=== PATIENT | female | born 1940 | race African-American/Black ===

== ENCOUNTER 2018-03-17 16:24 | Inpatient (IN) | payer MEDICARE, OTHER ==
[~2018-03-17 16:24] MED LIST: ISOVUE-370 76%-LOCM 1 ML ONE
[2018-03-17] MEDS ORDERED: fentaNYL Citrate/PF 2,000 MCG in Sodium Chloride 0.9% 60 ML IV SCH ×2 (16:47→19:33)
[2018-03-17] MEDS ORDERED: Piperacillin/Tazobactam 3.375 GM VIAL ONE (16:50)
--- NOTE | 2018-03-17 16:55 | CT ---
CT BRAIN NONCONTRAST: 03/17/18 at 4:44 p.m. HISTORY: 77-year-old female with acute onset of right facial droop, altered mental status, and seizure. Dr. Dodge gave this stroke alert protocol report by telephone to Dr. Pelletier of the Emergency Departmen t of 4:51 p.m. on 03/17/18. FINDINGS: There is no midline shift or any other mass effect. There is no evidence of acute intracranial hemor rhage, large cortical infarct, obstructive hydrocephalus, or extraaxial fluid collection. The calvar ium is intact. There is diffuse parenchymal volume loss. There are low attenuation areas in the whi te matter. These are nonspecific, but in a patient of this age, they are probably chronic ischemic w mariana matter changes due to microvascular atherosclerosis. IMPRESSION: 1) No acute intracranial findings. 2) Involutional changes and chronic ischemic white matter changes. Code CR jn [] POS: [facility]
[2018-03-17 16:56] LABS: #Eosinphils 0.1 thou/uL (0.0-0.7); #Lymphocytes 0.8 thou/uL (1.20-3.40); #Monocytes 0.4 thou/uL (0.11-0.59); #Neutrophils 12.9 thou/uL (1.40-6.50); %Basophils 0.2 % (0.0-1.0); %Eosinophils 0.6 % (0.0-10.0); %Lymphocytes 5.4 % (21.0-51.0); %Monocytes 2.5 % (0.0-10.0); %Neutrophils 91.4 % (42.0-75.0); Hemoglobin 11.9 g/dL (12.0-16.0); Mean Corpuscular Hemoglobin 25.9 pg (27.0-31.0); Mean Corpuscular Volume 86.3 fL (78.0-98.0); Mean Platelet Volume 6.9 fL (7.4-10.4); Platelet Count 193 thou/uL (130-400); Red Blood Cell (RBC) Count 4.57 mill/uL (4.20-5.40); White Blood Cell (WBC) Count 14.1 thou/uL (4.8-10.8)
[2018-03-17] MEDS ORDERED: levETIRAcetam In NaCl (Iso-Os) 1,500 MG in Premix Bag 1 BAG IVPB ONE (17:00)
[2018-03-17 17:21] LABS: Analyzer IN Cardio ER; Base Excess (BEa) 0.8 mEq/L (-2.0 to +3.0); CO2 Tension 49.9 mmHg (35.0-45.0); Calcium, Ionized 1.14 mmol/L (1.12-1.30); Carboxyhemoglobin (COHb) 0.4 gm% (0.0-3.0); Hemoglobin (Hb) 12.3 g/dL (12.0-16.0); O2 Tension (PaO2) 107.7 mmHg (> 70.0); Potassium - ABG Lab 3.22 mmol/L (3.70-5.30); pH, Arterial 7.35 (7.35-7.45)
[2018-03-17 17:22] LABS: ALV-art Gradient 257.725 (0-20); Puncture Site LRA
[2018-03-17 17:24] LABS: Bilirubin Negative (Negative); Blood, Urine Negative (Negative); Clarity CLOUDY (Clear); Glucose, Urine (Dipstick) Negative (Negative); Leukocyte Negative (Negative); Nitrite Negative (Negative); Protein, Urine (Dipstick) Negative (Neg-Trace); pH, Urine 6.5 (5.0-9.0)
[2018-03-17 17:32] LABS: Medtox Reader # READER 4
[2018-03-17 17:33] LABS: Amphetamine Not Detected (NotDetected); Barbiturates Screen Not Detected (NotDetected); Benzodiazepine Screen Not Detected (NotDetected); Cocaine Metabolite Screen Not Detected (NotDetected); Medtox Control Line Valid? VALID (VALID); Methadone Not Detected (NotDetected); Methamphetamine Not Detected (NotDetected); Opiate Screen Detected (NotDetected); Oxycodone Screen Not Detected (NotDetected); Phencyclidine (PCP) Not Detected (NotDetected); THC/Cannabinoid Screen Not Detected (NotDetected); Tricyclic Screen Not Detected (NotDetected)
[2018-03-17 17:38] LABS: INR-International Normal Ratio 1.1; Prothrombin Time 14.4 SEC (12.0-14.7)
[2018-03-17 17:40] LABS: PTT 19.3 SEC (22.9-36.1)
[2018-03-17 17:47] LABS: Acetaminophen Less than 6.0 mcg/mL (10.0-30.0); Alcohol Less than 10 mg/dL (Less than 10); CK (CPK) 75 U/L (29-168); Lipase 14 U/L (8-78); Magnesium 1.8 mg/dL (1.6-2.6); Salicylate Less than 8.0 mg/dL (15.0-30.0)
[2018-03-17 17:48] LABS: ALT (SGPT) 8 U/L (8-55); AST (SGOT) 15 U/L (5-34); Albumin 3.8 g/dL (3.4-4.8); Alkaline Phosphatase 105 U/L (40-150); Anion Gap 16 mmol/L (10-20); BUN (Urea Nitrogen) 13 mg/dL (9.8-20.1); Bilirubin, Total 0.5 mg/dL (0.2-1.2); Calc. Creatinine Clearance 0 mL/min (70-130); Calcium 8.7 mg/dL (7.8-10.44); Carbon Dioxide 21 mmol/L (23-31); Chloride 102 mmol/L (98-107); Estimated GFR-MDRD 63; Globulin 3.4 g/dL (2.4-3.5); Glucose 120 mg/dL (83-110); Potassium 3.3 mmol/L (3.5-5.1); Protein, Total 7.2 g/dL (6.0-8.3); Sodium 136 mmol/L (136-145)
[2018-03-17 17:52] LABS: CKMB 0.9 ng/mL (0-6.6); Troponin I Less than 0.010 ng/mL (< 0.028)
--- NOTE | 2018-03-17 17:58 | RAD ---
RADIOGRAPH CHEST 1 VIEW: Date: 03/17/18 Time: 5:21 p.m. HISTORY: 77-year-old female with altered mental status, status post seizure. Status post intubation. COMPARISON: 10/30/16. FINDINGS: There is a new endotracheal tube deep in the right main stem bronchus, at origin of right lower lobe bronchus. This is a supine image, which would be insensitive for pneumothorax detection. No cardiomeg sallie. Ectasia and tortuosity of the thoracic aorta. No consolidation or pulmonary edema. Lateral costo phrenic angles are sharp. IMPRESSION: 1. Endotracheal tube deep in the right main stem bronchus. 2. Ectasia and tortuosity of thoracic aorta. 3. No acute pulmonary findings. MERLE [] POS: [facility]
--- NOTE | 2018-03-17 18:06 | CT ---
CT ANGIOGRAM HEAD WITH CONTRAST CT ANGIOGRAM NECK WITH CONTRAST: 03/17/18 HISTORY: 77-year-old female with acute altered mental status and right sided facial droop. TECHNIQUE: IV contrast: 100 mL Isovue 370. Arterial bolus chasing technique scan from aortopulmonic window to vertex of head. Coronal and sagitt al 3D MIP reconstructions. FINDINGS: Endotracheal traverses the right main stem bronchus, with distal tip at origin of right lower lobe br onchus. Visualized upper lobes are grossly clear of consolidation. A second tube enters the left nasa l cavity with distal tip within the oropharyngeal airway. The oropharyngeal and nasopharyngeal airway is almost completely effaced by fluid and the presence of two tubes. The great vessels are ectatic and tortuous. IV contrast bolus opacification of these vessels is somew hat suboptimal. The brachiocephalic, left subclavian, left common carotid, distal portion of right co mmon carotid and the bilateral internal carotid arteries of neck demonstrate no high grade stenosis. All of these arteries are tortuous. Suboptimal visualization of the vertebral arteries in the mid and lower neck due to body habitus and streak artifact. Proximal portion of the right common carotid art magno is obscured by beam hardening artifact from dense contrast bolus in the right subclavian vein. No high grade stenosis or occlusion identified involving anterior and posterior circulation major art eries of [place], including bilateral M1 segments. Dr. Dodge gave this acute stroke alert protocol report by telephone to Dr. Rogers at 5:27 p.m. on beha lf of Dr. Pelletier who is currently attending to another patient. Specifically, the position of the en dotracheal tube was reported. IMPRESSION: 1. Endotracheal tube deep in the right main stem bronchus, at origin of right lower lobe bronchu s. 2. Second left nasopharyngeal tube. 3. No acute thrombosis, occlusion or high grade stenosis of major arteries of neck or [place] identified. 4. Some of the vessels are poorly visualized because of body habitus and IV contrast bolus atiya Ybarra CR POS: [facility]
--- NOTE | 2018-03-17 18:37 | RAD ---
RADIOGRAPH CHEST 1 VIEW: Date: 03/17/18 Time: 6:01 p.m. HISTORY: 77-year-old female status post adjustment of endotracheal tube and central line placement. COMPARISON: 03/17/18, 5:21 p.m. FINDINGS: The endotracheal tube has been retracted slightly, and is now at the soledad, with distal tip directed at the right main stem bronchus. An NG tube has been placed with distal tip in the left upper quadra nt, probably in the proximal body of the stomach. A right subclavian central line has been placed wit h distal tip overlying the upper portion of the right atrium. This is a supine image, which would be insensitive for pneumothorax detection. No pulmonary edema or consolidation. IMPRESSION: 1. Slight retraction of the endotracheal tube to the level of the soledad, now directed at the ri ght main stem bronchus. 2. Interval placement of right subclavian central vascular catheter. 3. Interval placement of nasogastric tube. MERLE [] POS: [facility]
[2018-03-17] MEDS ORDERED: Midazolam HCl 5 mg/ml Vial ONE (18:57)
[2018-03-17] MEDS ORDERED: Ondansetron HCl/PF 4 MG/2 ML Vial IVP PRN (19:28)
[2018-03-17] MEDS ORDERED: Acetaminophen 650 MG Suppository PR PRN (19:28)
[2018-03-17] MEDS ORDERED: Ventilator Sedation Protocol 1 EACH FS ONE (19:32)
[2018-03-17] MEDS ORDERED: Propofol BOLUS 1,000 MG/100 ML VIAL IV PRN (19:33)
[2018-03-17] MEDS ORDERED: Fentanyl BOLUS 250 ML IVPB PRN (19:33)
[2018-03-17] MEDS ORDERED: DISCONTINUE PREVIOUS NARCOTIC PAIN MEDICATIONS AND BENZODIAZEPINES FS SCH (19:33)
[2018-03-17] MEDS ORDERED: Propofol 1,000 MG/100 ML VIAL IV ONE (19:44)
[2018-03-17] MEDS: Sodium Chloride 0.9% 1,000 ML IV SCH (21:00)
--- NOTE | 2018-03-17 21:09 | CT ---
CTA THORAX WITH CONTRAST: 03/17/18 at 8:24 p.m. (Computed Tomographic Angiography, chest(noncoronary) with contrast material, and image postprocessin g) (PE protocol) HISTORY: 77-year-old female in respiratory failure. Dr. Dodge reported the position of the endotracheal tube by telephone to Dr. Pelletier at 8:59 p.m. on ; then to charge nurse, Shayne Barrett at 9:02 p.m. on 03/17/19. TECHNIQUE: IV injection of iodinated contrast: Additional 100 mL of Isovue 370 was given, in addition to the IV contrast bolus given for the CT angiogram of the head and neck. Scan acquisition timing attempted to coincide with iodinated contrast bolus reaching maximal density in pulmonary arteries. 3D MIP reconstructions. FINDINGS: There is excellent opacification of the pulmonary arteries. There is no pulmonary thromboembolism. Th ere is dilute contrast in the thoracic aorta. The endotracheal tube still traverses the right main st em bronchus, and is still within the right lower lobe bronchus. There is streaky air space density at the medial aspect of the left lower lobe, around the descending thoracic aorta and around left lower lobe pulmonary artery branches and bronchial branches. The configuration is suggestive of atelectasi s more likely than pneumonia. No moderate or large pleural effusion. Thin rind of subsegmental atelec tasis broadly abut the bilateral posterior pleural surfaces. No mediastinal lymphadenopathy. No pulmo nary edema. No pneumothorax. IMPRESSION: 1. No pulmonary thromboembolism. 2. Endotracheal tube still deep in the right main stem bronchus and right lower lobe bronchus. 3. Left lower lobe air space density, favored to represent atelectasis rather than pneumonia. jn[] POS: [facility]
[2018-03-17 21:22] LABS: Lactic Acid 1.4 mmol/L (0.5-2.2)
--- NOTE | 2018-03-17 21:24 | CT ---
CT ABDOMEN WITH CONTRAST CT PELVIS WITH CONTRAST: DATE: 03/17/18 at 8:24 p.m. HISTORY: 77-year-old female with sepsis. COMPARISON: 12/26/15 TECHNIQUE: IV injection of iodinated contrast media: 100 mL Isovue 370 Oral contrast media: Not administered. FINDINGS: Again noted is the lap band. The access port remains embedded in the subcutaneous fat to the left of midline, ventral to the abdominal wall musculature. The previously demonstrated extensive fat strandi ng in the subcutaneous fat on the right side, anterior to the anterior abdominal wall has significant ly improved. There is a new well circumscribed 6.5 x 3 x 4.5 cm fluid collection with mostly thin wal ls, but thick at some portions, in the subcutaneous fat anterior to the right anterior abdominal wall . It has density of 18 HU. Previously region of fat stranding and edema within the right anterior int raperitoneal cavity was surrounded by thin rim of soft tissue density, plus some fluid collection and air on the previous CT. Those have resolved, but there continues to be a circumferential thin rim (t hinner than before) of soft tissue density surrounding central clean fat density. This probably repre sents sequelae of previous postsurgical changes. There is no abscess within the abdominal cavity or p elvic cavity. There is descending and sigmoid colonic diverticulosis without acute diverticulitis. Fo ashley catheter within partially decompressed urinary bladder. No abdominal aortic aneurysm. No hydronep hrosis. Multiple hepatic cysts are again demonstrated. No liver abscess. No gross evidence of patholo gy of pancreas, adrenals, or spleen. No small bowel dilatation. No pneumoperitoneum or ascites. Dista l tip of NG tube is in the distal esophagus. IMPRESSION: 1. Laparoscopic gastric band. 2. Distal tip of nasogastric tube is in the distal esophagus. 3. Focal fluid collection in the superficial adipose tissues slightly ventral to the right lower quadrant abdominal wall, new since the previous CT. Etiology is uncertain. This could be a hematoma. Abscess is a possibility, somewhat less likely. 4. No evidence of abscess within the abdominal cavity or pelvic cavity. 5. Multiple hepatic cysts. MERLE Andre POS: [facility]
--- NOTE | 2018-03-17 21:37 | RAD ---
RADIOGRAPH CHEST 1 VIEW: Date: 03/17/18 Time: 8:59 p.m. HISTORY: Malpositioned endotracheal tube. COMPARISON: 03/17/18, 6:01 p.m. FINDINGS: The endotracheal tube has been retracted such that it is now in the mid/lower thoracic trachea, appro ximately 2 to 2.5 cm superior to the soledad. There has been interval development of small air space d ensity at the left base. Right subclavian central line and NG tube remain. The NG tube was noted to b e in the distal esophagus on the recent CT. There is a lap band. IMPRESSION: 1. Endotracheal tube has been repositioned to appropriate location. 2. Interval development of left lower lobe air space density, probably atelectasis, less likely pneumonia, although that is not excluded. 3. Nasogastric tube in distal esophagus. 4. Laparoscopic gastric band. MERLE [] POS: [facility]
[2018-03-17] MEDS: Famotidine/PF 20 mg/2ml Vial SLOW IVP SCH (22:18)
[2018-03-17] MEDS ORDERED: Magnesium Oxide 400 MG TAB PO PRN ×2 (23:01)
[2018-03-17] MEDS ORDERED: Potassium Phosphate 15 MMOL in Sodium Chloride 0.9% 250 ML 250 ML IV PRN (23:01)
[2018-03-17] MEDS ORDERED: Potassium Chloride 40 MEQ in Sodium Chloride 0.9% 250 ML 250 ML IVPB PRN (23:01)
[2018-03-17] MEDS ORDERED: CCU ELECTROLYTE REPLACEMENT PROTOCOL FS PRN (23:01)
[2018-03-17] MEDS ORDERED: Potassium Phosphate 12 MMOL in Sodium Chloride 0.9% 250 ML 250 ML IV PRN (23:01)
[2018-03-17] MEDS ORDERED: Magnesium 2 GM/NS 0.9% 100 ML 2 GM in Premix Bag 1 BAG IVPB PRN (23:01)
[2018-03-17] MEDS ORDERED: Potassium Phosphate 9 MMOL in Sodium Chloride 0.9% 100 ML IVPB PRN (23:01)
[2018-03-17] MEDS: Potassium Chloride 40 MEQ in Premix Bag 1 BAG IVPB PRN (23:28)
[2018-03-17] MEDS: Piperacillin/Tazobactam 4.5 GM in Sodium Chloride 0.9% 100 ML IVPB SCH (23:29)
[2018-03-18] MEDS: Propofol 1,000 MG/100 ML VIAL IV PRN ×3 (02:39→21:39)
[2018-03-18] MEDS: Sodium Chloride 0.9% 1,000 ML IV SCH ×2 (04:42→21:32)
[2018-03-18 05:04] LABS: Anion Gap 11 mmol/L (10-20); BUN (Urea Nitrogen) 11 mg/dL (9.8-20.1); Calc. Creatinine Clearance 146 mL/min (70-130); Calcium 8.3 mg/dL (7.8-10.44); Carbon Dioxide 25 mmol/L (23-31); Chloride 104 mmol/L (98-107); Estimated GFR-MDRD 81; Glucose 175 mg/dL (83-110); Potassium 3.5 mmol/L (3.5-5.1); Sodium 136 mmol/L (136-145)
[2018-03-18] MEDS: Piperacillin/Tazobactam 4.5 GM in Sodium Chloride 0.9% 100 ML IVPB SCH ×2 (05:26→12:30)
[2018-03-18] MEDS: Potassium Chloride 40 MEQ in Premix Bag 1 BAG IVPB PRN (05:42)
[2018-03-18 06:13] LABS: Band 23 % (5-11); Hemoglobin 10.8 g/dL (12.0-16.0); Hypochromia SLIGHT = 6-15 cells (100X) (0-5/hpf); Lymphocytes 5 % (21-51); MDiff Complete? YES; Mean Corpuscular HGB CONC 30.2 g/dL (32.0-36.0); Mean Corpuscular Volume 86.1 fL (78.0-98.0); Mean Platelet Volume 6.8 fL (7.4-10.4); Metamyelocyte 3 % (0-0); Monocytes 4 % (0-10); Neutrophil 65 % (42-75); PLT Morphology Comment Appears Adequate; Platelet Count 197 thou/uL (130-400); RBC Distribution Width 13.8 % (11.5-14.5); Red Blood Cell (RBC) Count 4.14 mill/uL (4.20-5.40); White Blood Cell (WBC) Count 19.9 thou/uL (4.8-10.8)
[2018-03-18 08:24] LABS: Actual Bicarbonate (HCO3a) 24.3 mEq/L (22-28); Base Excess (BEa) 0.4 mEq/L (-2.0 to +3.0); CO2 Tension 36.9 mmHg (35.0-45.0); Calcium, Ionized 1.08 mmol/L (1.12-1.30); Carboxyhemoglobin (COHb) 1.1 gm% (0.0-3.0); Hemoglobin (Hb) 11.7 g/dL (12.0-16.0); O2 Tension (PaO2) 117.4 mmHg (> 70.0); Potassium - ABG Lab 3.86 mmol/L (3.70-5.30); pH, Arterial 7.44 (7.35-7.45)
[2018-03-18 08:26] LABS: ALV-art Gradient 264.275 (0-20); Puncture Site LBA
[2018-03-18] MEDS ORDERED: Prevnar 13-Val Conj/PF 0.5 ML SYRINGE IM ONE (09:00)
--- NOTE | 2018-03-18 09:00 | RAD ---
PORTABLE CHEST 1 VIEW: Date: 03/18/18 Time: 0500 hours HISTORY: Respiratory failure. FINDINGS/IMPRESSION: No significant interval change is seen since the previous exam of 03/17/18. POS: [facility]
[2018-03-18] MEDS: Famotidine/PF 20 mg/2ml Vial SLOW IVP SCH ×2 (09:10→21:00)
[2018-03-18 12:24] LABS: CSF, Glucose 30 mg/dl (40-70)
--- NOTE | 2018-03-18 12:31 | RAD ---
FLUOROSCOPICALLY GUIDED LUMBAR PUNCTURE: Date: 03/18/18 HISTORY: Evaluate for meningitis. TECHNIQUE/FINDINGS: Informed consent was obtained from the patient's family. Radiation Dosimetry: 0.7 minutes of fluoroscopy and DAP of 405 mGy*cm^2. The L3-4 intervertebral space was localized using fluoroscopy. The overlying skin was prepped and daphnie ped in the usual sterile manner. A 22 gauge spinal needle was introduced into the subarachnoid space. Initial tap suggested CSF to be bloody. Purulent and bloody fluid was removed. A total of approximat noel 15 mL of CSF fluid was removed without difficulty. Specimen sent to pathology. IMPRESSION: Successful fluoroscopically guided L3-4 lumbar puncture. POS: [facility]
[2018-03-18 13:03] LABS: CSF, Protein 580 mg/dL (15-40)
[2018-03-18 13:16] LABS: Color Of CSF Supernatant STRAW (Colorless); Tube # 2; Unspun CSF Color RED (Colorless)
[2018-03-18 13:38] LABS: Clarity Cloudy/Turbid (Clear); Tube # 1
[2018-03-18 13:40] LABS: CSF Source CSF; RBC Count - Manual 56500 /cumm (None Seen); WBC/NonHematics Count - Manual 26100 /cumm (0-5)
--- NOTE | 2018-03-18 13:42 | PDOC.EVN ---
Event Note - Event Note Event Note: Pt seen and examined. No H&P available yet.care discussed w Grand daughter at bedside and daughter on phone. Pt has h/o seizures and is on meds. Chart reviewed/ ? Seizures Vs Sepsis including meningitis/encephalitis LP to be done today.Add West Nile Viral IgM as cases reported in community will consult Neurology cont empiric ABx. IV keppra reconcile home meds will follow vent management per PCCM.Appreciate input
[2018-03-18 13:45] LABS: Cell Count Non Hematic 8 %; Lymphocytes 13 %; Segmented Neutrophils 79 %
[2018-03-18 14:00] LABS: CSF Source CSF; RBC Count - Manual 34500 /cumm (None Seen); WBC/NonHematics Count - Manual 15000 /cumm (0-5)
[2018-03-18] MEDS ORDERED: cefTRIAXone\\ROCEPHIN 2 GM in Sodium Chloride 0.9% 100 ML IVPB SCH ×2 (14:00→21:00)
[2018-03-18 14:04] LABS: Cell Count Non Hematic 10 %; Lymphocytes 5 %; Segmented Neutrophils 85 %
--- NOTE | 2018-03-18 14:11 | PDOC.PN ---
- Subjective Encounter Start Date: 03/18/18 Encounter Start Time: 14:09 Subjective: care discussed w Grand daughter at bedside -: pt has H/O Seizures and takes meds at home - Objective Resuscitation Status: Resuscitation Status FULL:Full Resuscitation MAR Reviewed: Yes Vital Signs & Weight: Vital Signs (12 hours) Temp Pulse Resp BP Pulse Ox 03/18/18 12:09 70 03/18/18 12:01 70 12 98 03/18/18 12:00 16 03/18/18 07:49 80 164/97 H 03/18/18 07:47 77 15 100 03/18/18 07:00 99.3 F 03/18/18 06:00 12 03/18/18 04:00 100.2 F H 12 03/18/18 02:53 73 100 Weight Weight 304 lb 3.806 oz Most Recent Monitor Data Heart Rate from ECG 70 NIBP 147/90 NIBP BP-Mean 129 Respiration from ECG 13 SpO2 98 I&O: 03/17/18 03/18/18 03/19/18 06:59 06:59 06:59 Intake Total 1487 Output Total 651 320 Balance 836 -320 Result Diagrams: 03/18/18 04:25 03/18/18 04:25 Additional Labs: Accuchecks 03/17/18 16:36 POC Glucose 171 H Microbiology 03/17/18 18:21 Nasal swab Influenza Types A,B Direct EIA - Final 03/18/18 10:56 Spinal Fluid - Aspirate Body Fluid Culture - Preliminary 03/17/18 17:30 Venous blood - Left Hand Blood Culture - Preliminary Specimen has been received and culture in progress. No Growth to date. 03/17/18 17:21 Venous blood - Right Arm Blood Culture - Preliminary Specimen has been received and culture in progress. No Growth to date. 03/17/18 17:16 Urine jefferson catheter Urine Culture - Preliminary Laboratory Tests 03/17/18 03/17/18 03/17/18 16:44 16:44 17:21 Lactic Acid 3.5 H Troponin I Less than 0.010 B-Natriuretic Peptide 151.9 H TSH 3rd Generation Fluid Clarity CSF Glucose CSF Total Protein 03/17/18 03/17/18 03/18/18 17:21 20:48 10:56 Lactic Acid 1.4 Troponin I B-Natriuretic Peptide TSH 3rd Generation 1.6378 Fluid Clarity Cloudy/Turbid H CSF Glucose CSF Total Protein 03/18/18 10:56 Lactic Acid Troponin I B-Natriuretic Peptide TSH 3rd Generation Fluid Clarity CSF Glucose 30 L CSF Total Protein 580 H Phys Exam - Physical Examination Constitutional: NAD Intubated HEENT: PERRLA, moist MMs, sclera anicteric, oral pharynx no lesions ETT Neck: no nodes, no JVD, supple, full ROM Respiratory: no wheezing, no rales, no rhonchi, clear to auscultation bilateral Cardiovascular: RRR, no significant murmur, no rub Gastrointestinal: soft, non-tender, no distention Musculoskeletal: no edema, pulses present Neurological: non-focal, normal sensation, moves all 4 limbs Psychiatric: normal affect, A&O x 3 Skin: no rash Dx/Plan (1) Acute respiratory failure with hypoxia Code(s): J96.01 - ACUTE RESPIRATORY FAILURE WITH HYPOXIA Status: Acute (2) Seizures Code(s): R56.9 - UNSPECIFIED CONVULSIONS Status: Acute (3) Sepsis Code(s): A41.9 - SEPSIS, UNSPECIFIED ORGANISM Status: Acute Comment: ? meningitis/encephalitis (4) Altered mental status Code(s): R41.82 - ALTERED MENTAL STATUS, UNSPECIFIED Status: Acute (5) Dyslipidemia Code(s): E78.5 - HYPERLIPIDEMIA, UNSPECIFIED Status: Chronic (6) HTN (hypertension) Code(s): I10 - ESSENTIAL (PRIMARY) HYPERTENSION Status: Chronic (7) Morbid obesity with BMI of 40.0-44.9, adult Code(s): E66.01 - MORBID (SEVERE) OBESITY DUE TO EXCESS CALORIES; Z68.41 - BODY MASS INDEX (BMI) 40.0-44.9, ADULT Status: Chronic - Plan plan discussed w/ family, continue antibiotics, DVT proph w/SCDs Vent support.supportive care.weaning per protocol -: add Rocephin for empiricially covering meningitis.on Vanco+Zosyn -: LP today.Follow results.add West Nile IgM. -: consult neurology. -: am labs.reconcile home meds * . Review of Systems - Review of Systems Other: can not be obtained due to intubated and sedated status - Medications/Allergies Allergies/Adverse Reactions: Allergies Allergy/AdvReac Type Severity Reaction Status Date / Time NSAIDS (Non-Steroidal Allergy Verified 10/30/16 15:52 Anti-Inflamma aspirin AdvReac Verified 10/30/16 15:52 Medications: Current Medications Albuterol/Ipratropium (Duoneb) 3 ml NEB P3MS-IE [facility] Last Admin: 03/18/18 12:01 Dose: 3 ml Famotidine (Pepcid) 20 mg SLOW IVP BID [facility] Last Admin: 03/18/18 09:10 Dose: 20 mg Sodium Chloride (Normal Saline 0.9%) 1,000 mls @ 75 mls/hr IV .[id number] [facility] Last Admin: 03/18/18 04:42 Dose: 1,000 mls Levetiracetam 500 mg/ Device 100 mls @ 200 mls/hr IVPB BID [facility] Last Admin: 03/18/18 09:10 Dose: 100 mls Fentanyl Citrate 2,000 mcg/ (Sodium Chloride) 100 mls @ 0 mls/hr IV INF [facility]; Protocol Stop: 04/16/18 19:33 Fentanyl Citrate (Fentanyl Bolus) 250 mls @ 0 mls/hr IVPB PRN PRN PRN Reason: Breakthrough pain/agitation Stop: 04/16/18 19:33 Potassium Chloride 40 meq/ (Sodium Chloride) 270 mls @ 135 mls/hr IVPB ASDIR PRN PRN Reason: FOR SERUM K+ 2.5 - 3.5 Potassium Chloride 40 meq/ (Device) 100 mls @ 50 mls/hr IVPB ASDIR PRN PRN Reason: FOR SERUM K+ 2.5 - 3.5 Last Admin: 03/18/18 05:42 Dose: 100 mls Magnesium Sulfate 1 gm/ Sodium (Chloride) 102 mls @ 102 mls/hr IV PRN PRN PRN Reason: MAG LEVEL 1.4 - 2.0 Last Admin: 03/18/18 13:00 Dose: 102 mls Magnesium Sulfate 2 gm/ Device 100 mls @ 100 mls/hr IVPB ASDIR PRN PRN Reason: MAGNESIUM < 1.4 Potassium Phosphate 9 mmol/ (Sodium Chloride) 103 mls @ 25.75 mls/hr IVPB ASDIR PRN PRN Reason: Phosphate 1.0-1.8 Potassium Phosphate 12 mmol/ (Sodium Chloride) 254 mls @ 63.5 mls/hr IV ASDIR PRN PRN Reason: Serum phosphate 0.5-0.9 Potassium Phosphate 15 mmol/ (Sodium Chloride) 255 mls @ 63.75 mls/hr IV ASDIR PRN PRN Reason: Serum Phos < 0.5 Vancomycin HCl 2 gm/ Sodium (Chloride) 500 mls @ 250 mls/hr IVPB 0100 [facility] Last Admin: 03/18/18 01:59 Dose: 500 mls Ceftriaxone Sodium 2 gm/ (Sodium Chloride) 100 mls @ 14 mls/hr IVPB NOW [facility] Stop: 03/18/18 16:00 Ampicillin Sodium 2 gm/ Sodium (Chloride) 100 mls @ 200 mls/hr IVPB Q4HR CHUCKY Ceftriaxone Sodium 2 gm/ (Sodium Chloride) 100 mls @ 200 mls/hr IVPB Q12HR CHUCKY Lorazepam (Ativan) 2 mg SLOW IVP Q1H PRN PRN Reason: Breakthrough agitation Stop: 04/16/18 19:33 Magnesium Oxide (Magnesium Oxide) 400 mg PO BIDPRN PRN PRN Reason: FOR SERUM MAG 1.4 - 2.0 Magnesium Oxide (Magnesium Oxide) 800 mg PO PRN PRN PRN Reason: FOR SERUM MAG < 1.4 Miscellaneous Medication (Pharmacy To Dose) 1 each IVPB PRN PRN PRN Reason: . Miscellaneous Medication (Phos-Nak) 1 pkt PO TIDPRN PRN PRN Reason: FOR PHOS LEVEL 1.0 - 1.8 Miscellaneous Medication (Phos-Nak) 2 pkt PO TIDPRN PRN PRN Reason: FOR PHOS LEVEL 0.5 - 1.0 Morphine Sulfate (Morphine Sulfate) 2 mg SLOW IVP Q1H PRN PRN Reason: BREAKTHROUGH PAIN/AGITATION Stop: 04/16/18 19:33 Discontinue Previous Narcotic Pain Medications And Benzodiazepines 1 each FS .ONE CHUCKY Stop: 04/16/18 19:33 Ccu Electrolyte (Replacement Protocol) 0 each FS PRN PRN PRN Reason: FOR ELECTROLYTE REPLACEMENT Ondansetron HCl (Zofran) 4 mg IVP Q6H PRN PRN Reason: Nausea/Vomiting Potassium Chloride (K-Dur) 40 meq PO ASDIR PRN PRN Reason: FOR SERUM K+ 2.5 - 3.5 Potassium Chloride (Klor-Con) 40 meq PER TUBE ASDIR PRN PRN Reason: FOR SERUM K+ 2.5-3.5 Propofol (Diprivan) 1,000 mg IV INF PRN; Protocol PRN Reason: TO ACHIEVE GOAL RASS Stop: 04/16/18 19:33 Last Admin: 03/18/18 10:10 Dose: 1,000 mg Propofol (Diprivan Bolus) 20 mg IV Q5MIN PRN PRN Reason: BREAKTHROUGH AGITATION Stop: 04/16/18 19:33 Sodium Chloride (Flush - Normal Saline) 10 ml IVF Q12HR CHUCKY Sodium Chloride (Flush - Normal Saline) 10 ml IVF PRN PRN PRN Reason: Saline Flush
[2018-03-18] MEDS: cefTRIAXone\\ROCEPHIN 2 GM in Sodium Chloride 0.9% 100 ML IVPB SCH ×3 (15:07→20:59)
[2018-03-18] MEDS: Ampicillin 2 GM in Sodium Chloride 0.9% 100 ML IVPB SCH ×2 (17:30→21:00)
[2018-03-18] MEDS: Dexamethasone 4 mg/ml Vial SLOW IVP SCH (17:46)
[2018-03-18] MEDS: hydrALAZINE 20 MG/ML VIAL SLOW IVP PRN (17:54)
--- NOTE | 2018-03-18 20:29 | CON ---
DATE OF CONSULTATION: 03/18/2018 HISTORY OF PRESENT ILLNESS: Ms. Black is a 77-year-old female who presented with altered mental stat us. She had an extensive prolonged workup in the Emergency Department. She subsequently was admitte d, mechanically ventilated. I saw her in consultation this morning. Dr. Shah is gracious enough to do a lumbar puncture under fl uoroscopy at the bedside this morning. This has shown a neutrophilia in her spinal fluid with a low glucose and a high protein. Blood cultu res showing gram-positive cocci. I was consulted to assist in her management. PAST MEDICAL HISTORY: 1. Remarkable for an admission in October 2016 with impaired speech and facial droop. She was discharge d with a diagnosis of new-onset seizures. 2. She has history of hypertension. 3. History of lipid disorder. 4. History of ulcer disease in the past. 5. History of anxiety and pain. 6. History of DJD. 7. History of trigeminal neuralgia. 8. History of cholecystectomy, herniorrhaphy, bilateral knee replacement, bilateral tubal ligation, exploratory laparotomy for ulcer disease, cataract surgery, appendectomy, bladder suspension, and a l ap band. SOCIAL HISTORY: She is a nonsmoker, nondrinker, nondrug user. She apparently lives with her family. There is no history of vascular disease or lung disease in early age. ALLERGIES: To ASPIRIN, NONSTEROIDALS, and TYLENOL reported. REVIEW OF SYSTEMS: Not obtainable. PHYSICAL EXAMINATION: VITAL SIGNS: She is afebrile, heart rate is 87, blood pressure 180/105. HEENT: Pupils are equal. Sclerae are anicteric. NECK: Without lymphadenopathy. LUNGS: Clear. HEART: Regular rhythm. S1 and S2 are normal. ABDOMEN: Soft and nontender. EXTREMITIES: Without clubbing, cyanosis, or edema. LABORATORY DATA: White count 19.9, hemoglobin 10.8, platelets 297,000. His electrolytes are normal. PH 7.4, CO2 of 36, pO2 of 117. IMPRESSION: Meningitis, likely Streptococcal given the positive blood culture showing gram-positive cocci. PLAN: Mechanical ventilation, steroids, antibiotics, Infectious Disease input. She needs an EEG in the morning just to rule out subclinical seizures. Critical care time, 40 minutes.
[2018-03-18] MEDS: Carvedilol 25 MG TAB PO SCH (21:00)
[2018-03-19] MEDS: Ampicillin 2 GM in Sodium Chloride 0.9% 100 ML IVPB SCH ×6 (00:01→20:38)
[2018-03-19] MEDS: Dexamethasone 4 mg/ml Vial SLOW IVP SCH ×4 (05:14→17:13)
[2018-03-19 05:35] LABS: #Lymphocytes 0.8 thou/uL (1.20-3.40); #Monocytes 0.7 thou/uL (0.11-0.59); #Neutrophils 17.8 thou/uL (1.40-6.50); %Eosinophils 0.1 % (0.0-10.0); %Lymphocytes 4.1 % (21.0-51.0); %Monocytes 3.8 % (0.0-10.0); Hemoglobin 10.3 g/dL (12.0-16.0); Mean Corpuscular HGB CONC 30.2 g/dL (32.0-36.0); Mean Platelet Volume 7.4 fL (7.4-10.4); Platelet Count 189 thou/uL (130-400); RBC Distribution Width 13.9 % (11.5-14.5); Red Blood Cell (RBC) Count 3.96 mill/uL (4.20-5.40); White Blood Cell (WBC) Count 19.4 thou/uL (4.8-10.8)
[2018-03-19 05:41] LABS: Anion Gap 11 mmol/L (10-20); BUN (Urea Nitrogen) 12 mg/dL (9.8-20.1); Calc. Creatinine Clearance 124 mL/min (70-130); Calcium 8.3 mg/dL (7.8-10.44); Carbon Dioxide 24 mmol/L (23-31); Chloride 108 mmol/L (98-107); Estimated GFR-MDRD 84; Glucose 152 mg/dL (83-110); Magnesium 2.4 mg/dL (1.6-2.6); Potassium 3.6 mmol/L (3.5-5.1); Sodium 139 mmol/L (136-145)
[2018-03-19 07:26] LABS: Base Excess (BEa) -3.5 mEq/L (-2.0 to +3.0); Calcium, Ionized 1.12 mmol/L (1.12-1.30); Carboxyhemoglobin (COHb) 0.8 gm% (0.0-3.0); Hemoglobin (Hb) 12.1 g/dL (12.0-16.0); O2 Tension (PaO2) 135.4 mmHg (> 70.0); Potassium - ABG Lab 3.49 mmol/L (3.70-5.30); pH, Arterial 7.38 (7.35-7.45)
[2018-03-19 07:27] LABS: Puncture Site LRA
--- NOTE | 2018-03-19 07:42 | HP ---
DATE OF ADMISSION: 03/17/2018 PRIMARY CARE PHYSICIAN: None reported. CODE STATUS: FULL CODE. TIME OF EVALUATION 7:10 p.m. CHIEF COMPLAINT: Unresponsive. HISTORY OF PRESENT ILLNESS: This is a 77-year-old female patient with past medical history of seizur es, history of hypertension, gastric ulcer, hyperlipidemia, who came to the hospital, brought in by Chelsie DAMON after the patient was found unresponsive by family member, last time seen normal was in the [facility], with no clear triggers, no aggravating factors. As per ER report, the patient had some episode of seizure activity during the time she was being brought in. The patient also has a temperature of 10 1.7. Not much history is available at this point. Symptoms are severe. The patient is intubated, L P was attempted, but unsuccessful. Blood pressure has been in the high side. REVIEW OF SYSTEMS: Unable to obtain, the patient is intubated. PAST MEDICAL HISTORY: As mentioned in the HPI. PAST SURGICAL HISTORY: Appendectomy, cholecystectomy, bilateral knee replacement. PSYCHIATRIC HISTORY: No previous psychiatric history. SOCIAL HISTORY: No alcohol, no drugs. No smoking history. FAMILY HISTORY: Father with cardiac disease, maternal history of cardiac disease. ALLERGIES: ASPIRIN, NSAIDS, TYLENOL. MEDICATIONS: Unable to obtain. Family did not bring the medication list. PHYSICAL EXAMINATION: VITAL SIGNS: Blood pressure 155/105 with a heart rate 89, respiratory rate was 26, temperature 100.5 , saturation 100 on a vent. GENERAL APPEARANCE: Patient is sedated and intubated. HEENT: Eyes: Normal conjunctivae. Moist oral mucosa. Anicteric. NECK: No JVD. RESPIRATORY: Bilateral air entry. No rales, no wheezing. Symmetric expansion. CARDIOVASCULAR: Normal rate, regular rhythm. No murmurs, no gallop. No edema. ABDOMEN: Soft, normal bowel sounds. MUSCULOSKELETAL: Baseline range of motion and strength. No tenderness. SKIN: Warm and intact. No pallor. No rash. No redness. EXTREMITIES: Peripheral pulses are present. Capillary refill seems to be intact. NEUROLOGIC: The patient has some seizure activity, not present right now. No evidence of any new fo kenroy weakness. PSYCHIATRIC: Unable to explore. LABORATORY AND DIAGNOSTIC DATA: EKG was discussed with endorsing physician show possible junctional rhythm at the rate of 101, prolonged QTC. Radiology head CT with negative chest x-ray, ET tube place d deep in the right bronchus. ET tube and central line placed in place, bilateral infiltrates presen t. Labs are reviewed. White count 14.1, RBC 457, hemoglobin 11.9, MCV 86.3, platelet count 193. Co agulation: PT 14.4, INR 1.1, PTT 19.3. A blood gas was reviewed. The patient has pH 7.35 with a pC O2 of 49 and oxygen 107. That was done on SIMV, mechanical rate 14, respiratory 16, tidal volume 500 , pressure support of 10 and PEEP 5. The sodium 136, potassium 3.3, chloride 102, carbon dioxide 21, anion gap 16, BUN 13, creatinine 1.0, GFR 63, glucose 120, lactic acid 3.5, calcium 8.7, magnesium 1 .8, total bilirubin 0.5, AST 15, ALT 8, alkaline phosphatase 105, ammonia 73. Beta natriuretic pepti de 151. Toxicology was negative. ASSESSMENT AND PLAN: The patient will be placed in the hospital for a medical problem. 1. Sepsis. The patient has fever. The patient has a leukocytosis, possible source is pneumonia. T here was also concern for PRODUCT SUPPORT MANAGER infection given presentation with seizure. Patient has been started on broad spectrum antibiotics, continue hydration, continue symptomatic treatment, followup culture, __ ___. 2. Possible status epilepticus. The patient had multiple episodes of seizures while in the hospital , although they were not so severe, patient was intubated, Keppra loading dose was also given sedatio n with propofol. Patient's seizure activity has stopped. 3. Acute encephalopathy. Patient was found unresponsive, probably due to previous seizures and post ictal state when the patient was not in presence of any family member, other etiologies to be ruled o ut including PRODUCT SUPPORT MANAGER infection. Treatment report will be focused on the etiology. Management as above. 4. Morbidly obese. Patient should be consult to lose weight after the patient recovers. 5. Acute hypercapnic respiratory failure with CO2 retention of 49, hypoxia. Patient receiving inspi red oxygen of 60 and only able to sustain pO2 and ABG of 107, the patient was continued to be intubat ed, we will provide nebulizers, we will monitor and treat accordingly. 6. Hypokalemia. The patient has potassium 3.22, the patient will need potassium replacement as need ed. 7. Lactic acidosis. Initial lactate of 3.5, underlying condition. 8. Hyperglycemia. No history of diabetes reported. We will monitor, no need for any acute interven tion at this point. We will treat accordingly. 9. Possible multifocal pneumonia seen on the x-ray, patient with broad spectrum antibiotics, continu e symptomatic treatment with nebulizers. Continue ventilatory support for acute hypoxic and hypercap hakeem respiratory failure. 10. Hypertensive urgency. The patient presented with systolic blood pressure in the 190s, reconcile home medications, adjust treatment as needed, likely to improve after sedation started. 12. Hyperlipidemia. Low cholesterol is advised, reconcile home medications once updated. 13. Deep venous thrombosis prophylaxis. We will place the patient on sequential compression devices for now. No Lovenox or heparin for now given attempt for the can be restarted tomorrow.
--- NOTE | 2018-03-19 07:42 | CON ---
DATE OF CONSULTATION: 03/19/2018 REASON FOR CONSULTATION: Change in mental status and fever. HISTORY OF PRESENT ILLNESS: A 77-year-old patient who has had a few admissions over the past few years at [facility]. She has a history of hypertension and obesity with a body mass index of 40, osteoarthritis and in 2016 had been admitted with new onset seizure activity and hypertensive emergency. MRI of the brain at that time did not show any acute intracranial abnormality. An echocardiogram demonstrated an ejection fraction of 50-55% with diastolic dysfunction. This time she was admitted on 03/18/2018 with mental status changes with facial droop and some seizure activity with a temperature of 101.7. The initial findings included a pulse 94, respirations 14 , BP 150/100, temperature 100.5. Initially she appeared pain free with a normal head exam. ENT exam was normal and the lungs without any crackles or wheezing. The patient was intubated and being ventilated mechanically. The patient had evaluation for CVA, which was negative with angiograms. The initial concern was possible pneumonia and respiratory failure. Findings at the beginning included a white cell count 14,000, hemoglobin 11, platelets 193. Chemistry with a sodium 136, creatinine 1.03, glucose 128, normal liver profile, albumin 3.8, globulin 3.4 and TSH 1.6. Urinalysis was normal. She eventually had a fluoroscopy guided CSF evaluation that showed 26,000 WBCs, 56, 000 RBCs with 79% neutrophils and 13% lymphocytes. The glucose was 30 and the total protein was 580. Microbiology thus far; we have one set of blood cultures with gram positive cocci identified which appeared to be Streptococci, the DNA testing and did not find a match for Strep pneumoniae or Streptococcus pyogenes or group B Streptococcus. The CSF gram stain did not show any organisms. Currently the patient is intubated. She is sedated, moving her body from time to time, does not follow commands. We do not have any further information regarding her review of systems from admission. 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 PAST SURGICAL HISTORY: Includes appendectomy, cholecystectomy, hernia repair, and knee replacements bilaterally. Lap band. SOCIAL HISTORY: Never a smoker, never used alcoholic beverages. No drug use. FAMILY HISTORY: Coronary artery disease. ALLERGIES: ASPIRIN, NSAIDS, TYLENOL. MEDICATIONS: DuoNeb, ampicillin, ceftriaxone, Fentanyl, Keppra, magnesium, vancomycin, electrolytes. PHYSICAL EXAMINATION: VITAL SIGNS: T-max 100.5, currently 98.2, BP 150/90, pulse 85, respirations 17 , O2 sat 97%. SKIN: The patient has a right subclavian central line, NG tube, ET tube. No skin ulcers, no petechiae or purpura. No lymphadenopathy. HEENT: Ocular movements are conjugate. Pupils are miotic. NECK: Supple. LUNGS: Symmetric coarse breath sounds. HEART: S1, S2, regular rate without murmurs. ABDOMEN: Soft, not distended or tender. No ascites. No distension. EXTREMITIES: She seems to be able to move extremities. Plantar responses are flexure. No evidence of clonus. Pulses 1+ in dorsalis pedis. Extremities are warm to touch. NEUROLOGIC: We cannot do a neurological testing at this time beyond the simple measures described. LABORATORY: The latest white cell count 19.4, hemoglobin 10, platelets of 189, 92% neutrophils. Chemistry reveals sodium 139, creatinine 0.8, CO2 24. Microbiology described above. Chest x-ray without infiltrates. Chest CT angiogram with no pulmonary embolism and left lower lobe airspace density. ASSESSMENT: 1. Obesity with hypertension. 2. History of seizures. 3. Change in mental status with fever and abnormal CSF with Streptococcus species bacteremia. 4. Hypoglycorrhachia with elevated protein in CSF. DISCUSSION: Differential diagnosis includes Streptococcus species meningitis, other than the species ruled out by the Verigene test. The possibilities include group C or G Streptococcus, Streptococcus anginosus or other oral Streptococci, Streptococcus suis if the patient has exposure to pigs or other type of hog. Contamination of the sample of blood which thus far has resulted + is another possibility, in that case the potential microbiology of this inflammatory process would have to be expanded. A focal inflammatory process in the parameningeal structures of the brain and spine is also considered possible. Imaging of those areas whenever possible including MRI of the brain, particularly would be recommended. Add ampicillin, increase Rocephin to twice daily. Continue vancomycin until final identification of the organisms and final results of CSF cultures. MTDD
[2018-03-19] MEDS: Carvedilol 25 MG TAB PO SCH ×2 (08:22→20:38)
[2018-03-19] MEDS: Famotidine/PF 20 mg/2ml Vial SLOW IVP SCH (08:23)
[2018-03-19] MEDS: cefTRIAXone\\ROCEPHIN 2 GM in Sodium Chloride 0.9% 100 ML IVPB SCH ×2 (08:23→20:39)
[2018-03-19] MEDS: Propofol 1,000 MG/100 ML VIAL IV PRN ×2 (08:29→16:10)
[2018-03-19 09:10] LABS: Clarity Clear (Clear); Tube # 4
[2018-03-19] MEDS: Pantoprazole 40 MG VIAL IVP SCH (09:46)
[2018-03-19] MEDS: Losartan 25 MG TAB PO SCH (09:47)
[2018-03-19] MEDS: Sodium Chloride 0.9% 1,000 ML IV SCH (13:08)
--- NOTE | 2018-03-19 13:38 | PDOC.PN ---
- Subjective Encounter Start Date: 03/19/18 Encounter Start Time: 13:37 Subjective: remains intubated.no overnight events -: no family at bedside - Objective Resuscitation Status: Resuscitation Status FULL:Full Resuscitation MAR Reviewed: Yes Vital Signs & Weight: Vital Signs (12 hours) Temp Pulse Resp BP Pulse Ox 03/19/18 12:00 98.1 F 17 03/19/18 10:08 77 136/84 03/19/18 10:07 79 12 97 03/19/18 10:00 12 03/19/18 08:00 99.3 F 12 97 03/19/18 06:52 85 157/90 H 03/19/18 06:37 91 17 97 03/19/18 04:00 98.2 F 03/19/18 02:17 83 153/94 H 99 Weight Admit Weight 300 lb Weight 300 lb 11.368 oz Most Recent Monitor Data Heart Rate from ECG 74 NIBP 134/80 NIBP BP-Mean 98 Respiration from ECG 12 SpO2 96 I&O: 03/18/18 03/19/18 03/20/18 06:59 06:59 06:59 Intake Total 1487 2933 200 Output Total 651 1326 430 Balance 836 1607 -230 Result Diagrams: 03/19/18 05:02 03/19/18 05:02 Additional Labs: Microbiology 03/17/18 18:21 Nasal swab Influenza Types A,B Direct EIA - Final 03/18/18 10:56 Spinal Fluid - Aspirate Body Fluid Culture - Preliminary 03/17/18 17:30 Venous blood - Left Hand Blood Culture - Preliminary Specimen has been received and culture in progress. No Growth to date. 03/17/18 17:21 Venous blood - Right Arm Blood Culture - Preliminary Alpha-Hemolytic Streptococcus 03/17/18 17:16 Urine jefferson catheter Urine Culture - Preliminary Laboratory Tests 03/17/18 03/18/18 03/18/18 16:44 04:25 10:56 WBC 14.1 H 19.9 H Fluid WBC (Manual) Fluid RBC (Manual) Fluid Seg Neutrophil % CSF Glucose 30 L CSF Total Protein 580 H 03/18/18 03/19/18 10:56 05:02 WBC 19.4 H Fluid WBC (Manual) 57004 H Fluid RBC (Manual) 20668 H Fluid Seg Neutrophil % 85 H* CSF Glucose CSF Total Protein Phys Exam - Physical Examination Constitutional: NAD HEENT: PERRLA, moist MMs, sclera anicteric, oral pharynx no lesions Respiratory: no wheezing, no rales, no rhonchi, clear to auscultation bilateral Cardiovascular: RRR, no significant murmur Gastrointestinal: soft, no distention, positive bowel sounds Musculoskeletal: no edema, pulses present Dx/Plan (1) Morbid obesity with BMI of 40.0-44.9, adult Code(s): E66.01 - MORBID (SEVERE) OBESITY DUE TO EXCESS CALORIES; Z68.41 - BODY MASS INDEX (BMI) 40.0-44.9, ADULT Status: Chronic Comment: Suspected Grp A Strept as positive in blood (2) Acute respiratory failure with hypoxia Code(s): J96.01 - ACUTE RESPIRATORY FAILURE WITH HYPOXIA Status: Acute (3) Seizures Code(s): R56.9 - UNSPECIFIED CONVULSIONS Status: Acute (4) Sepsis Code(s): A41.9 - SEPSIS, UNSPECIFIED ORGANISM Status: Acute Comment: ? meningitis/encephalitis (5) Altered mental status Code(s): R41.82 - ALTERED MENTAL STATUS, UNSPECIFIED Status: Acute (6) Dyslipidemia Code(s): E78.5 - HYPERLIPIDEMIA, UNSPECIFIED Status: Chronic (7) HTN (hypertension) Code(s): I10 - ESSENTIAL (PRIMARY) HYPERTENSION Status: Chronic (8) Acute bacterial meningitis Code(s): G00.9 - BACTERIAL MENINGITIS, UNSPECIFIED Status: Acute - Plan respiratory therapy, DVT proph w/SCDs Cont Empiric ABx. On Ampicillin,high dose Rocephin & Vancomycin.follow Cx -: cont vent support.PCCM following -: Cont IV keppra. EEG done today.takes PO keppra at home -: hemodynamically stable -: add PPI as started on high dose steroids for possb meneingitis * .AM labs Review of Systems - Review of Systems Other: can not be obtained due to intubated/sedated state - Medications/Allergies Allergies/Adverse Reactions: Allergies Allergy/AdvReac Type Severity Reaction Status Date / Time NSAIDS (Non-Steroidal Allergy Verified 10/30/16 15:52 Anti-Inflamma aspirin AdvReac Verified 10/30/16 15:52 Medications: Current Medications Albuterol/Ipratropium (Duoneb) 3 ml NEB [id number] CHUCKY Last Admin: 03/19/18 10:07 Dose: 3 ml Carvedilol (Coreg) 25 mg PO BID [facility] Last Admin: 03/19/18 08:22 Dose: 25 mg Dexamethasone (Decadron) 4 mg SLOW IVP Q6HR [facility] Last Admin: 03/19/18 13:07 Dose: 4 mg Famotidine (Pepcid) 20 mg SLOW IVP BID [facility] Last Admin: 03/19/18 08:23 Dose: 20 mg Hydralazine HCl (Apresoline) 10 mg SLOW IVP Q4H PRN PRN Reason: SBP Greater Than 170 Last Admin: 03/18/18 17:54 Dose: 10 mg Sodium Chloride (Normal Saline 0.9%) 1,000 mls @ 75 mls/hr IV .[id number] [facility] Last Admin: 03/19/18 13:08 Dose: 1,000 mls Levetiracetam 500 mg/ Device 100 mls @ 200 mls/hr IVPB BID [facility] Last Admin: 03/19/18 08:24 Dose: 100 mls Fentanyl Citrate 2,000 mcg/ (Sodium Chloride) 100 mls @ 0 mls/hr IV INF [facility]; Protocol Stop: 04/16/18 19:33 Fentanyl Citrate (Fentanyl Bolus) 250 mls @ 0 mls/hr IVPB PRN PRN PRN Reason: Breakthrough pain/agitation Stop: 04/16/18 19:33 Potassium Chloride 40 meq/ (Sodium Chloride) 270 mls @ 135 mls/hr IVPB ASDIR PRN PRN Reason: FOR SERUM K+ 2.5 - 3.5 Potassium Chloride 40 meq/ (Device) 100 mls @ 50 mls/hr IVPB ASDIR PRN PRN Reason: FOR SERUM K+ 2.5 - 3.5 Last Admin: 03/18/18 05:42 Dose: 100 mls Magnesium Sulfate 1 gm/ Sodium (Chloride) 102 mls @ 102 mls/hr IV PRN PRN PRN Reason: MAG LEVEL 1.4 - 2.0 Last Admin: 03/18/18 13:00 Dose: 102 mls Magnesium Sulfate 2 gm/ Device 100 mls @ 100 mls/hr IVPB ASDIR PRN PRN Reason: MAGNESIUM < 1.4 Potassium Phosphate 9 mmol/ (Sodium Chloride) 103 mls @ 25.75 mls/hr IVPB ASDIR PRN PRN Reason: Phosphate 1.0-1.8 Potassium Phosphate 12 mmol/ (Sodium Chloride) 254 mls @ 63.5 mls/hr IV ASDIR PRN PRN Reason: Serum phosphate 0.5-0.9 Potassium Phosphate 15 mmol/ (Sodium Chloride) 255 mls @ 63.75 mls/hr IV ASDIR PRN PRN Reason: Serum Phos < 0.5 Vancomycin HCl 2 gm/ Sodium (Chloride) 500 mls @ 250 mls/hr IVPB 0100 [facility] Last Admin: 03/19/18 01:58 Dose: 500 mls Ampicillin Sodium 2 gm/ Sodium (Chloride) 100 mls @ 200 mls/hr IVPB Q4HR [facility] Last Admin: 03/19/18 13:07 Dose: 100 mls Ceftriaxone Sodium 2 gm/ (Sodium Chloride) 100 mls @ 200 mls/hr IVPB Q12HR [facility] Last Admin: 03/19/18 08:23 Dose: 100 mls Lorazepam (Ativan) 2 mg SLOW IVP Q1H PRN PRN Reason: Breakthrough agitation Stop: 04/16/18 19:33 Losartan Potassium (Cozaar) 100 mg PO DAILY [facility] Last Admin: 03/19/18 09:47 Dose: 100 mg Magnesium Oxide (Magnesium Oxide) 400 mg PO BIDPRN PRN PRN Reason: FOR SERUM MAG 1.4 - 2.0 Magnesium Oxide (Magnesium Oxide) 800 mg PO PRN PRN PRN Reason: FOR SERUM MAG < 1.4 Miscellaneous Medication (Pharmacy To Dose) 1 each IVPB PRN PRN PRN Reason: . Miscellaneous Medication (Phos-Nak) 1 pkt PO TIDPRN PRN PRN Reason: FOR PHOS LEVEL 1.0 - 1.8 Miscellaneous Medication (Phos-Nak) 2 pkt PO TIDPRN PRN PRN Reason: FOR PHOS LEVEL 0.5 - 1.0 Morphine Sulfate (Morphine Sulfate) 2 mg SLOW IVP Q1H PRN PRN Reason: BREAKTHROUGH PAIN/AGITATION Stop: 04/16/18 19:33 Discontinue Previous Narcotic Pain Medications And Benzodiazepines 1 each FS .ONE [facility] Stop: 04/16/18 19:33 Ccu Electrolyte (Replacement Protocol) 0 each FS PRN PRN PRN Reason: FOR ELECTROLYTE REPLACEMENT Ondansetron HCl (Zofran) 4 mg IVP Q6H PRN PRN Reason: Nausea/Vomiting Pantoprazole Sodium (Protonix) 40 mg IVP DAILY [facility] Last Admin: 03/19/18 09:46 Dose: Not Given Potassium Chloride (K-Dur) 40 meq PO ASDIR PRN PRN Reason: FOR SERUM K+ 2.5 - 3.5 Potassium Chloride (Klor-Con) 40 meq PER TUBE ASDIR PRN PRN Reason: FOR SERUM K+ 2.5-3.5 Propofol (Diprivan) 1,000 mg IV INF PRN; Protocol PRN Reason: TO ACHIEVE GOAL RASS Stop: 04/16/18 19:33 Last Admin: 03/19/18 08:29 Dose: 1,000 mg Propofol (Diprivan Bolus) 20 mg IV Q5MIN PRN PRN Reason: BREAKTHROUGH AGITATION Stop: 04/16/18 19:33 Sodium Chloride (Flush - Normal Saline) 10 ml IVF Q12HR [facility] Last Admin: 03/19/18 08:24 Dose: 10 ml Sodium Chloride (Flush - Normal Saline) 10 ml IVF PRN PRN PRN Reason: Saline Flush
--- NOTE | 2018-03-19 21:26 | PRG ---
DATE OF SERVICE: 03/19/2018 SUBJECTIVE: Ms. Black remains intubated. She is sedated at this time. PHYSICAL EXAMINATION: VITAL SIGNS: T-max 98-99.3, BP 140/80, pulse 105, respirations 16, O2 sat 100%. HEENT: Pupils are. Oral tracheal intubation. Symmetric air entry. HEART: S1, S2, regular rate. ABDOMEN: Soft, not distended. LABORATORY DATA: White cell count 19.4, hemoglobin 10.3, platelets 189 with 92 % neutrophils. Sodium 139, creatinine 0.8. Microbiology with alpha hemolytic strep from one set of blood cultures, urine culture with gram negative rods. The other set of blood cultures no growth at 48 hours and spinal fluid aspirate culture no organisms seen, no growth at 24 hours. ASSESSMENT AND DISCUSSION: Obesity with hypertension, seizure activity, change in mental status with fever and abnormal CSF. The patient has Streptococcus species and in the blood cultures. The organism was identified as an alpha hemolytic strep. Although alpha hemolytic Streptococci can be associated with meningitis, certainly or not the most common organisms in this presentation. The possibility of contamination of the sample needs to be considered. As soon as she is stable, I would advise an MRI of the brain with contrast to see if she has a parameningeal focus of infection that has not yet been disclosed. TREVOR
[2018-03-20 00:11] LABS: Vancomycin, Trough 9.2 ug/mL
[2018-03-20] MEDS: Dexamethasone 4 mg/ml Vial SLOW IVP SCH ×4 (00:49→18:00)
[2018-03-20] MEDS: Ampicillin 2 GM in Sodium Chloride 0.9% 100 ML IVPB SCH ×6 (00:49→20:29)
[2018-03-20] MEDS: Propofol 1,000 MG/100 ML VIAL IV PRN ×7 (00:49→20:30)
[2018-03-20] MEDS: Sodium Chloride 0.9% 1,000 ML IV SCH ×2 (01:02→16:59)
[2018-03-20 04:27] LABS: #Lymphocytes 0.8 thou/uL (1.20-3.40); #Monocytes 0.5 thou/uL (0.11-0.59); #Neutrophils 12.5 thou/uL (1.40-6.50); %Basophils 0.1 % (0.0-1.0); %Eosinophils 0.1 % (0.0-10.0); %Lymphocytes 5.9 % (21.0-51.0); %Monocytes 3.6 % (0.0-10.0); %Neutrophils 90.3 % (42.0-75.0); Hemoglobin 9.9 g/dL (12.0-16.0); Mean Corpuscular HGB CONC 30.6 g/dL (32.0-36.0); Mean Corpuscular Hemoglobin 26.5 pg (27.0-31.0); Mean Corpuscular Volume 86.6 fL (78.0-98.0); Mean Platelet Volume 7.6 fL (7.4-10.4); Platelet Count 215 thou/uL (130-400); RBC Distribution Width 13.8 % (11.5-14.5); Red Blood Cell (RBC) Count 3.75 mill/uL (4.20-5.40); White Blood Cell (WBC) Count 13.8 thou/uL (4.8-10.8)
[2018-03-20 04:52] LABS: Anion Gap 12 mmol/L (10-20); BUN (Urea Nitrogen) 14 mg/dL (9.8-20.1); Calc. Creatinine Clearance 129 mL/min (70-130); Calcium 8.5 mg/dL (7.8-10.44); Carbon Dioxide 22 mmol/L (23-31); Chloride 110 mmol/L (98-107); Estimated GFR-MDRD 89; Glucose 141 mg/dL (83-110); Potassium 3.4 mmol/L (3.5-5.1); Sodium 141 mmol/L (136-145)
[2018-03-20 07:08] LABS: Actual Bicarbonate (HCO3a) 19.7 mEq/L (22-28); CO2 Tension 31.5 mmHg (35.0-45.0); Calcium, Ionized 1.14 mmol/L (1.12-1.30); Carboxyhemoglobin (COHb) 0.6 gm% (0.0-3.0); Hemoglobin (Hb) 10.9 g/dL (12.0-16.0); O2 Tension (PaO2) 91.8 mmHg (> 70.0); Potassium - ABG Lab 3.39 mmol/L (3.70-5.30); pH, Arterial 7.42 (7.35-7.45)
[2018-03-20 07:35] LABS: ALV-art Gradient 154.025 (0-20); Puncture Site L.R.
[2018-03-20] MEDS: cefTRIAXone\\ROCEPHIN 2 GM in Sodium Chloride 0.9% 100 ML IVPB SCH ×2 (08:55→20:30)
[2018-03-20] MEDS: Pantoprazole 40 MG VIAL IVP SCH (08:55)
[2018-03-20] MEDS: Carvedilol 25 MG TAB PO SCH ×2 (08:56→20:29)
--- NOTE | 2018-03-20 09:05 | RAD ---
CHEST ONE VIEW: Indication: History of intubation. Comparison: 03-18-18 FINDINGS: Left basilar opacity persists. There is worsening right midlung and right lower lobe opacity. There i s worsening pulmonary vascular congestion. There are small bilateral pleural effusions which are also worse. Patient remains intubated with a gastric catheter and right subclavian central venous cathete r in place. No pneumothorax is evident. IMPRESSION: Cardiomegaly persists. There is worsening pulmonary vascular congestion and worsening basilar opacit ies, particularly on the right, may reflect airspace edema and CHF. Aspiration or pneumonia cannot be entirely excluded. Recommend continued radiographic follow up. POS: TPC
[2018-03-20] MEDS: Losartan 25 MG TAB PO SCH (09:21)
[2018-03-20] MEDS: Vancomycin HCl 1.5 GM in Sodium Chloride 0.9% 250 ML 300 ML IVPB SCH ×2 (09:21→21:28)
[2018-03-20] MEDS ORDERED: Furosemide 40 MG/4 ML VIAL SLOW IVP SCH (09:30)
--- NOTE | 2018-03-20 10:16 | PRG ---
DATE OF SERVICE: 03/19/2018 Yamile Black is more alert. She is looking around the room. She did weakly follow commands with both upper extremities. PHYSICAL EXAMINATION: VITAL SIGNS: Heart rate 70, blood pressure 159/95, respiratory rates 11, oximetry is 99. HEENT: Pupils react. Sclerae is anicteric. NECK: Supple, surprisingly. LUNGS: Clear. HEART: Regular rhythm. ABDOMEN: Soft and nontender. EXTREMITIES: Without asymmetry or edema. LABORATORY DATA: White count 19.4, hemoglobin 10.3, platelets 189. She had 23 % bands yesterday. No manual differential was done today. Sodium 139, potassium 3.6, chloride 108, bicarbonate 24, BUN 4, creatinine 0.8, pH 7.38, CO2 36, pO2 135. Streptococcus is growing out of the blood culture. No organisms were seen on spinal fluid Gram stain. IMPRESSION: Bacterial meningitis, likely Streptococcus. PLAN: Plan to keep her in the intubated until her neurological status stabilizes. An EEG needs to be done at some point. Critical care time is 35 minutes. [facility]
[2018-03-20] MEDS: Potassium Chloride 20 MEQ TAB PO PRN (11:18)
--- NOTE | 2018-03-20 11:51 | PQF ---
CJ COTO RICHA MD [id number] CLINICAL DOCUMENTATION IMPROVEMENT CLARIFICATION FORM: ICD-10 Updated PLEASE DO AN ADDENDUM TO THE PROGRESS NOTE WITH ANY DOCUMENTATION UPDATES OR ADDITIONS AND CARRY THROUGH TO DC SUMMARY. THANK YOU. DATE: 03-20-18 ATTN: DR. MILLER Please exercise your independent, professional judgment in responding to the clarification form. Clinical indicators are provided on the bottom of this form for your review Please check appropriate box(s): [ ] Encephalopathy: Type: [ X ] Acute [ ] Subacute [ ] Chronic Etiology: [ ] Hypertensive [ ] Metabolic [ ] Septic [ X] Unspecified [ ] Other (please specify) [ ] Status Epilepticus w/ postictal state [ ] Other diagnosis [ X] Unable to determine For continuity of documentation, please document condition throughout progress notes and discharge summary. Thank You. CLINICAL INDICATORS - SIGNS / SYMPTOMS / LABS WBC LACTIC ACID LABS: 03-17 14.9 3.5 03-18 19.9 03-17 BLD CULTURES 1:2 - STREPTOCOCCUS ED: DX: HYPOXIC RESP FAILURE; PNA; SEIZURE; AMS TEMP 100.5 CRITICORE PULSE 76-94 BP 155/105; 163/128; 178/130; 192/133; 203/116; 159/114; 194/139 UNCONSCIOUS; UNRESPONSIVE; DIAPHORETIC 03-17 H&P: SEPSIS ACUTE ENCEPHALOPATHY - FOUND UNRESPONSIVE - PROBABLY D/T PREVIOUS SEIZURES AND POSTICTAL STATE R/O NETWORKING SPECIALIST INFECTION HYPERGLYCEMIA - NO HX OF DM HYPERTENSIVE URGENCY 03-19 (ANGELA): SEIZURES; AMS; ACUTE BACTERIAL MENINGITIS RISK FACTORS 03-17 H&P: SEIZURES 03-19 (ANGELA): SEIZURES; AMS; ACUTE BACTERIAL MENINGITIS TREATMENTS: 03-[address] 03-18 LUMBAR PUNCTURE MAR: AMPICILLIN 03-20 ROCEPHIN 03-19 KEPPRA 03-20 VANCOMYCIN 03-20 THANK YOU, LUCI (This form is maintained as a part of the permanent medical record) 2014 [email or web address]. All Rights Reserved Luci Lozano RN, BS [email or web address]
[2018-03-20 13:17] LABS: West Nile Virus IgG Ab Negative (Negative); West Nile Virus IgM Ab Negative (Negative)
[2018-03-20 13:17] LABS: West Nile Virus IgG Ab - CSF Equivocal (Negative); West Nile Virus IgM Ab - CSF Negative (Negative)
--- NOTE | 2018-03-20 14:44 | EEG ---
Referring Physician: Marietta BERGERON EEG # [id number] TEST TYPE: ROUTINE PORTABLE INPATIENT REPORT: AN EEG USING THE INTERNATIONAL TEN-TWENTY SYSTEM OF ELECTRODE PLACEMENT WAS PERFORMED. The background activity is predominately a 5-6 hertz Theta frequency. There is some intermixed Alpha activity present. No sleep activity was noted. No epileptiform features were present. Photic stimulation did not alter the background. There are some EMG artifact intermittently. IMPRESSION: THIS IS AN ABNORMAL STUDY FOR THE FINDINGS OF SOME DIFFUSE SLOWING CONSISTENT WITH A DIFFUSE ENCEPHALOPATHIC PROCESS. NO EPILEPTIFORM FEATURES ARE PRESENT. Track Inspector: [employer] Health Information Technician: EEG.MSST. LOUIS CHILDREN'S HOSPITALAkilah
--- NOTE | 2018-03-20 14:49 | PDOC.PN ---
- Subjective Encounter Start Date: 03/20/18 Encounter Start Time: 14:47 Subjective: remains intubated and sedated.no overnight events - Objective Resuscitation Status: Resuscitation Status FULL:Full Resuscitation MAR Reviewed: Yes Vital Signs & Weight: Vital Signs (12 hours) Temp Pulse Resp BP Pulse Ox 03/20/18 14:29 71 143/101 H 03/20/18 14:28 71 12 98 03/20/18 12:00 12 03/20/18 10:28 69 145/82 H 03/20/18 10:27 70 12 98 03/20/18 10:00 14 03/20/18 09:00 99.2 F 03/20/18 08:00 21 H 98 03/20/18 06:26 75 150/85 H 03/20/18 06:24 76 22 H 98 03/20/18 06:00 16 03/20/18 04:00 17 03/20/18 03:00 98.1 F Weight Admit Weight 300 lb Weight 300 lb 11.368 oz Most Recent Monitor Data Heart Rate from ECG 70 NIBP 154/91 NIBP BP-Mean 112 Respiration from ECG 20 SpO2 97 I&O: 03/19/18 03/20/18 03/21/18 06:59 06:59 06:59 Intake Total 2933 3497 Output Total 1326 1325 1025 Balance 1607 2172 -1025 Result Diagrams: 03/20/18 03:50 03/20/18 03:50 Additional Labs: Microbiology 03/17/18 18:21 Nasal swab Influenza Types A,B Direct EIA - Final 03/18/18 10:56 Spinal Fluid - Aspirate Body Fluid Culture - Preliminary 03/17/18 17:30 Venous blood - Left Hand Blood Culture - Preliminary NO GROWTH AT 48 HOURS 03/17/18 17:21 Venous blood - Right Arm Blood Culture - Preliminary Alpha-Hemolytic Streptococcus 03/17/18 17:16 Urine jefferson catheter Urine Culture - Preliminary Klebsiella pneumoniae ssp pneu Laboratory Tests 03/17/18 03/17/18 03/17/18 16:44 16:44 17:21 Troponin I Less than 0.010 B-Natriuretic Peptide 151.9 H TSH 3rd Generation 1.6378 West Nile Virus IgG Ab West Nile Virus IgM Ab 03/18/18 09:42 Troponin I B-Natriuretic Peptide TSH 3rd Generation West Nile Virus IgG Ab Negative West Nile Virus IgM Ab Negative Radiology Reviewed by me: Yes (CXR-pulm vascular congestion) Phys Exam - Physical Examination Constitutional: NAD HEENT: PERRLA, moist MMs, sclera anicteric, oral pharynx no lesions ETT Neck: no nodes, no JVD, supple, full ROM Respiratory: no wheezing, no rales, no rhonchi, clear to auscultation bilateral Cardiovascular: RRR, no significant murmur, no rub Gastrointestinal: soft, non-tender, no distention, positive bowel sounds Musculoskeletal: no edema, pulses present Deviation from normal: sedated Dx/Plan (1) Acute bacterial meningitis Code(s): G00.9 - BACTERIAL MENINGITIS, UNSPECIFIED Status: Acute (2) Acute respiratory failure with hypoxia Code(s): J96.01 - ACUTE RESPIRATORY FAILURE WITH HYPOXIA Status: Acute (3) Seizures Code(s): R56.9 - UNSPECIFIED CONVULSIONS Status: Acute Comment: EEG without epileptiform activity (4) UTI (urinary tract infection) Status: Acute Comment: Klebsiella (5) Sepsis Code(s): A41.9 - SEPSIS, UNSPECIFIED ORGANISM Status: Acute Comment: ? meningitis/encephalitis (6) Altered mental status Code(s): R41.82 - ALTERED MENTAL STATUS, UNSPECIFIED Status: Acute (7) Dyslipidemia Code(s): E78.5 - HYPERLIPIDEMIA, UNSPECIFIED Status: Chronic (8) HTN (hypertension) Code(s): I10 - ESSENTIAL (PRIMARY) HYPERTENSION Status: Chronic (9) Morbid obesity with BMI of 40.0-44.9, adult Code(s): E66.01 - MORBID (SEVERE) OBESITY DUE TO EXCESS CALORIES; Z68.41 - BODY MASS INDEX (BMI) 40.0-44.9, ADULT Status: Chronic Comment: Suspected Grp A Strept as positive in blood - Plan jefferson catheter, continue antibiotics, DVT proph w/SCDs cont empiric ABx. follow final Cx. CSF Cx negative so far. -: West Nile serology negative. HSV pending but bacterial picture -: IV keppra BID. neuro recs pending -: Vent management per PCCM -: give 1 dose lasix for Pulmonary vascular congestion * .am labs Review of Systems - Review of Systems Other: can not be obtained due to intubated and sedated state - Medications/Allergies Allergies/Adverse Reactions: Allergies Allergy/AdvReac Type Severity Reaction Status Date / Time NSAIDS (Non-Steroidal Allergy Verified 10/30/16 15:52 Anti-Inflamma aspirin AdvReac Verified 10/30/16 15:52 Medications: Current Medications Albuterol/Ipratropium (Duoneb) 3 ml NEB [id number] [facility] Last Admin: 03/20/18 14:28 Dose: 3 ml Carvedilol (Coreg) 25 mg PO BID [facility] Last Admin: 03/20/18 08:56 Dose: 25 mg Dexamethasone (Decadron) 4 mg SLOW IVP Q6HR [facility] Last Admin: 03/20/18 12:59 Dose: 4 mg Hydralazine HCl (Apresoline) 10 mg SLOW IVP Q4H PRN PRN Reason: SBP Greater Than 170 Last Admin: 03/18/18 17:54 Dose: 10 mg Sodium Chloride (Normal Saline 0.9%) 1,000 mls @ 75 mls/hr IV .[id number] [facility] Last Admin: 03/20/18 01:02 Dose: 1,000 mls Levetiracetam 500 mg/ Device 100 mls @ 200 mls/hr IVPB BID [facility] Last Admin: 03/20/18 08:55 Dose: 100 mls Fentanyl Citrate 2,000 mcg/ (Sodium Chloride) 100 mls @ 0 mls/hr IV INF [facility]; Protocol Stop: 04/16/18 19:33 Fentanyl Citrate (Fentanyl Bolus) 250 mls @ 0 mls/hr IVPB PRN PRN PRN Reason: Breakthrough pain/agitation Stop: 04/16/18 19:33 Potassium Chloride 40 meq/ (Sodium Chloride) 270 mls @ 135 mls/hr IVPB ASDIR PRN PRN Reason: FOR SERUM K+ 2.5 - 3.5 Potassium Chloride 40 meq/ (Device) 100 mls @ 50 mls/hr IVPB ASDIR PRN PRN Reason: FOR SERUM K+ 2.5 - 3.5 Last Admin: 03/18/18 05:42 Dose: 100 mls Magnesium Sulfate 1 gm/ Sodium (Chloride) 102 mls @ 102 mls/hr IV PRN PRN PRN Reason: MAG LEVEL 1.4 - 2.0 Last Admin: 03/18/18 13:00 Dose: 102 mls Magnesium Sulfate 2 gm/ Device 100 mls @ 100 mls/hr IVPB ASDIR PRN PRN Reason: MAGNESIUM < 1.4 Potassium Phosphate 9 mmol/ (Sodium Chloride) 103 mls @ 25.75 mls/hr IVPB ASDIR PRN PRN Reason: Phosphate 1.0-1.8 Potassium Phosphate 12 mmol/ (Sodium Chloride) 254 mls @ 63.5 mls/hr IV ASDIR PRN PRN Reason: Serum phosphate 0.5-0.9 Potassium Phosphate 15 mmol/ (Sodium Chloride) 255 mls @ 63.75 mls/hr IV ASDIR PRN PRN Reason: Serum Phos < 0.5 Ampicillin Sodium 2 gm/ Sodium (Chloride) 100 mls @ 200 mls/hr IVPB Q4HR [facility] Last Admin: 03/20/18 12:59 Dose: 100 mls Ceftriaxone Sodium 2 gm/ (Sodium Chloride) 100 mls @ 200 mls/hr IVPB Q12HR [facility] Last Admin: 03/20/18 08:55 Dose: 100 mls Vancomycin HCl 1.5 gm/ Sodium (Chloride) 300 mls @ 200 mls/hr IVPB 1000,2200 [facility] Last Admin: 03/20/18 09:21 Dose: 300 mls Lorazepam (Ativan) 2 mg SLOW IVP Q1H PRN PRN Reason: Breakthrough agitation Stop: 04/16/18 19:33 Losartan Potassium (Cozaar) 100 mg PO DAILY [facility] Last Admin: 03/20/18 09:21 Dose: 100 mg Magnesium Oxide (Magnesium Oxide) 400 mg PO BIDPRN PRN PRN Reason: FOR SERUM MAG 1.4 - 2.0 Magnesium Oxide (Magnesium Oxide) 800 mg PO PRN PRN PRN Reason: FOR SERUM MAG < 1.4 Miscellaneous Medication (Pharmacy To Dose) 1 each IVPB PRN PRN PRN Reason: . Miscellaneous Medication (Phos-Nak) 1 pkt PO TIDPRN PRN PRN Reason: FOR PHOS LEVEL 1.0 - 1.8 Miscellaneous Medication (Phos-Nak) 2 pkt PO TIDPRN PRN PRN Reason: FOR PHOS LEVEL 0.5 - 1.0 Morphine Sulfate (Morphine Sulfate) 2 mg SLOW IVP Q1H PRN PRN Reason: BREAKTHROUGH PAIN/AGITATION Stop: 04/16/18 19:33 Discontinue Previous Narcotic Pain Medications And Benzodiazepines 1 each FS .ONE [facility] Stop: 04/16/18 19:33 Ccu Electrolyte (Replacement Protocol) 0 each FS PRN PRN PRN Reason: FOR ELECTROLYTE REPLACEMENT Ondansetron HCl (Zofran) 4 mg IVP Q6H PRN PRN Reason: Nausea/Vomiting Pantoprazole Sodium (Protonix) 40 mg IVP DAILY [facility] Last Admin: 03/20/18 08:55 Dose: 40 mg Potassium Chloride (K-Dur) 40 meq PO ASDIR PRN PRN Reason: FOR SERUM K+ 2.5 - 3.5 Last Admin: 03/20/18 11:18 Dose: 40 meq Potassium Chloride (Klor-Con) 40 meq PER TUBE ASDIR PRN PRN Reason: FOR SERUM K+ 2.5-3.5 Propofol (Diprivan) 1,000 mg IV INF PRN; Protocol PRN Reason: TO ACHIEVE GOAL RASS Stop: 04/16/18 19:33 Last Admin: 03/20/18 08:56 Dose: 1,000 mg Propofol (Diprivan Bolus) 20 mg IV Q5MIN PRN PRN Reason: BREAKTHROUGH AGITATION Stop: 04/16/18 19:33 Sodium Chloride (Flush - Normal Saline) 10 ml IVF Q12HR [facility] Last Admin: 03/20/18 08:56 Dose: 10 ml Sodium Chloride (Flush - Normal Saline) 10 ml IVF PRN PRN PRN Reason: Saline Flush
--- NOTE | 2018-03-20 16:27 | PRG ---
DATE OF SERVICE: 03/20/2018 SUBJECTIVE: Yamile Black remains intubated. We would try to decrease her ventilatory support, decre ase her sedation. OBJECTIVE: VITAL SIGNS: Heart rate is in the 70s, blood pressure this afternoon is 143/101, was 145/82 earlier. LUNGS: Clear. CARDIOVASCULAR: Regular rhythm. ABDOMEN: Soft and nontender. EXTREMITIES: Without clubbing, cyanosis, or edema. LABORATORY DATA: White count 13.8, hemoglobin 9.9, platelets 215. Sodium 141, potassium 3.4, chlori de 110, bicarbonate 22, BUN 14, creatinine 0.76. A pH , CO2 of 31, pO2 of 91. IMPRESSION: 1. Meningitis, likely Streptococcal: 2. Respiratory failure secondary to meningitis. 3. Seizures with meningitis on admission. EEG showed diffuse slowing, but no epileptiform discharge s. We will continue slow weaning from mechanical ventilation towards her mental status and support, secr etion clearance. Critical care time was 30 minutes.
--- NOTE | 2018-03-20 18:29 | PRG ---
DATE OF SERVICE: 03/20/2018 SUBJECTIVE: Ms. Black is still in the ICU intubated. She is sedated. According to the nurse, she h ad a sedation interruption and she was able to open her eyes and did establish eye contact briefly. She is now back sedated. OBJECTIVE: VITAL SIGNS: Temperature max 99.2. HEENT: Pupils are miotic. Oral tracheal intubation. LUNGS: Symmetric clear breath sounds. HEART: S1, S2, regular rate. ABDOMEN: Soft, not distended. LABORATORY DATA: The white cell count is down to 13.8, hemoglobin 9.9, platelets 215 with 90% neutro phils. Sodium 141, creatinine 0.76. West Nile IgM antibody was negative. Microbiology with alpha h emolytic strep, yet to be fully identified, susceptibility tested. Spinal fluid cultures thus far no growth at 48 hours. She had an electrophysiology procedure done today and it showed diffuse slowing , but no epileptiform features. ASSESSMENT AND DISCUSSION: Obesity with hypertension, seizure activity with change in mental status with fever and abnormal cerebrospinal fluid indicative of meningitis with decreased glucose. Alpha h emolytic strep bacteremia could represent again either true etiology for the patient's syndrome or co ntaminant of the specimen of blood submitted. The nature of the identification of the organism will be monet in the interpretation. MRI will be ordered with contrast to see if she has a parameningeal in flammatory process.
[2018-03-20 19:11] LABS: HSV 2 - DNA Negative (Negative)
--- NOTE | 2018-03-20 23:43 | PRG ---
DATE OF SERVICE: 03/20/2018 CONSULTING PHYSICIAN: Hospitalist Service. IMPRESSION: This woman appears to have ongoing [employer] infection with evidence of Klebsiella grown from both blood and urine suggesting sepsis as well. She is currently on sedation and ventilatory support after presenting with alteration in mental status and respiratory failure. Dr. Barba has been consu lted. An MRI of the brain is pending. Her EEG showed some diffuse slowing, but no seizure activity. She is currently on Keppra 1500 mg. She has not had any witnessed seizure activity since admission . SUBJECTIVE: VITAL SIGNS: Vital signs have been fairly stable and only a low-grade temperature is reported. SUMMARY: I agree with current supportive measures. Hopefully, there will not be a significant degre e of brain damage secondary to the infection. We will review the MRI when it is available.
[2018-03-21] MEDS: Dexamethasone 4 mg/ml Vial SLOW IVP SCH ×5 (00:29→23:46)
[2018-03-21] MEDS: Propofol 1,000 MG/100 ML VIAL IV PRN ×5 (00:29→21:09)
[2018-03-21] MEDS: Ampicillin 2 GM in Sodium Chloride 0.9% 100 ML IVPB SCH ×4 (00:29→12:28)
[2018-03-21] MEDS: Lorazepam 2 MG/ML VIAL SLOW IVP PRN ×5 (01:00→23:42)
[2018-03-21] MEDS: Sodium Chloride 0.9% 1,000 ML IV SCH ×2 (05:58→21:09)
[2018-03-21 06:14] LABS: Anion Gap 11 mmol/L (10-20); BUN (Urea Nitrogen) 19 mg/dL (9.8-20.1); Calc. Creatinine Clearance 120 mL/min (70-130); Calcium 8.6 mg/dL (7.8-10.44); Carbon Dioxide 23 mmol/L (23-31); Chloride 112 mmol/L (98-107); Estimated GFR-MDRD 81; Glucose 132 mg/dL (83-110); Potassium 3.4 mmol/L (3.5-5.1); Sodium 143 mmol/L (136-145)
[2018-03-21 07:42] LABS: Actual Bicarbonate (HCO3a) 21.9 mEq/L (22-28); Base Excess (BEa) -1.8 mEq/L (-2.0 to +3.0); CO2 Tension 33.8 mmHg (35.0-45.0); Calcium, Ionized 1.14 mmol/L (1.12-1.30); Carboxyhemoglobin (COHb) 0.3 gm% (0.0-3.0); Hemoglobin (Hb) 10.8 g/dL (12.0-16.0); O2 Tension (PaO2) 108.8 mmHg (> 70.0); Potassium - ABG Lab 3.25 mmol/L (3.70-5.30); pH, Arterial 7.43 (7.35-7.45)
[2018-03-21 08:09] LABS: Puncture Site L.R.
[2018-03-21] MEDS: Pantoprazole 40 MG VIAL IVP SCH (08:58)
[2018-03-21] MEDS: Carvedilol 25 MG TAB PO SCH ×2 (08:59→21:10)
[2018-03-21] MEDS: cefTRIAXone\\ROCEPHIN 2 GM in Sodium Chloride 0.9% 100 ML IVPB SCH ×2 (09:00→21:10)
[2018-03-21 09:04] LABS: Band 20 % (5-11); Hemoglobin 10.1 g/dL (12.0-16.0); Lymphocytes 4 % (21-51); MDiff Complete? YES; Mean Corpuscular HGB CONC 30.9 g/dL (32.0-36.0); Mean Corpuscular Hemoglobin 26.3 pg (27.0-31.0); Mean Corpuscular Volume 85.2 fL (78.0-98.0); Mean Platelet Volume 7.4 fL (7.4-10.4); Monocytes 6 % (0-10); Neutrophil 70 % (42-75); Platelet Count 229 thou/uL (130-400); RBC Distribution Width 13.7 % (11.5-14.5); Red Blood Cell (RBC) Count 3.86 mill/uL (4.20-5.40); White Blood Cell (WBC) Count 13.4 thou/uL (4.8-10.8)
[2018-03-21] MEDS: Losartan 25 MG TAB PO SCH (09:09)
[2018-03-21 09:33] LABS: Vancomycin, Trough 27.6 ug/mL
[2018-03-21] MEDS: Vancomycin HCl 1.5 GM in Sodium Chloride 0.9% 250 ML 300 ML IVPB SCH ×2 (11:10→21:09)
--- NOTE | 2018-03-21 13:59 | PDOC.PN ---
- Subjective Encounter Start Date: 03/21/18 Encounter Start Time: 10:02 Subjective: pt intubated - Objective Resuscitation Status: Resuscitation Status FULL:Full Resuscitation Vital Signs & Weight: Vital Signs (12 hours) Temp Pulse Resp BP Pulse Ox 03/21/18 12:00 98.4 F 19 03/21/18 10:25 66 133/72 03/21/18 10:24 66 12 98 03/21/18 10:00 19 03/21/18 08:00 98.3 F 17 99 03/21/18 07:02 67 168/102 H 03/21/18 07:00 69 19 97 03/21/18 06:00 18 03/21/18 04:00 98.2 F 16 03/21/18 02:53 70 18 96 03/21/18 02:00 18 Weight Admit Weight 300 lb Weight 305 lb 5.443 oz Most Recent Monitor Data Heart Rate from ECG 69 NIBP 141/89 NIBP BP-Mean 106 Respiration from ECG 22 SpO2 96 I&O: 03/20/18 03/21/18 03/22/18 06:59 06:59 06:59 Intake Total 3497 3387 300 Output Total 1325 2020 265 Balance 2172 1367 35 Result Diagrams: 03/21/18 05:50 03/21/18 05:50 Phys Exam - Physical Examination Neck: no nodes, no JVD, supple, full ROM Respiratory: no wheezing, no rales, no rhonchi, wheezing present, clear to auscultation bilateral Cardiovascular: RRR, no significant murmur, no rub, gallop, irregular Gastrointestinal: soft, positive bowel sounds Dx/Plan (1) Acute respiratory failure with hypoxia Code(s): J96.01 - ACUTE RESPIRATORY FAILURE WITH HYPOXIA Status: Acute (2) Acute bacterial meningitis Code(s): G00.9 - BACTERIAL MENINGITIS, UNSPECIFIED Status: Acute (3) Bacteremia Code(s): R78.81 - BACTEREMIA Status: Acute - Plan vent managment per pulm -: will continue abx for now -: will replace electrolytes * . Review of Systems - Review of Systems Other: unable to perform - Medications/Allergies Allergies/Adverse Reactions: Allergies Allergy/AdvReac Type Severity Reaction Status Date / Time NSAIDS (Non-Steroidal Allergy Verified 10/30/16 15:52 Anti-Inflamma aspirin AdvReac Verified 10/30/16 15:52 Medications: Current Medications Albuterol/Ipratropium (Duoneb) 3 ml NEB [id number] [facility] Last Admin: 03/21/18 10:24 Dose: 3 ml Carvedilol (Coreg) 25 mg PO BID [facility] Last Admin: 03/21/18 08:59 Dose: 25 mg Dexamethasone (Decadron) 4 mg SLOW IVP Q6HR [facility] Last Admin: 03/21/18 12:01 Dose: 4 mg Hydralazine HCl (Apresoline) 10 mg SLOW IVP Q4H PRN PRN Reason: SBP Greater Than 170 Last Admin: 03/18/18 17:54 Dose: 10 mg Sodium Chloride (Normal Saline 0.9%) 1,000 mls @ 75 mls/hr IV .[id number] [facility] Last Admin: 03/21/18 05:58 Dose: 1,000 mls Levetiracetam 500 mg/ Device 100 mls @ 200 mls/hr IVPB BID [facility] Last Admin: 03/21/18 08:59 Dose: 100 mls Fentanyl Citrate 2,000 mcg/ (Sodium Chloride) 100 mls @ 0 mls/hr IV INF [facility]; Protocol Stop: 04/16/18 19:33 Fentanyl Citrate (Fentanyl Bolus) 250 mls @ 0 mls/hr IVPB PRN PRN PRN Reason: Breakthrough pain/agitation Stop: 04/16/18 19:33 Potassium Chloride 40 meq/ (Sodium Chloride) 270 mls @ 135 mls/hr IVPB ASDIR PRN PRN Reason: FOR SERUM K+ 2.5 - 3.5 Potassium Chloride 40 meq/ (Device) 100 mls @ 50 mls/hr IVPB ASDIR PRN PRN Reason: FOR SERUM K+ 2.5 - 3.5 Last Admin: 03/18/18 05:42 Dose: 100 mls Magnesium Sulfate 1 gm/ Sodium (Chloride) 102 mls @ 102 mls/hr IV PRN PRN PRN Reason: MAG LEVEL 1.4 - 2.0 Last Admin: 03/18/18 13:00 Dose: 102 mls Magnesium Sulfate 2 gm/ Device 100 mls @ 100 mls/hr IVPB ASDIR PRN PRN Reason: MAGNESIUM < 1.4 Potassium Phosphate 9 mmol/ (Sodium Chloride) 103 mls @ 25.75 mls/hr IVPB ASDIR PRN PRN Reason: Phosphate 1.0-1.8 Potassium Phosphate 12 mmol/ (Sodium Chloride) 254 mls @ 63.5 mls/hr IV ASDIR PRN PRN Reason: Serum phosphate 0.5-0.9 Potassium Phosphate 15 mmol/ (Sodium Chloride) 255 mls @ 63.75 mls/hr IV ASDIR PRN PRN Reason: Serum Phos < 0.5 Ceftriaxone Sodium 2 gm/ (Sodium Chloride) 100 mls @ 200 mls/hr IVPB Q12HR [facility] Last Admin: 03/21/18 09:00 Dose: 100 mls Vancomycin HCl 1.5 gm/ Sodium (Chloride) 300 mls @ 200 mls/hr IVPB 1000,2200 [facility] Last Admin: 03/21/18 11:10 Dose: 300 mls Lorazepam (Ativan) 2 mg SLOW IVP Q1H PRN PRN Reason: Breakthrough agitation Stop: 04/16/18 19:33 Last Admin: 03/21/18 11:49 Dose: 2 mg Losartan Potassium (Cozaar) 100 mg PO DAILY [facility] Last Admin: 03/21/18 09:09 Dose: 100 mg Magnesium Oxide (Magnesium Oxide) 400 mg PO BIDPRN PRN PRN Reason: FOR SERUM MAG 1.4 - 2.0 Magnesium Oxide (Magnesium Oxide) 800 mg PO PRN PRN PRN Reason: FOR SERUM MAG < 1.4 Miscellaneous Medication (Pharmacy To Dose) 1 each IVPB PRN PRN PRN Reason: . Miscellaneous Medication (Phos-Nak) 1 pkt PO TIDPRN PRN PRN Reason: FOR PHOS LEVEL 1.0 - 1.8 Miscellaneous Medication (Phos-Nak) 2 pkt PO TIDPRN PRN PRN Reason: FOR PHOS LEVEL 0.5 - 1.0 Morphine Sulfate (Morphine Sulfate) 2 mg SLOW IVP Q1H PRN PRN Reason: BREAKTHROUGH PAIN/AGITATION Stop: 04/16/18 19:33 Discontinue Previous Narcotic Pain Medications And Benzodiazepines 1 each FS .ONE [facility] Stop: 04/16/18 19:33 Ccu Electrolyte (Replacement Protocol) 0 each FS PRN PRN PRN Reason: FOR ELECTROLYTE REPLACEMENT Ondansetron HCl (Zofran) 4 mg IVP Q6H PRN PRN Reason: Nausea/Vomiting Pantoprazole Sodium (Protonix) 40 mg IVP DAILY [facility] Last Admin: 03/21/18 08:58 Dose: 40 mg Potassium Chloride (K-Dur) 40 meq PO ASDIR PRN PRN Reason: FOR SERUM K+ 2.5 - 3.5 Last Admin: 03/20/18 11:18 Dose: 40 meq Potassium Chloride (Klor-Con) 40 meq PER TUBE ASDIR PRN PRN Reason: FOR SERUM K+ 2.5-3.5 Last Admin: 03/21/18 09:06 Dose: 40 meq Propofol (Diprivan) 1,000 mg IV INF PRN; Protocol PRN Reason: TO ACHIEVE GOAL RASS Stop: 04/16/18 19:33 Last Admin: 03/21/18 12:27 Dose: 1,000 mg Propofol (Diprivan Bolus) 20 mg IV Q5MIN PRN PRN Reason: BREAKTHROUGH AGITATION Stop: 04/16/18 19:33 Sodium Chloride (Flush - Normal Saline) 10 ml IVF Q12HR [facility] Last Admin: 03/21/18 09:01 Dose: 10 ml Sodium Chloride (Flush - Normal Saline) 10 ml IVF PRN PRN PRN Reason: Saline Flush
--- NOTE | 2018-03-21 16:40 | MRI ---
PRE AND POSTCONTRAST ENHANCED CT IMAGES BRAIN: 03/21/18 HISTORY: Altered mental status. Meningitis. COMPARISON: Comparison made to previous exam from 10/30/16. FINDINGS/IMPRESSION: Multiplanar and multisequence pre and postcontrast enhanced MRI images of the brain demonstrate diffu se cortical atrophy with deep white matter ischemic changes. No definite evidence of meningeal enhancement seen to suggest definite meningitis. No significant degrees of subarachnoid FLAIR weighted signal abnormality is seen. MRI appearance on t he FLAIR weighted sequence is not significantly changed since the previous exam from October 2016. Correlate with pathology from the patient's lumbar puncture. POS: EMILY
--- NOTE | 2018-03-21 17:09 | PRG ---
DATE OF SERVICE: 03/21/2018 OBJECTIVE: VITAL SIGNS: Ms. Black still intubated, sedated, T-max 98.4, blood pressure 124 /72, pulse 72. Oral tracheal intubation lines are the same. LUNGS: Symmetric clear breath sounds. CARDIOVASCULAR: S1, S2, regular rate. ABDOMEN: Soft. NEUROLOGIC: A few movements seen, does not follow commands in the appendicular structures. LABORATORY DATA: White cell count 13.4, hemoglobin 10, platelets 229, 20% bands. Chemistry with a sodium of 143, creatinine 0.82. HSV and West Nile serology and PCR negative. Cultures from the blood now revealed Streptococcus pneumoniae. CSF cultures are still negative. Brain MRI was completed. We are waiting on the interpretation by radiologist. ASSESSMENT AND DISCUSSION: Obesity, hypertension, seizure activity, change in mental status, fever, abnormal CSF indicative of meningitis with decreased glucose and now has been identified as Streptococcus pneumoniae. This pretty much settles this case as a case of Streptococcus pneumonia and meningitis. Still waiting on the final interpretation of the MRI. Otitis media, paranasal sinusitis are possible. We will discontinue ampicillin. Continue Rocephin and vancomycin until susceptibility studies are reported for the organism and treat the usual 2-3 weeks with Rocephin if susceptible to penicillin and Rocephin. Otherwise, continue with vancomycin for 2-3 weeks. MTDD
--- NOTE | 2018-03-21 18:39 | PRG ---
DATE OF SERVICE: 03/21/2018 SUBJECTIVE: Ms. Black is not alert enough to consider weaning or extubation. OBJECTIVE: VITAL SIGNS: Heart rate 68, blood pressure 124/72, respiratory rates in the teens. LUNGS: Clear. HEART: Regular rhythm. ABDOMEN: Soft. LABORATORY DATA: White count 13.4, hemoglobin 10.1, platelets 229. Sodium 143 , potassium 3.4, chloride 112, bicarbonate 23, BUN 19, creatinine 0.82. PH 7.43 , pCO2 of 33, pO2 of 108. IMPRESSION: Respiratory failure associated with bacterial meningitis. Spinal fluid had grown bacteria. She had been on antibiotics overnight for the lumbar puncture. Blood is growing Strep pneumoniae, sensitive to Rocephin. Urine culture grew out Klebsiella, pansensitive. We will continue IV antibiotics, steroids, and respiratory support. I would not suspect that she would improve rapidly. She had a brain MRI today by Dr. Barba. It showed diffuse cortical atrophy with white matter ischemic changes, but no meningeal enhancement. Again, reviewing her spinal fluid results, there is no doubt that spinal fluid is most consistent with meningeal and bacterial inflammatory process with 26, 100 white cells, 79% neutrophils, a glucose of 30, and a protein of 580. We will continue with critical care management. Critical care time 30 minutes. TREVOR
[2018-03-21] MEDS: hydrALAZINE 20 MG/ML VIAL SLOW IVP PRN (23:43)
[2018-03-22] MEDS: Propofol 1,000 MG/100 ML VIAL IV PRN ×6 (00:18→21:54)
[2018-03-22 05:27] LABS: Anion Gap 11 mmol/L (10-20); BUN (Urea Nitrogen) 21 mg/dL (9.8-20.1); Calc. Creatinine Clearance 135 mL/min (70-130); Calcium 8.6 mg/dL (7.8-10.44); Carbon Dioxide 22 mmol/L (23-31); Chloride 115 mmol/L (98-107); Estimated GFR-MDRD Greater than 90; Glucose 123 mg/dL (83-110); Potassium 3.4 mmol/L (3.5-5.1); Sodium 145 mmol/L (136-145)
[2018-03-22 05:43] LABS: Band 12 % (5-11); Hemoglobin 10.1 g/dL (12.0-16.0); Lymphocytes 14 % (21-51); MDiff Complete? YES; Mean Corpuscular HGB CONC 31.1 g/dL (32.0-36.0); Mean Corpuscular Hemoglobin 26.3 pg (27.0-31.0); Mean Corpuscular Volume 84.7 fL (78.0-98.0); Mean Platelet Volume 7.4 fL (7.4-10.4); Metamyelocyte 2 % (0-0); Monocytes 6 % (0-10); Myelocyte 1 % (0-0); Neutrophil 65 % (42-75); PLT Morphology Comment Appears Adequate; Platelet Count 232 thou/uL (130-400); RBC Distribution Width 13.8 % (11.5-14.5); Red Blood Cell (RBC) Count 3.83 mill/uL (4.20-5.40); White Blood Cell (WBC) Count 9.4 thou/uL (4.8-10.8)
[2018-03-22] MEDS: Dexamethasone 4 mg/ml Vial SLOW IVP SCH ×3 (06:39→17:36)
[2018-03-22 06:47] LABS: Actual Bicarbonate (HCO3a) 22.1 mEq/L (22-28); Base Excess (BEa) -0.1 mEq/L (-2.0 to +3.0); CO2 Tension 28.2 mmHg (35.0-45.0); Calcium, Ionized 1.16 mmol/L (1.12-1.30); Carboxyhemoglobin (COHb) 0.7 gm% (0.0-3.0); O2 Tension (PaO2) 67.3 mmHg (> 70.0); Potassium - ABG Lab 3.55 mmol/L (3.70-5.30); pH, Arterial 7.51 (7.35-7.45)
[2018-03-22 06:48] LABS: Puncture Site RRA
[2018-03-22] MEDS: cefTRIAXone\\ROCEPHIN 2 GM in Sodium Chloride 0.9% 100 ML IVPB SCH ×2 (08:12→21:54)
[2018-03-22] MEDS: Losartan 25 MG TAB PO SCH (08:14)
[2018-03-22] MEDS: Carvedilol 25 MG TAB PO SCH ×2 (08:14→21:55)
[2018-03-22] MEDS: Pantoprazole 40 MG VIAL IVP SCH (08:14)
[2018-03-22] MEDS: Sodium Chloride 0.9% 1,000 ML IV SCH ×2 (08:15→21:57)
[2018-03-22 09:42] LABS: Vancomycin, Trough 31.1 ug/mL
[2018-03-22] MEDS: hydrALAZINE 20 MG/ML VIAL SLOW IVP PRN (09:55)
[2018-03-22] MEDS: Vancomycin HCl 1.5 GM in Sodium Chloride 0.9% 250 ML 300 ML IVPB SCH (10:50)
[2018-03-22] MEDS: Vancomycin HCl 1.25 GM in Sodium Chloride 0.9% 250 ML 250 ML IVPB SCH (12:27)
--- NOTE | 2018-03-22 16:26 | PDOC.PN ---
- Subjective Encounter Start Date: 03/22/18 Encounter Start Time: 15:30 Intubated. No new issues. - Objective Resuscitation Status: Resuscitation Status FULL:Full Resuscitation Vital Signs & Weight: Vital Signs (12 hours) Temp Pulse Resp BP Pulse Ox 03/22/18 14:19 81 127/79 03/22/18 14:00 24 H 03/22/18 12:00 98.3 F 17 03/22/18 10:35 89 107/66 03/22/18 10:00 23 H 03/22/18 09:55 81 188/98 H 03/22/18 09:16 78 03/22/18 08:00 98.9 F 22 H 96 03/22/18 07:30 73 147/89 H 03/22/18 06:00 23 H Weight Admit Weight 300 lb Weight 312 lb 2.793 oz Most Recent Monitor Data Heart Rate from ECG 85 NIBP 128/79 NIBP BP-Mean 95 Respiration from ECG 24 SpO2 96 I&O: 03/21/18 03/22/18 03/23/18 06:59 06:59 06:59 Intake Total 3387 3416 300 Output Total 2019 1260 207 Balance 1367 2156 93 Result Diagrams: 03/22/18 05:08 03/22/18 05:08 Phys Exam - Physical Examination Constitutional: NAD intubated. Respiratory: no wheezing, no rales, no rhonchi, clear to auscultation bilateral Cardiovascular: RRR, no significant murmur, no rub Gastrointestinal: soft, no distention, positive bowel sounds Modest peripheral edema. Dx/Plan (1) Streptococcal bacteremia Code(s): R78.81 - BACTEREMIA; B95.5 - UNSP STREPTOCOCCUS THE CAUSE OF DISEASES CLASSD ELSWHR Status: Acute (2) UTI due to Klebsiella species Code(s): N39.0 - URINARY TRACT INFECTION, SITE NOT SPECIFIED; B96.1 - KLEBSIELLA PNEUMONIAE THE CAUSE OF DISEASES CLASSD ELSWHR Status: Acute (3) Acute bacterial meningitis Code(s): G00.9 - BACTERIAL MENINGITIS, UNSPECIFIED Status: Acute (4) Acute respiratory failure with hypoxia Code(s): J96.01 - ACUTE RESPIRATORY FAILURE WITH HYPOXIA Status: Acute (5) Sepsis Code(s): A41.9 - SEPSIS, UNSPECIFIED ORGANISM Status: Acute Comment: Step bacteremia, Klebsiella UTI, evidence of meningitis on LP. (6) Altered mental status Code(s): R41.82 - ALTERED MENTAL STATUS, UNSPECIFIED Status: Acute (7) Anemia Code(s): D64.9 - ANEMIA, UNSPECIFIED Status: Acute (8) HTN (hypertension) Code(s): I10 - ESSENTIAL (PRIMARY) HYPERTENSION Status: Chronic (9) Morbid obesity with BMI of 40.0-44.9, adult Code(s): E66.01 - MORBID (SEVERE) OBESITY DUE TO EXCESS CALORIES; Z68.41 - BODY MASS INDEX (BMI) 40.0-44.9, ADULT Status: Chronic Comment: Suspected Grp A Strept as positive in blood - Plan * Continuing IV abx and following specifics of culture. Maintaining vent support. ID, Pulmonology following. Discussed with patient's granddaughter. Patient was off sedation this morning and did not have any additional neurological activity except tachypnea. Prognosis still very guarded.
--- NOTE | 2018-03-22 22:47 | PRG ---
DATE OF SERVICE: 03/22/2018 SUBJECTIVE: Ms. Black is still not alert enough to be extubated. OBJECTIVE: VITAL SIGNS: Heart rates in the 80s, respiratory rates in the 20s, blood pressure 118/71 this evening, oximetry is 97. Intake and output is positive 2156. LUNGS: Clear. HEART: Regular rhythm. ABDOMEN: Soft. EXTREMITIES: Without clubbing, cyanosis, or edema. LABORATORY DATA: White count 9.4, hemoglobin 10.1, platelets 232. Sodium 145, potassium 3.4, chloride 115, bicarbonate 22, BUN 21, creatinine 0.74. A pH of 7.51, CO2 of 28, pO2 of 67. IMPRESSION: 1. Meningitis. 2. Respiratory failure. 3. Seizures associated with her meningitis. PLAN: Continue mechanical ventilation, nutritional support, and antimicrobial therapy. We may have to reach a point where we just stopped all sedation since September with meningitis more sensitive to sedative drugs. I do not think she is ready for weaning and extubation. I met with family and answered all their questions. There is no doubt based on the cerebrospinal fluid that she has bacterial meningitis. The fact that the cultures are negative in my opinion or just indicative of the fact that the cultures were drawn significantly after antimicrobial therapy was initiated. Critical care time is 35 minutes. MTDD
[2018-03-23] MEDS: Vancomycin HCl 1.25 GM in Sodium Chloride 0.9% 250 ML 250 ML IVPB SCH (00:26)
[2018-03-23] MEDS: Dexamethasone 4 mg/ml Vial SLOW IVP SCH ×4 (00:27→17:14)
[2018-03-23] MEDS: Propofol 1,000 MG/100 ML VIAL IV PRN ×6 (01:37→22:56)
[2018-03-23 04:58] LABS: Anion Gap 11 mmol/L (10-20); BUN (Urea Nitrogen) 29 mg/dL (9.8-20.1); Calc. Creatinine Clearance 136 mL/min (70-130); Calcium 8.5 mg/dL (7.8-10.44); Carbon Dioxide 21 mmol/L (23-31); Chloride 116 mmol/L (98-107); Estimated GFR-MDRD 90; Glucose 145 mg/dL (83-110); Potassium 3.7 mmol/L (3.5-5.1); Sodium 144 mmol/L (136-145)
[2018-03-23 05:19] LABS: Hemoglobin 9.7 g/dL (12.0-16.0); Hypochromia SLIGHT = 6-15 cells (100X) (0-5/hpf); Lymphocytes 19 % (21-51); MDiff Complete? YES; Mean Corpuscular HGB CONC 30.9 g/dL (32.0-36.0); Mean Corpuscular Hemoglobin 26.2 pg (27.0-31.0); Mean Corpuscular Volume 84.6 fL (78.0-98.0); Mean Platelet Volume 6.9 fL (7.4-10.4); Monocytes 5 % (0-10); Neutrophil 76 % (42-75); Nucleated RBC 1 % (0); PLT Morphology Comment Appears Adequate; Platelet Count 231 thou/uL (130-400); RBC Distribution Width 13.9 % (11.5-14.5); Red Blood Cell (RBC) Count 3.71 mill/uL (4.20-5.40); White Blood Cell (WBC) Count 10.2 thou/uL (4.8-10.8)
[2018-03-23 06:17] LABS: Actual Bicarbonate (HCO3a) 18.7 mEq/L (22-28); Base Excess (BEa) -4.4 mEq/L (-2.0 to +3.0); Calcium, Ionized 1.19 mmol/L (1.12-1.30); Carboxyhemoglobin (COHb) 0.3 gm% (0.0-3.0); Hemoglobin (Hb) 10.3 g/dL (12.0-16.0); Potassium - ABG Lab 3.82 mmol/L (3.70-5.30); pH, Arterial 7.44 (7.35-7.45)
[2018-03-23 06:20] LABS: Puncture Site RBA
[2018-03-23] MEDS: Losartan 25 MG TAB PO SCH (08:01)
[2018-03-23] MEDS: Carvedilol 25 MG TAB PO SCH ×2 (08:01→21:04)
[2018-03-23] MEDS: Pantoprazole 40 MG VIAL IVP SCH (08:01)
[2018-03-23] MEDS: cefTRIAXone\\ROCEPHIN 2 GM in Sodium Chloride 0.9% 100 ML IVPB SCH ×2 (08:05→21:05)
--- NOTE | 2018-03-23 08:34 | RAD ---
PORTABLE AP CHEST XRAY: DATE: 03/23/2018. HISTORY: On ventilator. Followup evaluation. COMPARISON: 03/20/2018. FINDINGS: Right subclavian central venous catheter, nasogastric tube, and endotracheal tubes remain in place an d unchanged in position. Distal-most portion of the endotracheal tube is not well seen on this exam to confirm that the nasogastric tube extends into the upper abdomen. There are pleural and parenchym al opacities bilaterally which may be related to bilateral pleural effusions and associated atelectas is. There is prominence in the aortic arch, but this may be related to patient rotation and accentua tion of the aortic arch and mediastinal structures. There is no other interval change. IMPRESSION: 1. Persistent pleural and parenchymal changes right lung base with interval development of parenchym al opacity in the left mid lung zone and left lung base. Findings are likely related to bilateral pl eural effusions and atelectasis, but parenchymal opacities could be related to pneumonia. Followup t o resolution is recommended. 2. Prominence of the aortic arch, but this is likely related to accentuation secondary to patient ro tation. POS: [facility]
[2018-03-23] MEDS: Sodium Chloride 0.9% 1,000 ML IV SCH (10:20)
[2018-03-23] MEDS ORDERED: Furosemide 40 MG/4 ML VIAL SLOW IVP SCH (11:00)
--- NOTE | 2018-03-23 11:03 | PRG ---
DATE OF SERVICE: 03/23/2018 PHYSICAL EXAMINATION: VITAL SIGNS: Ms. Black vital signs have been stable. Blood pressure 129/74, heart rate 67, respirat ory rate 17. When sedation is held, she coughs fairly continuously. She is not following commands. LUNGS: Clear. HEART: Regular rhythm. ABDOMEN: Abdomen is soft. EXTREMITIES: Without asymmetry. LABORATORY DATA: White count 10.2, hemoglobin 9.7, platelets 231. Sodium 144, potassium 3.7, chlori de 116, bicarbonate 21, BUN 29, creatinine 0.75, pH 7.44, CO2 28, pO2 94. Chest radiograph is starting to show findings suggestive of pulmonary edema. Intake and output is positive 2156. IMPRESSION: 1. Respiratory failure associated with meningitis 2. Volume overload. PLAN: Diuresis. Continue antibiotics. Continue ventilatory and nutritional support. Critical care time was 30 minutes.
[2018-03-23] MEDS: Furosemide 40 MG/4 ML VIAL SLOW IVP SCH (11:58)
--- NOTE | 2018-03-23 13:35 | PRG ---
DATE OF SERVICE: 03/23/2018 Ms. Black is still intubated. According to the nurse, she followed commands today, although she did not establish eye contact. She has had no diarrhea and no seizure activity. PHYSICAL EXAMINATION: VITAL SIGNS: The T-max is 99.8, blood pressure 120/74, pulse 67. HEENT: She has a tonic deviation of the eyes to the right side. She did not follow my commands. Pu pils are equal and reactive. LUNGS: Symmetric coarse breath sounds. CARDIOVASCULAR: S1, S2, regular rate. ABDOMEN: Soft and not distended. EXTREMITIES: She seems to be able to move extremities. LABORATORY DATA: White cell count is down to 10.2, hemoglobin 9.7, platelets 231, 76% neutrophils, 1 % nucleated RBCs. Creatinine 0.75, sodium 144. The Streptococcus pneumoniae is susceptible to cepha losporins. ASSESSMENT AND DISCUSSION: Obesity, hypertension, seizure activity, change in mental status, fever, abnormal CSF indicative of meningitis, normal MRI of the head, at least no evidence of abscess or oth er parameningeal process going on. Streptococcus pneumonia blood culture positive, but negative CSF cultures, probably because antimicro bials were given prior to the spinal fluid test. Streptococcus pneumonia, meningitis. The patient h as received Decadron, although she had received antimicrobials before the Decadron. Most of the effe ct of Decadron is to decrease the sensorineural hearing impairment that can be associated meningitis. The total duration of Rocephin will be 3 weeks. Discontinue vancomycin and hopefully she will be a ble to be extubated soon.
--- NOTE | 2018-03-23 17:35 | PDOC.PN ---
- Subjective Encounter Start Date: 03/23/18 Encounter Start Time: 13:05 Intubated - Objective Resuscitation Status: Resuscitation Status FULL:Full Resuscitation Vital Signs & Weight: Vital Signs (12 hours) Temp Pulse Resp BP Pulse Ox 03/23/18 16:00 22 H 03/23/18 14:25 71 107/65 03/23/18 14:00 22 H 03/23/18 12:00 17 03/23/18 11:00 99.8 F H 03/23/18 10:38 67 129/74 03/23/18 10:00 17 03/23/18 09:10 72 03/23/18 08:00 98.9 F 24 H 98 03/23/18 07:04 66 130/87 03/23/18 06:00 16 Weight Admit Weight 300 lb Weight 317 lb 14.505 oz Most Recent Monitor Data Heart Rate from ECG 80 NIBP 153/81 NIBP BP-Mean 105 Respiration from ECG 21 SpO2 94 I&O: 03/22/18 03/23/18 03/24/18 06:59 06:59 06:59 Intake Total 3416 3959 1889 Output Total 5177 469 7559 Balance 0568 0720 -713 Result Diagrams: 03/23/18 04:30 03/23/18 04:30 Phys Exam - Physical Examination Constitutional: NAD Intubated Respiratory: no wheezing, no rales, no rhonchi, clear to auscultation bilateral Cardiovascular: RRR, no significant murmur Gastrointestinal: soft, non-tender, no distention, positive bowel sounds Musculoskeletal: no edema Dx/Plan (1) Streptococcal bacteremia Code(s): R78.81 - BACTEREMIA; B95.5 - UNSP STREPTOCOCCUS THE CAUSE OF DISEASES CLASSD ELSWHR Status: Acute (2) UTI due to Klebsiella species Code(s): N39.0 - URINARY TRACT INFECTION, SITE NOT SPECIFIED; B96.1 - KLEBSIELLA PNEUMONIAE THE CAUSE OF DISEASES CLASSD ELSWHR Status: Acute (3) Acute bacterial meningitis Code(s): G00.9 - BACTERIAL MENINGITIS, UNSPECIFIED Status: Acute (4) Acute respiratory failure with hypoxia Code(s): J96.01 - ACUTE RESPIRATORY FAILURE WITH HYPOXIA Status: Acute (5) Sepsis Code(s): A41.9 - SEPSIS, UNSPECIFIED ORGANISM Status: Acute Comment: Step bacteremia, Klebsiella UTI, evidence of meningitis on LP. (6) Altered mental status Code(s): R41.82 - ALTERED MENTAL STATUS, UNSPECIFIED Status: Acute (7) Anemia Code(s): D64.9 - ANEMIA, UNSPECIFIED Status: Acute (8) HTN (hypertension) Code(s): I10 - ESSENTIAL (PRIMARY) HYPERTENSION Status: Chronic (9) Morbid obesity with BMI of 40.0-44.9, adult Code(s): E66.01 - MORBID (SEVERE) OBESITY DUE TO EXCESS CALORIES; Z68.41 - BODY MASS INDEX (BMI) 40.0-44.9, ADULT Status: Chronic Comment: Suspected Grp A Strept as positive in blood - Plan * ID, Pulmonology following. Continue Rocephin for three weeks. Continue vent/ nutritional support. Unclear what her residual mental status will be.
[2018-03-24] MEDS: Dexamethasone 4 mg/ml Vial SLOW IVP SCH ×5 (00:04→23:55)
[2018-03-24] MEDS: Propofol 1,000 MG/100 ML VIAL IV PRN ×5 (03:04→23:55)
[2018-03-24 04:21] LABS: Anion Gap 12 mmol/L (10-20); BUN (Urea Nitrogen) 31 mg/dL (9.8-20.1); Calc. Creatinine Clearance 142 mL/min (70-130); Calcium 8.5 mg/dL (7.8-10.44); Carbon Dioxide 22 mmol/L (23-31); Chloride 114 mmol/L (98-107); Estimated GFR-MDRD Greater than 90; Glucose 147 mg/dL (83-110); Potassium 3.6 mmol/L (3.5-5.1); Sodium 144 mmol/L (136-145)
[2018-03-24 07:09] LABS: Band 8 % (5-11); Eosinophils 1 % (0-10); Hemoglobin 9.7 g/dL (12.0-16.0); Lymphocytes 20 % (21-51); MDiff Complete? YES; Mean Corpuscular Hemoglobin 26.4 pg (27.0-31.0); Mean Corpuscular Volume 85.3 fL (78.0-98.0); Mean Platelet Volume 7.1 fL (7.4-10.4); Monocytes 7 % (0-10); Neutrophil 64 % (42-75); Platelet Count 235 thou/uL (130-400); RBC Distribution Width 14.1 % (11.5-14.5); Red Blood Cell (RBC) Count 3.66 mill/uL (4.20-5.40); White Blood Cell (WBC) Count 10.5 thou/uL (4.8-10.8)
[2018-03-24 07:14] LABS: Actual Bicarbonate (HCO3a) 20.5 mEq/L (22-28); Base Excess (BEa) -2.6 mEq/L (-2.0 to +3.0); CO2 Tension 29.3 mmHg (35.0-45.0); Calcium, Ionized 1.17 mmol/L (1.12-1.30); Carboxyhemoglobin (COHb) 0.4 gm% (0.0-3.0); O2 Tension (PaO2) 97.1 mmHg (> 70.0); Potassium - ABG Lab 3.62 mmol/L (3.70-5.30); pH, Arterial 7.46 (7.35-7.45)
--- NOTE | 2018-03-24 07:43 | RAD ---
CHEST 1 VIEW: HISTORY: Dyspnea. Followup. COMPARISON: 03/23/2018. FINDINGS: Cardiac silhouette is magnified and enlarged. Pulmonary vasculature remains engorged with bilateral perihilar and bibasilar infiltrates. Probable small amount of bilateral pleural fluid. Mediastinum is midline. Lines and tubes appear unchanged in position. No evidence of pneumothorax. IMPRESSION: Pulmonary edema and other findings are stable. POS: [facility]
[2018-03-24 07:57] LABS: ALV-art Gradient 151.475 (0-20); Puncture Site RBA
[2018-03-24] MEDS: Carvedilol 25 MG TAB PO SCH ×2 (09:33→20:15)
[2018-03-24] MEDS: Pantoprazole 40 MG VIAL IVP SCH (09:33)
[2018-03-24] MEDS: cefTRIAXone\\ROCEPHIN 2 GM in Sodium Chloride 0.9% 100 ML IVPB SCH ×2 (09:34→20:14)
[2018-03-24] MEDS: Enoxaparin Sodium 40 MG/0.4 ML SYRINGE SC SCH (09:35)
[2018-03-24] MEDS: Furosemide 40 MG/4 ML VIAL SLOW IVP SCH (09:38)
[2018-03-24] MEDS: Losartan 25 MG TAB PO SCH (09:53)
[2018-03-24] MEDS: Lorazepam 2 MG/ML VIAL SLOW IVP PRN ×3 (12:06→22:54)
--- NOTE | 2018-03-24 12:16 | PDOC.PN ---
- Subjective Encounter Start Date: 03/24/18 Encounter Start Time: 09:00 Still intubated. Nursing reports that she has been able to occasionally follow simple commands. - Objective Resuscitation Status: Resuscitation Status FULL:Full Resuscitation Vital Signs & Weight: Vital Signs (12 hours) Temp Pulse Resp BP Pulse Ox 03/24/18 12:04 67 147/80 H 03/24/18 11:59 74 27 H 99 03/24/18 08:00 98.3 F 18 99 03/24/18 06:56 64 159/90 H 03/24/18 06:55 65 20 98 03/24/18 06:00 15 03/24/18 04:00 98.6 F 18 03/24/18 02:29 66 20 100 03/24/18 02:00 16 Weight Admit Weight 300 lb Weight 324 lb 4.8 oz Most Recent Monitor Data Heart Rate from ECG 59 NIBP 133/73 NIBP BP-Mean 93 Respiration from ECG 17 SpO2 98 I&O: 03/23/18 03/24/18 03/25/18 06:59 06:59 06:59 Intake Total 3959 4123 Output Total 687 3100 110 Balance 3272 1023 -110 Result Diagrams: 03/24/18 03:10 03/24/18 03:10 Phys Exam - Physical Examination Constitutional: NAD Intubated Respiratory: no wheezing, no rales, no rhonchi, clear to auscultation bilateral Cardiovascular: RRR, no significant murmur, no rub Gastrointestinal: soft, non-tender, no distention, positive bowel sounds Musculoskeletal: no edema Skin: normal turgor Dx/Plan (1) Streptococcal bacteremia Code(s): R78.81 - BACTEREMIA; B95.5 - UNSP STREPTOCOCCUS THE CAUSE OF DISEASES CLASSD ELSWHR Status: Acute Comment: On Rocephin. ID recommendations. (2) UTI due to Klebsiella species Code(s): N39.0 - URINARY TRACT INFECTION, SITE NOT SPECIFIED; B96.1 - KLEBSIELLA PNEUMONIAE THE CAUSE OF DISEASES CLASSD ELSWHR Status: Acute Comment: Covered by the Rocephin. (3) Acute bacterial meningitis Code(s): G00.9 - BACTERIAL MENINGITIS, UNSPECIFIED Status: Acute Comment: Presumed Strep based upon the bacteremia. Continue Rocephin. (4) Acute respiratory failure with hypoxia Code(s): J96.01 - ACUTE RESPIRATORY FAILURE WITH HYPOXIA Status: Acute Comment: Pulm./CC managing vent. (5) Sepsis Code(s): A41.9 - SEPSIS, UNSPECIFIED ORGANISM Status: Resolved Comment: Step bacteremia, Klebsiella UTI, evidence of meningitis on LP. (6) Altered mental status Code(s): R41.82 - ALTERED MENTAL STATUS, UNSPECIFIED Status: Acute (7) Anemia Code(s): D64.9 - ANEMIA, UNSPECIFIED Status: Acute (8) HTN (hypertension) Code(s): I10 - ESSENTIAL (PRIMARY) HYPERTENSION Status: Chronic (9) Morbid obesity with BMI of 40.0-44.9, adult Code(s): E66.01 - MORBID (SEVERE) OBESITY DUE TO EXCESS CALORIES; Z68.41 - BODY MASS INDEX (BMI) 40.0-44.9, ADULT Status: Chronic Comment: Suspected Grp A Strept as positive in blood - Plan * Continue ventilator support, nutritional support, IV abx. Encouraged that she has some residual cognitive function. Not clear how long the patient was down before being found, but potentially several hours according to family.
--- NOTE | 2018-03-24 13:46 | PRG ---
DATE OF SERVICE: 03/24/2018 Thirty-five minutes critical care time. SUBJECTIVE: She remains intubated on mechanical ventilation. She actually will wake up and nod and shake her head to some questions. She has a persistent upward deviating gaze. PHYSICAL EXAMINATION: VITAL SIGNS: Temperature 98.3, pulse 59, blood pressure 133/73. She is on no vasopressor. She is o n small amount of propofol for sedation. A 24-hour intake was 4123, output 3100. Weight 324 pounds. HEENT: Upward gaze. NECK: No JVD. LUNGS: Coarse rhonchi. CARDIOVASCULAR: S1, S2 regular. ABDOMEN: Soft, nontender. EXTREMITIES: Generalized mild edema throughout. LABORATORY DATA: White blood cell count 10.5, hematocrit 31.2, platelet count 235, pH 7.46, pCO2 of 29, pO2 of 97 on SIMV rate 12, tidal volume 500, PEEP 5, pressure support 10, FiO2 40%. Sodium 144, potassium 3.6, chloride 114, CO2 20, BUN 31, creatinine 0.7, glucose 147. X-RAY FINDINGS: Chest x-ray shows no acute changes. She has bilateral lower lobe infiltrates. ASSESSMENT: 1. Respiratory failure requiring mechanical ventilation. 2. Mild volume overload. 3. Meningitis that is probably secondary to Streptococcus pneumonia, although nothing grew out of th e spinal fluid cultures. PLAN: 1. The patient is not weanable at this time secondary to her mental status. She continues on ceftri axone. We appreciate Dr. Barba input on that. 2. Continue with diuresis. 3. Hopefully, we can make progress towards weaning by early next week. 4. Continue tube feedings.
--- NOTE | 2018-03-24 16:50 | EKG ---
Test Reason : Blood Pressure : / mmHG Vent. Rate : 101 BPM Atrial Rate : 101 BPM P-R Int : 000 ms QRS Dur : 088 ms QT Int : 468 ms P-R-T Axes : 000 030 081 degrees QTc Int : 606 ms Accelerated Junctional rhythm Low voltage QRS Long QTc Confirmed by KANDY MCCONNELL ([id number]), editor publications DELMI KLINE ([id number]) on 03/24/2018 4:49:38 PM Referred By: Confirmed By:KANDY MCCONNELL
[2018-03-25 04:48] LABS: Anion Gap 9 mmol/L (10-20); BUN (Urea Nitrogen) 28 mg/dL (9.8-20.1); Calc. Creatinine Clearance 158 mL/min (70-130); Calcium 8.4 mg/dL (7.8-10.44); Carbon Dioxide 25 mmol/L (23-31); Chloride 112 mmol/L (98-107); Estimated GFR-MDRD Greater than 90; Glucose 123 mg/dL (83-110); Potassium 3.6 mmol/L (3.5-5.1); Sodium 142 mmol/L (136-145)
[2018-03-25 05:44] LABS: Band 11 % (5-11); Hemoglobin 9.8 g/dL (12.0-16.0); Lymphocytes 12 % (21-51); MDiff Complete? YES; Mean Corpuscular Hemoglobin 26.3 pg (27.0-31.0); Mean Platelet Volume 7.2 fL (7.4-10.4); Metamyelocyte 2 % (0-0); Monocytes 4 % (0-10); Myelocyte 3 % (0-0); Neutrophil 67 % (42-75); Nucleated RBC 1 % (0); PLT Morphology Comment Appears Adequate; Platelet Count 240 thou/uL (130-400); RBC Distribution Width 14.1 % (11.5-14.5); RBC Morphology Normal; Reactive Lymphocytes 1 % (0-10); Red Blood Cell (RBC) Count 3.73 mill/uL (4.20-5.40); White Blood Cell (WBC) Count 8.8 thou/uL (4.8-10.8)
[2018-03-25] MEDS: Dexamethasone 4 mg/ml Vial SLOW IVP SCH ×3 (06:27→18:35)
[2018-03-25] MEDS: Propofol 1,000 MG/100 ML VIAL IV PRN ×3 (06:27→16:57)
[2018-03-25 07:31] LABS: Actual Bicarbonate (HCO3a) 24.3 mEq/L (22-28); Base Excess (BEa) 1.1 mEq/L (-2.0 to +3.0); CO2 Tension 33.5 mmHg (35.0-45.0); Calcium, Ionized 1.18 mmol/L (1.12-1.30); Carboxyhemoglobin (COHb) 0.5 gm% (0.0-3.0); Hemoglobin (Hb) 10.6 g/dL (12.0-16.0); O2 Tension (PaO2) 85.2 mmHg (> 70.0); Potassium - ABG Lab 3.64 mmol/L (3.70-5.30); pH, Arterial 7.48 (7.35-7.45)
--- NOTE | 2018-03-25 07:54 | RAD ---
CHEST 1 VIEW: HISTORY: Dyspnea. Followup. COMPARISON: 03/24/2018. FINDINGS: Cardiac silhouette is magnified and upper limits of normal in size. Pulmonary vasculature remains en gorged. Bibasilar infiltrates, right greater than left, are similar in appearance to the previous ex am. Slight leftward rotation of the patient. Lines and tubes are unchanged in position. IMPRESSION: Pulmonary edema and other findings are stable. POS: [facility]
[2018-03-25 08:15] LABS: ALV-art Gradient 158.125 (0-20); Puncture Site RBA
[2018-03-25] MEDS: cefTRIAXone\\ROCEPHIN 2 GM in Sodium Chloride 0.9% 100 ML IVPB SCH ×2 (08:24→20:45)
[2018-03-25] MEDS: Furosemide 40 MG/4 ML VIAL SLOW IVP SCH (08:40)
[2018-03-25] MEDS: Enoxaparin Sodium 40 MG/0.4 ML SYRINGE SC SCH (08:40)
[2018-03-25] MEDS: Pantoprazole 40 MG VIAL IVP SCH (08:40)
[2018-03-25] MEDS: Carvedilol 25 MG TAB PO SCH ×2 (08:41→20:45)
[2018-03-25] MEDS: Losartan 25 MG TAB PO SCH (08:47)
[2018-03-25] MEDS: Lorazepam 2 MG/ML VIAL SLOW IVP PRN (09:51)
--- NOTE | 2018-03-25 09:51 | PRG ---
DATE OF SERVICE: 03/25/2018 Thirty-five minutes critical care time. SUBJECTIVE: The patient remains intubated. She will wake up and follow some commands, but nothing v igorously. Today, her son was at the bedside and I spent a great deal of time speaking with him abou t her care. PHYSICAL EXAMINATION: VITAL SIGNS: On exam, the temperature is 98.2 with no fever over the last 24 hours, pulse 70, blood pressure 137/78, O2 sat 96%. Total intake for 24 hours is 1247 and output 4671. HEENT EXAM: Pupils are reactive. Eyes are no longer deviating and she is starting to track better. Oropharynx clear. NECK: No JVD. LUNGS: Clear without wheezing. CARDIAC: S1 and S2, regular, without murmur. ABDOMEN: Soft and nontender. EXTREMITIES: No clubbing, cyanosis, or edema. LABORATORY DATA: White blood cell count 8.8, hematocrit 31.7, platelet count 240. PH 7.48, pCO2 of 33, pO2 of 85 on SIMV rate 12, tidal volume 500, PEEP 5, pressure support 10, FiO2 of 40%. Sodium 14 2, potassium 3.6, chloride 112, CO2 of 25, BUN 28, creatinine 0.6, glucose 123. ASSESSMENT: 1. Meningitis. 2. Acute respiratory failure, requiring mechanical ventilation. 3. Mild volume overload, which is better after diuresis. PLAN: 1. One more dose Lasix today. 2. Continue enteral tube feeds. 3. Continue broad-spectrum IV antibiotics. 4. I do not think she is weanable until her mental status is better. This was explained to her son. Hopefully, we can make progress towards extubation over this week. I do not think we should attemp t to turn the ventilator down until her mental status has improved.
--- NOTE | 2018-03-25 14:00 | PDOC.PN ---
- Subjective Encounter Start Date: 03/25/18 Encounter Start Time: 08:55 Intubated. No new issues noted. - Objective Resuscitation Status: Resuscitation Status FULL:Full Resuscitation Vital Signs & Weight: Vital Signs (12 hours) Temp Pulse Resp BP Pulse Ox 03/25/18 12:00 15 03/25/18 11:28 64 98/55 L 03/25/18 11:21 64 14 99 03/25/18 10:00 12 03/25/18 08:00 98.3 F 16 97 03/25/18 07:47 64 141/113 H 03/25/18 07:45 63 12 97 03/25/18 06:00 16 03/25/18 04:00 98.2 F 03/25/18 02:28 64 16 98 Weight Admit Weight 300 lb Weight 320 lb 15.889 oz Most Recent Monitor Data Heart Rate from ECG 75 NIBP 133/82 NIBP BP-Mean 99 Respiration from ECG 18 SpO2 97 I&O: 03/24/18 03/25/18 03/26/18 06:59 06:59 06:59 Intake Total 4123 1247 Output Total 3100 4671 130 Balance 1023 -3424 -130 Result Diagrams: 03/25/18 04:28 03/25/18 04:28 Phys Exam - Physical Examination Constitutional: NAD Intubated. Respiratory: no wheezing, no rales, no rhonchi, clear to auscultation bilateral Cardiovascular: RRR, no significant murmur, no rub Gastrointestinal: soft, non-tender, no distention, positive bowel sounds Musculoskeletal: no edema Dx/Plan (1) Streptococcal bacteremia Code(s): R78.81 - BACTEREMIA; B95.5 - UNSP STREPTOCOCCUS THE CAUSE OF DISEASES CLASSD ELSWHR Status: Acute Comment: On Rocephin. ID recommendations. (2) UTI due to Klebsiella species Code(s): N39.0 - URINARY TRACT INFECTION, SITE NOT SPECIFIED; B96.1 - KLEBSIELLA PNEUMONIAE THE CAUSE OF DISEASES CLASSD ELSWHR Status: Acute Comment: Covered by the Rocephin. (3) Acute bacterial meningitis Code(s): G00.9 - BACTERIAL MENINGITIS, UNSPECIFIED Status: Acute Comment: Presumed Strep based upon the bacteremia. Continue Rocephin. (4) Acute respiratory failure with hypoxia Code(s): J96.01 - ACUTE RESPIRATORY FAILURE WITH HYPOXIA Status: Acute Comment: Pulm./CC managing vent. Mental status not adequate for weaning. (5) Sepsis Code(s): A41.9 - SEPSIS, UNSPECIFIED ORGANISM Status: Resolved Comment: Step bacteremia, Klebsiella UTI, evidence of meningitis on LP. (6) Altered mental status Code(s): R41.82 - ALTERED MENTAL STATUS, UNSPECIFIED Status: Acute Comment: Unclear if she has significant neuro injury from infection/hypoxia. Able to follow some commands. (7) Anemia Code(s): D64.9 - ANEMIA, UNSPECIFIED Status: Acute (8) HTN (hypertension) Code(s): I10 - ESSENTIAL (PRIMARY) HYPERTENSION Status: Chronic (9) Morbid obesity with BMI of 40.0-44.9, adult Code(s): E66.01 - MORBID (SEVERE) OBESITY DUE TO EXCESS CALORIES; Z68.41 - BODY MASS INDEX (BMI) 40.0-44.9, ADULT Status: Chronic - Plan * As above. Continue vent support with daily sedation holidays and nutritional support.
[2018-03-26] MEDS: Propofol 1,000 MG/100 ML VIAL IV PRN ×4 (00:22→18:30)
[2018-03-26] MEDS: Dexamethasone 4 mg/ml Vial SLOW IVP SCH ×4 (00:22→17:39)
[2018-03-26 04:23] LABS: Anion Gap 10 mmol/L (10-20); BUN (Urea Nitrogen) 27 mg/dL (9.8-20.1); Calc. Creatinine Clearance 156 mL/min (70-130); Calcium 8.5 mg/dL (7.8-10.44); Carbon Dioxide 26 mmol/L (23-31); Chloride 109 mmol/L (98-107); Estimated GFR-MDRD Greater than 90; Glucose 132 mg/dL (83-110); Potassium 3.5 mmol/L (3.5-5.1); Sodium 141 mmol/L (136-145)
[2018-03-26 04:31] LABS: Hemoglobin 10.2 g/dL (12.0-16.0); Lymphocytes 24 % (21-51); MDiff Complete? YES; Mean Corpuscular HGB CONC 31.6 g/dL (32.0-36.0); Mean Corpuscular Volume 85.4 fL (78.0-98.0); Mean Platelet Volume 7.4 fL (7.4-10.4); Monocytes 10 % (0-10); Neutrophil 66 % (42-75); PLT Morphology Comment Appears Adequate; Platelet Count 256 thou/uL (130-400); RBC Distribution Width 14.1 % (11.5-14.5); Red Blood Cell (RBC) Count 3.76 mill/uL (4.20-5.40); White Blood Cell (WBC) Count 10.8 thou/uL (4.8-10.8)
[2018-03-26 06:49] LABS: Actual Bicarbonate (HCO3a) 26.1 mEq/L (22-28); Base Excess (BEa) 2.8 mEq/L (-2.0 to +3.0); CO2 Tension 35.3 mmHg (35.0-45.0); Calcium, Ionized 1.16 mmol/L (1.12-1.30); Carboxyhemoglobin (COHb) 0.5 gm% (0.0-3.0); Hemoglobin (Hb) 10.8 g/dL (12.0-16.0); O2 Tension (PaO2) 87.5 mmHg (> 70.0); Potassium - ABG Lab 3.74 mmol/L (3.70-5.30); pH, Arterial 7.49 (7.35-7.45)
[2018-03-26 06:50] LABS: ALV-art Gradient 153.575 (0-20); Puncture Site LBA
[2018-03-26] MEDS: cefTRIAXone\\ROCEPHIN 2 GM in Sodium Chloride 0.9% 100 ML IVPB SCH ×2 (08:51→20:30)
[2018-03-26] MEDS: Carvedilol 25 MG TAB PO SCH ×2 (08:51→20:30)
[2018-03-26] MEDS: Losartan 25 MG TAB PO SCH (08:52)
[2018-03-26] MEDS: Furosemide 40 MG/4 ML VIAL SLOW IVP SCH (08:52)
[2018-03-26] MEDS: Enoxaparin Sodium 40 MG/0.4 ML SYRINGE SC SCH (08:52)
[2018-03-26] MEDS: Pantoprazole 40 MG VIAL IVP SCH (08:53)
--- NOTE | 2018-03-26 09:07 | RAD ---
SUPINE PORTABLE CHEST: Date: 03/26/18 HISTORY: Shortness of breath. Patient on ventilator with CCU follow-up. COMPARISON: 03/25/18. FINDINGS: Patient is rotated, distorting the exam. There is bibasilar opacification, more prominent on the righ t, suggesting atelectasis or infiltrate, unchanged from yesterday. There is possible atelectasis in t he left mid lung. ET tube has tip just above soledad. IMPRESSION: No evidence of acute interval change. POS: [facility]
[2018-03-26] MEDS: Potassium Chloride 40 MEQ in Premix Bag 1 BAG IVPB PRN (10:38)
--- NOTE | 2018-03-26 11:02 | PDOC.PN ---
- Subjective Encounter Start Date: 03/26/18 Encounter Start Time: 11:00 Subjective: intubated, unresponsive - Objective Resuscitation Status: Resuscitation Status FULL:Full Resuscitation MAR Reviewed: Yes Vital Signs & Weight: Vital Signs (12 hours) Temp Pulse Resp Pulse Ox 03/26/18 10:17 69 03/26/18 06:44 62 03/26/18 06:00 12 03/26/18 04:00 98 F 14 03/26/18 02:23 63 12 97 03/26/18 00:00 99.5 F Weight Admit Weight 300 lb Weight 313 lb 0.902 oz Most Recent Monitor Data Heart Rate from ECG 70 NIBP 124/64 NIBP BP-Mean 84 Respiration from ECG 19 SpO2 98 I&O: 03/25/18 03/26/18 03/27/18 06:59 06:59 06:59 Intake Total 1247 1682 Output Total 4671 3317 Balance -0313 -4332 Result Diagrams: 03/26/18 03:28 03/26/18 03:28 Phys Exam - Physical Examination Neck: no JVD rhochi, coarse BS diffusely Cardiovascular: RRR, no significant murmur Gastrointestinal: soft, positive bowel sounds Musculoskeletal: edema present Neurological: non-focal Dx/Plan (1) Encephalopathy acute Code(s): G93.40 - ENCEPHALOPATHY, UNSPECIFIED Status: Acute (2) Acute bacterial meningitis Code(s): G00.9 - BACTERIAL MENINGITIS, UNSPECIFIED Status: Acute Comment: Presumed Strep based upon the bacteremia. Continue Rocephin. (3) Acute respiratory failure with hypoxia Code(s): J96.01 - ACUTE RESPIRATORY FAILURE WITH HYPOXIA Status: Acute Comment: Pulm./CC managing vent. Mental status not adequate for weaning. (4) Streptococcal bacteremia Code(s): R78.81 - BACTEREMIA; B95.5 - UNSP STREPTOCOCCUS THE CAUSE OF DISEASES CLASSD ELSWHR Status: Acute Comment: On Rocephin. ID recommendations. (5) UTI due to Klebsiella species Code(s): N39.0 - URINARY TRACT INFECTION, SITE NOT SPECIFIED; B96.1 - KLEBSIELLA PNEUMONIAE THE CAUSE OF DISEASES CLASSD ELSWHR Status: Acute Comment: Covered by the Rocephin. (6) Seizures Code(s): R56.9 - UNSPECIFIED CONVULSIONS Status: Acute Comment: EEG without epileptiform activity (7) Dyslipidemia Code(s): E78.5 - HYPERLIPIDEMIA, UNSPECIFIED Status: Chronic (8) HTN (hypertension) Code(s): I10 - ESSENTIAL (PRIMARY) HYPERTENSION Status: Chronic Qualifiers: Hypertension type: essential hypertension Qualified Code(s): I10 - Essential (primary) hypertension - Plan vent dependant -: no improvement in MS -: cont iv antibx -: cont nutrition * .
--- NOTE | 2018-03-26 19:46 | PRG ---
DATE OF SERVICE: 03/26/2018 SUBJECTIVE: Yamile Black appears to be improving neurologically over the weekend. She would open he r eyes. Heart rates in the 70s, respiratory rate 16, blood pressure 143/84. Oximetry is 100%. Intake and output is negative 1635. OBJECTIVE: LUNGS: Clear anteriorly. HEART: Regular rhythm. ABDOMEN: Soft. EXTREMITIES: Without asymmetry or edema. IMAGING: Bibasilar infiltrates or atelectasis were seen on chest x-ray. LABORATORY DATA: White count 10.8, hemoglobin 10.2, platelets 256,000. Sodium 141, potassium 3.5, c hloride 109, bicarb 26, BUN 27, creatinine 0.67. IMPRESSION: 1. Meningitis. She had strep pneumonia grow out of 1 blood culture, essentially a penicillin-resist ant pneumococcus. 2. Klebsiella cystitis. PLAN: Continue ventilatory support with decreasing support. Based on her gradually improving neurol ogical status, hoping for extubation soon. Critical care time 30 minutes.
[2018-03-27] MEDS: Dexamethasone 4 mg/ml Vial SLOW IVP SCH ×2 (00:34→06:11)
[2018-03-27] MEDS: Propofol 1,000 MG/100 ML VIAL IV PRN ×2 (00:34→06:11)
--- NOTE | 2018-03-27 01:38 | PRG ---
DATE OF SERVICE: 03/26/2018 SUBJECTIVE: Ms. Black still intubated, but there is a planned extubation. According to the nurse, she is following commands. She is still somewhat sedated, has had some liquid stool, probably not C. diff. C. diff test was negative and she is on enteric feedings. OBJECTIVE: VITAL SIGNS: T-max 100.1 yesterday at 8:00 p.m. T-max at 99.5 on 03/26, blood pressure 120/60, pulse 63, O2 sat 99%. HEENT: Ocular movements are conjugate. Pupils are reactive. LUNGS: With symmetric air entry, fairly clear. CARDIOVASCULAR: S1, S2, regular rate without murmurs. ABDOMEN: Soft, not distended or tender. It seems to be able to move extremities. LABORATORY DATA: White cell count at 10.8, hemoglobin 10.2, 24% lymphocytes. Chemistry with creatinine of 0.67, sodium 141, potassium 3.5. The patient has C. diff antigen/toxin test which was negative from yesterday. ASSESSMENT AND DISCUSSION: Obesity, hypertension, seizure activity, change in mental status, fever, abnormal cerebrospinal fluid, suggestive of meningitis, normal MRI of head and Streptococcus pneumoniae this time isolated from blood cultures. Cerebrospinal fluid cultures negative from prior initiation of antimicrobial therapy. No evidence of complications. Patient is currently on Rocephin. She is also on Decadron, which probably does not need Decadron anymore. Hopefully, extubated by tomorrow. [facility]
[2018-03-27 04:33] LABS: #Eosinphils 0.1 thou/uL (0.0-0.7); #Lymphocytes 1.1 thou/uL (1.20-3.40); #Monocytes 0.7 thou/uL (0.11-0.59); #Neutrophils 9.9 thou/uL (1.40-6.50); %Basophils 0.2 % (0.0-1.0); %Monocytes 5.6 % (0.0-10.0); %Neutrophils 84.3 % (42.0-75.0); Hemoglobin 9.3 g/dL (12.0-16.0); Mean Corpuscular HGB CONC 30.2 g/dL (32.0-36.0); Mean Corpuscular Hemoglobin 25.9 pg (27.0-31.0); Mean Corpuscular Volume 85.8 fL (78.0-98.0); Mean Platelet Volume 7.3 fL (7.4-10.4); Platelet Count 254 thou/uL (130-400); RBC Distribution Width 14.3 % (11.5-14.5); White Blood Cell (WBC) Count 11.8 thou/uL (4.8-10.8)
[2018-03-27 05:10] LABS: Anion Gap 10 mmol/L (10-20); BUN (Urea Nitrogen) 30 mg/dL (9.8-20.1); Calc. Creatinine Clearance 155 mL/min (70-130); Calcium 8.4 mg/dL (7.8-10.44); Carbon Dioxide 27 mmol/L (23-31); Chloride 108 mmol/L (98-107); Estimated GFR-MDRD Greater than 90; Glucose 142 mg/dL (83-110); Potassium 3.7 mmol/L (3.5-5.1); Sodium 141 mmol/L (136-145)
[2018-03-27 06:58] LABS: ALV-art Gradient 123.425 (0-20); Actual Bicarbonate (HCO3a) 28.7 mEq/L (22-28); Base Excess (BEa) 4.3 mEq/L (-2.0 to +3.0); CO2 Tension 42.7 mmHg (35.0-45.0); Calcium, Ionized 1.17 mmol/L (1.12-1.30); Carboxyhemoglobin (COHb) 0.4 gm% (0.0-3.0); Hemoglobin (Hb) 10.7 g/dL (12.0-16.0); O2 Tension (PaO2) 108.4 mmHg (> 70.0); Potassium - ABG Lab 3.94 mmol/L (3.70-5.30); Puncture Site RRA; pH, Arterial 7.45 (7.35-7.45)
--- NOTE | 2018-03-27 08:59 | RAD ---
PORTABLE CHEST: History: Respiratory distress. Comparison: Prior day's study. FINDINGS: Patient is rotated on this exam. Heart size appears enlarged. Parenchymal lung changes and pleural ch anges in the bases appear stable. Endotracheal tube is in satisfactory position. NG tube is seen belo w the hemidiaphragm. Right subclavian line is unchanged in position. IMPRESSION: Essentially stable exam. POS: [facility]
[2018-03-27] MEDS: Morphine 4 MG/ML VIAL SLOW IVP PRN ×4 (09:54→17:12)
[2018-03-27] MEDS: Pantoprazole 40 MG VIAL IVP SCH (09:57)
[2018-03-27] MEDS: Enoxaparin Sodium 40 MG/0.4 ML SYRINGE SC SCH (09:57)
[2018-03-27] MEDS: cefTRIAXone\\ROCEPHIN 2 GM in Sodium Chloride 0.9% 100 ML IVPB SCH ×2 (09:58→20:03)
[2018-03-27] MEDS: Losartan 25 MG TAB PO SCH (09:59)
[2018-03-27] MEDS: Carvedilol 25 MG TAB PO SCH ×2 (09:59→20:03)
[2018-03-27] MEDS: Furosemide 40 MG/4 ML VIAL SLOW IVP SCH (09:59)
[2018-03-27] MEDS ORDERED: Fluconazole In NaCl,Iso-Osm 100 MG in Premix Bag 1 BAG IVPB SCH (14:00)
--- NOTE | 2018-03-27 15:04 | PDOC.PN ---
- Subjective Encounter Start Date: 03/27/18 Encounter Start Time: 15:02 Subjective: awake but still intubated -: gestures that she feels OK.denies any pain/SOB - Objective Resuscitation Status: Resuscitation Status FULL:Full Resuscitation MAR Reviewed: Yes Vital Signs & Weight: Vital Signs (12 hours) Temp Pulse Resp Pulse Ox 03/27/18 14:22 70 21 H 98 03/27/18 12:50 67 03/27/18 10:47 77 03/27/18 08:56 74 03/27/18 06:52 66 03/27/18 06:00 14 03/27/18 04:00 98.9 F 14 Weight Admit Weight 300 lb Weight 315 lb 0.649 oz Most Recent Monitor Data Heart Rate from ECG 74 NIBP 101/62 NIBP BP-Mean 75 Respiration from ECG 10 SpO2 97 I&O: 03/26/18 03/27/18 03/28/18 06:59 06:59 06:59 Intake Total 1682 2337 Output Total 3313 3678 Balance -6408 -3824 Result Diagrams: 03/27/18 04:20 03/27/18 04:20 Additional Labs: Microbiology 03/23/18 Unknown Stool - Loose C. difficile GDH Antigen & Toxins - Final 03/18/18 10:56 Spinal Fluid - Aspirate Body Fluid Culture - Final 03/17/18 18:21 Nasal swab Influenza Types A,B Direct EIA - Final 03/17/18 17:30 Venous blood - Left Hand Blood Culture - Final NO GROWTH IN 5 DAYS 03/17/18 17:21 Venous blood - Right Arm Blood Culture - Final Streptococcus pneumoniae 03/17/18 17:16 Urine jefferson catheter Urine Culture - Final Klebsiella pneumoniae ssp pneu Laboratory Tests 03/18/18 03/18/18 09:42 10:56 West Nile Virus IgG Ab Negative West Nile Virus IgM Ab Negative HSV I DNA PCR Negative HSV II DNA PCR Negative Phys Exam - Physical Examination Constitutional: NAD ETT HEENT: PERRLA, moist MMs, sclera anicteric, oral pharynx no lesions Neck: no nodes, no JVD, supple, full ROM Respiratory: no wheezing, no rales, no rhonchi, clear to auscultation bilateral Cardiovascular: RRR, no significant murmur Gastrointestinal: soft, non-tender, no distention, positive bowel sounds Musculoskeletal: no edema, pulses present Neurological: non-focal, normal sensation, moves all 4 limbs Psychiatric: normal affect, A&O x 3 Skin: no rash Dx/Plan (1) Acute bacterial meningitis Code(s): G00.9 - BACTERIAL MENINGITIS, UNSPECIFIED Status: Acute Comment: Presumed Strep based upon the bacteremia. Continue Rocephin. (2) Acute respiratory failure with hypoxia Code(s): J96.01 - ACUTE RESPIRATORY FAILURE WITH HYPOXIA Status: Acute Comment: Pulm./CC managing vent. Mental status better for weaning. (3) Seizures Code(s): R56.9 - UNSPECIFIED CONVULSIONS Status: Acute Comment: EEG without epileptiform activity (4) UTI (urinary tract infection) Status: Acute Comment: Klebsiella (5) Sepsis Code(s): A41.9 - SEPSIS, UNSPECIFIED ORGANISM Status: Resolved Comment: Step bacteremia, Klebsiella UTI, evidence of meningitis on LP. (6) Altered mental status Code(s): R41.82 - ALTERED MENTAL STATUS, UNSPECIFIED Status: Acute Comment: Unclear if she has significant neuro injury from infection/hypoxia. Able to follow simple commands. (7) Dyslipidemia Code(s): E78.5 - HYPERLIPIDEMIA, UNSPECIFIED Status: Chronic (8) HTN (hypertension) Code(s): I10 - ESSENTIAL (PRIMARY) HYPERTENSION Status: Chronic Qualifiers: Hypertension type: essential hypertension Qualified Code(s): I10 - Essential (primary) hypertension (9) Morbid obesity with BMI of 40.0-44.9, adult Code(s): E66.01 - MORBID (SEVERE) OBESITY DUE TO EXCESS CALORIES; Z68.41 - BODY MASS INDEX (BMI) 40.0-44.9, ADULT Status: Chronic Comment: Suspected Grp A Strept as positive in blood - Plan continue antibiotics, PT/OT, respiratory therapy, incentive spirometry, DVT proph w/SCDs cont rocephin. CSF Cx remian negative.West Nile and HSV studies CSF negativ -: Vent support and weaning as tolerated -: cont keppra.no active seizures. -: SNIF for DC. -: am labs * . Review of Systems - Review of Systems Other: LIMITED d/t intubated status - Medications/Allergies Allergies/Adverse Reactions: Allergies Allergy/AdvReac Type Severity Reaction Status Date / Time NSAIDS (Non-Steroidal Allergy Verified 10/30/16 15:52 Anti-Inflamma aspirin AdvReac Verified 10/30/16 15:52 Medications: Current Medications Albuterol/Ipratropium (Duoneb) 3 ml NEB [id number] [facility] Last Admin: 03/27/18 14:22 Dose: 3 ml Carvedilol (Coreg) 25 mg PO BID [facility] Last Admin: 03/27/18 09:59 Dose: 25 mg Enoxaparin Sodium (Lovenox) 40 mg SC 0900 [facility] Last Admin: 03/27/18 09:57 Dose: 40 mg Furosemide (Lasix) 40 mg SLOW IVP DAILY [facility] Last Admin: 03/27/18 09:59 Dose: 40 mg Hydralazine HCl (Apresoline) 10 mg SLOW IVP Q4H PRN PRN Reason: SBP Greater Than 170 Last Admin: 03/22/18 09:55 Dose: 10 mg Levetiracetam 500 mg/ Device 100 mls @ 200 mls/hr IVPB BID [facility] Last Admin: 03/27/18 09:59 Dose: 100 mls Potassium Chloride 40 meq/ (Sodium Chloride) 270 mls @ 135 mls/hr IVPB ASDIR PRN PRN Reason: FOR SERUM K+ 2.5 - 3.5 Potassium Chloride 40 meq/ (Device) 100 mls @ 50 mls/hr IVPB ASDIR PRN PRN Reason: FOR SERUM K+ 2.5 - 3.5 Last Admin: 03/26/18 10:38 Dose: 100 mls Magnesium Sulfate 1 gm/ Sodium (Chloride) 102 mls @ 102 mls/hr IV PRN PRN PRN Reason: MAG LEVEL 1.4 - 2.0 Last Admin: 03/18/18 13:00 Dose: 102 mls Magnesium Sulfate 2 gm/ Device 100 mls @ 100 mls/hr IVPB ASDIR PRN PRN Reason: MAGNESIUM < 1.4 Potassium Phosphate 9 mmol/ (Sodium Chloride) 103 mls @ 25.75 mls/hr IVPB ASDIR PRN PRN Reason: Phosphate 1.0-1.8 Potassium Phosphate 12 mmol/ (Sodium Chloride) 254 mls @ 63.5 mls/hr IV ASDIR PRN PRN Reason: Serum phosphate 0.5-0.9 Potassium Phosphate 15 mmol/ (Sodium Chloride) 255 mls @ 63.75 mls/hr IV ASDIR PRN PRN Reason: Serum Phos < 0.5 Ceftriaxone Sodium 2 gm/ (Sodium Chloride) 100 mls @ 200 mls/hr IVPB Q12HR [facility] Last Admin: 03/27/18 09:58 Dose: 100 mls Fluconazole/Sodium Chloride 100 mg/ Miscellaneous Medication 1 each/ Device 50 mls @ 100 mls/hr IVPB 1400 [facility]UCKY Lorazepam (Ativan) 2 mg SLOW IVP Q1H PRN PRN Reason: Breakthrough agitation Stop: 04/16/18 19:33 Last Admin: 03/25/18 09:51 Dose: 2 mg Losartan Potassium (Cozaar) 100 mg PO DAILY [facility] Last Admin: 03/27/18 09:59 Dose: 100 mg Magnesium Oxide (Magnesium Oxide) 400 mg PO BIDPRN PRN PRN Reason: FOR SERUM MAG 1.4 - 2.0 Magnesium Oxide (Magnesium Oxide) 800 mg PO PRN PRN PRN Reason: FOR SERUM MAG < 1.4 Methylprednisolone Sodium Succinate (Solu-Medrol) 40 mg IVP Q6HR [facility] Last Admin: 03/27/18 11:28 Dose: 40 mg Miscellaneous Medication (Phos-Nak) 1 pkt PO TIDPRN PRN PRN Reason: FOR PHOS LEVEL 1.0 - 1.8 Miscellaneous Medication (Phos-Nak) 2 pkt PO TIDPRN PRN PRN Reason: FOR PHOS LEVEL 0.5 - 1.0 Morphine Sulfate (Morphine Sulfate) 2 mg SLOW IVP Q1H PRN PRN Reason: BREAKTHROUGH PAIN/AGITATION Stop: 04/16/18 19:33 Morphine Sulfate (Morphine) 4 mg SLOW IVP Q1H PRN PRN Reason: Breakthrough Pain/AGITATION Last Admin: 03/27/18 11:28 Dose: 4 mg Ondansetron HCl (Zofran) 4 mg IVP Q6H PRN PRN Reason: Nausea/Vomiting Pantoprazole Sodium (Protonix) 40 mg IVP DAILY [facility] Last Admin: 03/27/18 09:57 Dose: 40 mg Potassium Chloride (K-Dur) 40 meq PO ASDIR PRN PRN Reason: FOR SERUM K+ 2.5 - 3.5 Last Admin: 03/20/18 11:18 Dose: 40 meq Potassium Chloride (Klor-Con) 40 meq PER TUBE ASDIR PRN PRN Reason: FOR SERUM K+ 2.5-3.5 Last Admin: 03/22/18 08:14 Dose: 40 meq Sodium Chloride (Flush - Normal Saline) 10 ml IVF Q12HR [facility]UCK[facility] Last Admin: 03/27/18 09:00 Dose: 10 ml Sodium Chloride (Flush - Normal Saline) 10 ml IVF PRN PRN PRN Reason: Saline Flush
[2018-03-27] MEDS: Fluconazole In NaCl,Iso-Osm 100 MG, Admixture Fee 1 EACH in Premix Bag 1 BAG IVPB SCH (15:21)
[2018-03-27] MEDS: Scopolamine 1.5 mg/72 hour Patch TD SCH (15:55)
--- NOTE | 2018-03-27 17:51 | PRG ---
DATE OF SERVICE: 03/27/2018 SUBJECTIVE: Ms. Black is awake and alert. This morning, her minute volume was less than 10 liters a minute. She has some secretions, but they are not overly excessive. Surprisingly, when we checked for a leak, she had no leak with her cuff deflated. She has an 8.0 endotracheal tube in. She has been on Decadron, so this is unusual. I stopped her Decadron and placed her on Solu-Medrol 40 mg IV q.6., and we will reassess her for leak tomorrow. OBJECTIVE: LUNGS: Clear. HEART: Regular rhythm. ABDOMEN: Soft. EXTREMITIES: Without asymmetry or edema. She moves all extremities equally and follows commands. IMPRESSION: 1. Respiratory failure secondary to bacterial meningitis. 2. ? vocal cord edema. We will reassess her in the morning. 3. Deconditioning. I met with the family who was at the bedside and answered their questions. Critical care time 30 minutes.
[2018-03-28] MEDS: Morphine 4 MG/ML VIAL SLOW IVP PRN (01:15)
[2018-03-28 04:58] LABS: Anion Gap 8 mmol/L (10-20); BUN (Urea Nitrogen) 35 mg/dL (9.8-20.1); Calc. Creatinine Clearance 149 mL/min (70-130); Calcium 8.6 mg/dL (7.8-10.44); Carbon Dioxide 31 mmol/L (23-31); Chloride 105 mmol/L (98-107); Estimated GFR-MDRD Greater than 90; Glucose 149 mg/dL (83-110); Potassium 3.9 mmol/L (3.5-5.1); Sodium 140 mmol/L (136-145)
[2018-03-28 05:09] LABS: Hemoglobin 9.7 g/dL (12.0-16.0); Mean Corpuscular HGB CONC 31.3 g/dL (32.0-36.0); Mean Corpuscular Hemoglobin 27.1 pg (27.0-31.0); Mean Corpuscular Volume 86.6 fL (78.0-98.0); Mean Platelet Volume 7.7 fL (7.4-10.4); Platelet Count 226 thou/uL (130-400); RBC Distribution Width 14.4 % (11.5-14.5); Red Blood Cell (RBC) Count 3.57 mill/uL (4.20-5.40); White Blood Cell (WBC) Count 14.1 thou/uL (4.8-10.8)
[2018-03-28 05:19] LABS: Band 19 % (5-11); Lymphocytes 5 % (21-51); MDiff Complete? YES; Monocytes 7 % (0-10); Neutrophil 69 % (42-75); PLT Morphology Comment Appears Adequate
--- NOTE | 2018-03-28 09:15 | RAD ---
SEMI UPRIGHT PORTABLE CHEST ONE VIEW: History: 77-year-old female with history of respiratory insufficiency. FINDINGS: Life support tubes in place and overall stable. Cardiomegaly with bilateral vascular congestion and p robable mild interstitial edema and small pleural effusions with little change from prior study. IMPRESSION: Overall stable chest with cardiomegaly and bilateral vascular congestion and probable minimal interst itial edema and pleural effusions. Continued short term follow up. POS: EMILY
[2018-03-28] MEDS: Pantoprazole 40 MG VIAL IVP SCH (09:17)
[2018-03-28] MEDS: cefTRIAXone\\ROCEPHIN 2 GM in Sodium Chloride 0.9% 100 ML IVPB SCH ×2 (09:17→22:19)
[2018-03-28] MEDS: Furosemide 40 MG/4 ML VIAL SLOW IVP SCH (09:17)
[2018-03-28] MEDS: Enoxaparin Sodium 40 MG/0.4 ML SYRINGE SC SCH (09:18)
[2018-03-28] MEDS: Carvedilol 25 MG TAB PO SCH ×3 (09:18→22:19)
[2018-03-28] MEDS: Losartan 25 MG TAB PO SCH (09:31)
[2018-03-28] MEDS: Fluconazole In NaCl,Iso-Osm 100 MG, Admixture Fee 1 EACH in Premix Bag 1 BAG IVPB SCH (15:12)
--- NOTE | 2018-03-28 15:37 | PDOC.PN ---
- Subjective Encounter Start Date: 03/28/18 Encounter Start Time: 15:36 Subjective: feels better.stilll intubated but shakes head for pain/discomfort - Objective Resuscitation Status: Resuscitation Status FULL:Full Resuscitation MAR Reviewed: Yes Vital Signs & Weight: Vital Signs (12 hours) Temp Pulse BP 03/28/18 13:35 68 119/56 L 03/28/18 09:48 63 152/86 H 03/28/18 07:35 87 137/74 03/28/18 07:00 98.3 F 03/28/18 04:00 98.9 F Weight Admit Weight 300 lb Weight 308 lb 6.827 oz Most Recent Monitor Data Heart Rate from ECG 71 NIBP 119/59 NIBP BP-Mean 79 Respiration from ECG 14 SpO2 96 I&O: 03/27/18 03/28/18 03/29/18 06:59 06:59 06:59 Intake Total 2337 2177 200 Output Total 3525 3055 850 [facility]0941 -878 -650 Result Diagrams: 03/28/18 04:07 03/28/18 04:07 Additional Labs: Microbiology 03/23/18 Unknown Stool - Loose C. difficile GDH Antigen & Toxins - Final 03/18/18 10:56 Spinal Fluid - Aspirate Body Fluid Culture - Final 03/17/18 18:21 Nasal swab Influenza Types A,B Direct EIA - Final 03/17/18 17:30 Venous blood - Left Hand Blood Culture - Final NO GROWTH IN 5 DAYS 03/17/18 17:21 Venous blood - Right Arm Blood Culture - Final Streptococcus pneumoniae 03/17/18 17:16 Urine jefferson catheter Urine Culture - Final Klebsiella pneumoniae ssp pneu Laboratory Tests 03/18/18 09:42 West Nile Virus IgG Ab Negative West Nile Virus IgM Ab Negative Phys Exam - Physical Examination Constitutional: NAD awake and alert.follows commands HEENT: PERRLA, moist MMs, sclera anicteric, oral pharynx no lesions ETT Neck: no nodes, no JVD, supple, full ROM Respiratory: no wheezing, no rales, no rhonchi, clear to auscultation bilateral Cardiovascular: RRR, no significant murmur Gastrointestinal: soft, non-tender, no distention, positive bowel sounds Musculoskeletal: no edema, pulses present Neurological: non-focal, normal sensation, moves all 4 limbs Psychiatric: normal affect, A&O x 3 Skin: no rash Dx/Plan (1) Acute bacterial meningitis Code(s): G00.9 - BACTERIAL MENINGITIS, UNSPECIFIED Status: Acute Comment: Presumed Pneumococcal based upon the bacteremia. Continue Rocephin. (2) Acute respiratory failure with hypoxia Code(s): J96.01 - ACUTE RESPIRATORY FAILURE WITH HYPOXIA Status: Acute Comment: Pulm./CC managing vent. Mental status better for weaning. (3) Seizures Code(s): R56.9 - UNSPECIFIED CONVULSIONS Status: Acute Comment: EEG without epileptiform activity (4) UTI (urinary tract infection) Status: Acute Comment: Klebsiella (5) Sepsis Code(s): A41.9 - SEPSIS, UNSPECIFIED ORGANISM Status: Resolved Comment: Step bacteremia, Klebsiella UTI, evidence of meningitis on LP. (6) Altered mental status Code(s): R41.82 - ALTERED MENTAL STATUS, UNSPECIFIED Status: Acute Comment: Unclear if she has significant neuro injury from infection/hypoxia. Able to follow simple commands. (7) Dyslipidemia Code(s): E78.5 - HYPERLIPIDEMIA, UNSPECIFIED Status: Chronic (8) HTN (hypertension) Code(s): I10 - ESSENTIAL (PRIMARY) HYPERTENSION Status: Chronic Qualifiers: Hypertension type: essential hypertension Qualified Code(s): I10 - Essential (primary) hypertension (9) Morbid obesity with BMI of 40.0-44.9, adult Code(s): E66.01 - MORBID (SEVERE) OBESITY DUE TO EXCESS CALORIES; Z68.41 - BODY MASS INDEX (BMI) 40.0-44.9, ADULT Status: Chronic Comment: Suspected Grp A Strept as positive in blood - Plan continue antibiotics, PT/OT, respiratory therapy, incentive spirometry, out of bed/ambulate, DVT proph w/SCDs clinically better. on Solumedrol to reduce throat swelling -: possible extubation soon.PCCM following. cont vent support for now -: cont rocephin for now. -: cont keppra .no seizures noted -: Hd stable.BP better.cont meds as below.am labs * . Review of Systems - Review of Systems Other: limited d/t intubated status - Medications/Allergies Allergies/Adverse Reactions: Allergies Allergy/AdvReac Type Severity Reaction Status Date / Time NSAIDS (Non-Steroidal Allergy Verified 10/30/16 15:52 Anti-Inflamma aspirin AdvReac Verified 10/30/16 15:52 Medications: Current Medications Albuterol/Ipratropium (Duoneb) 3 ml NEB [id number] [facility] Last Admin: 03/28/18 14:02 Dose: 3 ml Carvedilol (Coreg) 25 mg PO BID [facility] Last Admin: 03/28/18 10:32 Dose: 25 mg Enoxaparin Sodium (Lovenox) 40 mg SC 0900 [facility] Last Admin: 03/28/18 09:18 Dose: 40 mg Furosemide (Lasix) 40 mg SLOW IVP DAILY [facility] Last Admin: 03/28/18 09:17 Dose: 40 mg Hydralazine HCl (Apresoline) 10 mg SLOW IVP Q4H PRN PRN Reason: SBP Greater Than 170 Last Admin: 03/22/18 09:55 Dose: 10 mg Levetiracetam 500 mg/ Device 100 mls @ 200 mls/hr IVPB BID [facility] Last Admin: 03/28/18 09:17 Dose: 100 mls Potassium Chloride 40 meq/ (Sodium Chloride) 270 mls @ 135 mls/hr IVPB ASDIR PRN PRN Reason: FOR SERUM K+ 2.5 - 3.5 Potassium Chloride 40 meq/ (Device) 100 mls @ 50 mls/hr IVPB ASDIR PRN PRN Reason: FOR SERUM K+ 2.5 - 3.5 Last Admin: 03/26/18 10:38 Dose: 100 mls Magnesium Sulfate 1 gm/ Sodium (Chloride) 102 mls @ 102 mls/hr IV PRN PRN PRN Reason: MAG LEVEL 1.4 - 2.0 Last Admin: 03/18/18 13:00 Dose: 102 mls Magnesium Sulfate 2 gm/ Device 100 mls @ 100 mls/hr IVPB ASDIR PRN PRN Reason: MAGNESIUM < 1.4 Potassium Phosphate 9 mmol/ (Sodium Chloride) 103 mls @ 25.75 mls/hr IVPB ASDIR PRN PRN Reason: Phosphate 1.0-1.8 Potassium Phosphate 12 mmol/ (Sodium Chloride) 254 mls @ 63.5 mls/hr IV ASDIR PRN PRN Reason: Serum phosphate 0.5-0.9 Potassium Phosphate 15 mmol/ (Sodium Chloride) 255 mls @ 63.75 mls/hr IV ASDIR PRN PRN Reason: Serum Phos < 0.5 Ceftriaxone Sodium 2 gm/ (Sodium Chloride) 100 mls @ 200 mls/hr IVPB Q12HR [facility] Last Admin: 03/28/18 09:17 Dose: 100 mls Fluconazole/Sodium Chloride 100 mg/ Miscellaneous Medication 1 each/ Device 50 mls @ 100 mls/hr IVPB 1400 [facility] Last Admin: 03/28/18 15:12 Dose: 50 mls Losartan Potassium (Cozaar) 100 mg PO DAILY [facility] Last Admin: 03/28/18 09:31 Dose: 100 mg Magnesium Oxide (Magnesium Oxide) 400 mg PO BIDPRN PRN PRN Reason: FOR SERUM MAG 1.4 - 2.0 Magnesium Oxide (Magnesium Oxide) 800 mg PO PRN PRN PRN Reason: FOR SERUM MAG < 1.4 Methylprednisolone Sodium Succinate (Solu-Medrol) 40 mg IVP Q6HR [facility] Last Admin: 03/28/18 14:29 Dose: 40 mg Miscellaneous Medication (Phos-Nak) 1 pkt PO TIDPRN PRN PRN Reason: FOR PHOS LEVEL 1.0 - 1.8 Miscellaneous Medication (Phos-Nak) 2 pkt PO TIDPRN PRN PRN Reason: FOR PHOS LEVEL 0.5 - 1.0 Morphine Sulfate (Morphine) 4 mg SLOW IVP Q1H PRN PRN Reason: Breakthrough Pain/AGITATION Last Admin: 03/28/18 01:15 Dose: 4 mg Ondansetron HCl (Zofran) 4 mg IVP Q6H PRN PRN Reason: Nausea/Vomiting Pantoprazole Sodium (Protonix) 40 mg IVP DAILY [facility] Last Admin: 03/28/18 09:17 Dose: 40 mg Potassium Chloride (K-Dur) 40 meq PO ASDIR PRN PRN Reason: FOR SERUM K+ 2.5 - 3.5 Last Admin: 03/20/18 11:18 Dose: 40 meq Potassium Chloride (Klor-Con) 40 meq PER TUBE ASDIR PRN PRN Reason: FOR SERUM K+ 2.5-3.5 Last Admin: 03/22/18 08:14 Dose: 40 meq Scopolamine (Transderm Scop) 1.5 mg TD Q3D [facility] Last Admin: 03/27/18 15:55 Dose: 1.5 mg Sodium Chloride (Flush - Normal Saline) 10 ml IVF Q12HR [facility] Last Admin: 03/28/18 14:29 Dose: 10 ml Sodium Chloride (Flush - Normal Saline) 10 ml IVF PRN PRN PRN Reason: Saline Flush
--- NOTE | 2018-03-28 16:09 | PRG ---
DATE OF SERVICE: 03/28/2018 SUBJECTIVE: Yamile Black awake and alert. She still does not have a leak. She is a small lady with an 8.0 endotracheal tube which may explain this, but I plan to wait 24 hours more before we try to a ttempt extubation. We will probably extubate her over a bronchoscope. OBJECTIVE: VITAL SIGNS: Heart rates in the 60s, blood pressure 119/56, respiratory rates in the teens to low 20 s. Her minute volume 7 liters a minute. LUNGS: Clear. HEART: Regular rhythm. S1 and S2 are normal. ABDOMEN: Soft and nontender. EXTREMITIES: Without clubbing, cyanosis, or edema. LABORATORY DATA: White count 14.1, hemoglobin 9.7, platelets 226. Sodium 140, potassium 3.9, chlori de 105, bicarbonate 31, BUN 35, creatinine 0.69. A pH 7.45, CO2 42, pO2 108. IMPRESSION: 1. Bacterial meningitis with improving neurological status. 2. ? vocal cord edema versus a large endotracheal tube in a small lady. 3. Extubation tomorrow. 4. Acute respiratory failure associated with seizures associated with meningitis. PLAN: Continue antimicrobial therapy. Hopeful extubation in the morning. Critical care time was 30 minutes.
[2018-03-29 03:49] LABS: #Lymphocytes 0.9 thou/uL (1.20-3.40); #Monocytes 0.5 thou/uL (0.11-0.59); #Neutrophils 11.3 thou/uL (1.40-6.50); %Basophils 0.2 % (0.0-1.0); %Eosinophils 0.3 % (0.0-10.0); %Lymphocytes 7.3 % (21.0-51.0); %Monocytes 3.5 % (0.0-10.0); %Neutrophils 88.7 % (42.0-75.0); Mean Corpuscular HGB CONC 30.9 g/dL (32.0-36.0); Mean Corpuscular Hemoglobin 26.7 pg (27.0-31.0); Mean Corpuscular Volume 86.4 fL (78.0-98.0); Mean Platelet Volume 7.5 fL (7.4-10.4); Platelet Count 267 thou/uL (130-400); RBC Distribution Width 14.5 % (11.5-14.5); Red Blood Cell (RBC) Count 3.74 mill/uL (4.20-5.40); White Blood Cell (WBC) Count 12.7 thou/uL (4.8-10.8)
[2018-03-29 05:07] LABS: Anion Gap 13 mmol/L (10-20); BUN (Urea Nitrogen) 39 mg/dL (9.8-20.1); Calc. Creatinine Clearance 136 mL/min (70-130); Calcium 8.8 mg/dL (7.8-10.44); Carbon Dioxide 29 mmol/L (23-31); Chloride 106 mmol/L (98-107); Estimated GFR-MDRD Greater than 90; Glucose 183 mg/dL (83-110); Potassium 4.1 mmol/L (3.5-5.1); Sodium 144 mmol/L (136-145)
--- NOTE | 2018-03-29 08:25 | RAD ---
PORTABLE CHEST: HISTORY: Shortness of breath. On a ventilator. CCU followup. COMPARISON: 03/28/2018. FINDINGS/IMPRESSION: ET tube and NG tube remain in place. Linear atelectasis or infiltrate in the right lower lung is aga in noted. Lungs otherwise appear clear and unchanged. The vascular markings are less pronounced tod wilmar. POS: H
[2018-03-29] MEDS: cefTRIAXone\\ROCEPHIN 2 GM in Sodium Chloride 0.9% 100 ML IVPB SCH ×2 (09:04→21:24)
[2018-03-29] MEDS: Pantoprazole 40 MG VIAL IVP SCH (09:07)
[2018-03-29] MEDS: Furosemide 40 MG/4 ML VIAL SLOW IVP SCH (09:08)
[2018-03-29] MEDS: Enoxaparin Sodium 40 MG/0.4 ML SYRINGE SC SCH (09:08)
[2018-03-29] MEDS: Carvedilol 25 MG TAB PO SCH ×2 (09:08→21:23)
[2018-03-29] MEDS: Losartan 25 MG TAB PO SCH (09:51)
--- NOTE | 2018-03-29 14:17 | PDOC.PN ---
- Subjective Encounter Start Date: 03/29/18 Encounter Start Time: 14:14 Subjective: remains intubated this morning.awake and alert. - Objective Resuscitation Status: Resuscitation Status FULL:Full Resuscitation MAR Reviewed: Yes Vital Signs & Weight: Vital Signs (12 hours) Temp Pulse Pulse Pulse Resp BP BP 03/29/18 10:58 62 81 145/78 H 03/29/18 10:04 65 150/84 H 03/29/18 10:01 63 8 L 03/29/18 10:00 8 L 03/29/18 07:00 99 F 03/29/18 06:29 63 150/80 H 03/29/18 06:25 63 10 L 03/29/18 06:00 12 03/29/18 04:00 99.2 F 12 BP Pulse Ox Pulse Ox Pulse Ox 03/29/18 10:58 146/82 H 98 96 03/29/18 10:04 03/29/18 10:01 97 03/29/18 10:00 03/29/18 07:00 03/29/18 06:29 03/29/18 06:25 99 03/29/18 06:00 03/29/18 04:00 Weight Admit Weight 300 lb Weight 306 lb 10.608 oz Most Recent Monitor Data Heart Rate from ECG 50 NIBP 156/88 NIBP BP-Mean 110 Respiration from ECG 16 SpO2 99 I&O: 03/28/18 03/29/18 03/30/18 06:59 06:59 06:59 Intake Total 2177 2328 100 Output Total 3055 2225 510 Balance -878 103 -410 Result Diagrams: 03/29/18 03:21 03/29/18 03:21 Additional Labs: Microbiology 03/23/18 Unknown Stool - Loose C. difficile GDH Antigen & Toxins - Final 03/18/18 10:56 Spinal Fluid - Aspirate Body Fluid Culture - Final 03/17/18 18:21 Nasal swab Influenza Types A,B Direct EIA - Final 03/17/18 17:30 Venous blood - Left Hand Blood Culture - Final NO GROWTH IN 5 DAYS 03/17/18 17:21 Venous blood - Right Arm Blood Culture - Final Streptococcus pneumoniae 03/17/18 17:16 Urine jefferson catheter Urine Culture - Final Klebsiella pneumoniae ssp pneu Phys Exam - Physical Examination Constitutional: NAD ETT HEENT: PERRLA, moist MMs, sclera anicteric, oral pharynx no lesions Neck: no nodes, no JVD, supple, full ROM Respiratory: no wheezing, no rales, no rhonchi, clear to auscultation bilateral Cardiovascular: RRR, no significant murmur, no rub Gastrointestinal: soft, non-tender, no distention, positive bowel sounds Musculoskeletal: no edema, pulses present Neurological: non-focal, normal sensation, moves all 4 limbs Psychiatric: normal affect, A&O x 3 Skin: no rash Dx/Plan (1) Acute bacterial meningitis Code(s): G00.9 - BACTERIAL MENINGITIS, UNSPECIFIED Status: Acute Comment: Presumed Pneumococcal based upon the bacteremia. Continue Rocephin. (2) Acute respiratory failure with hypoxia Code(s): J96.01 - ACUTE RESPIRATORY FAILURE WITH HYPOXIA Status: Acute Comment: Pulm./CC managing vent. Mental status better for weaning. (3) Seizures Code(s): R56.9 - UNSPECIFIED CONVULSIONS Status: Acute Comment: EEG without epileptiform activity (4) UTI (urinary tract infection) Status: Acute Comment: Klebsiella (5) Sepsis Code(s): A41.9 - SEPSIS, UNSPECIFIED ORGANISM Status: Resolved Comment: Step bacteremia, Klebsiella UTI, evidence of meningitis on LP. (6) Altered mental status Code(s): R41.82 - ALTERED MENTAL STATUS, UNSPECIFIED Status: Acute Comment: Unclear if she has significant neuro injury from infection/hypoxia. Able to follow simple commands. (7) Dyslipidemia Code(s): E78.5 - HYPERLIPIDEMIA, UNSPECIFIED Status: Chronic (8) HTN (hypertension) Code(s): I10 - ESSENTIAL (PRIMARY) HYPERTENSION Status: Chronic Qualifiers: Hypertension type: essential hypertension Qualified Code(s): I10 - Essential (primary) hypertension (9) Morbid obesity with BMI of 40.0-44.9, adult Code(s): E66.01 - MORBID (SEVERE) OBESITY DUE TO EXCESS CALORIES; Z68.41 - BODY MASS INDEX (BMI) 40.0-44.9, ADULT Status: Chronic Comment: Suspected Grp A Strept as positive in blood - Plan PT/OT, respiratory therapy, incentive spirometry, DVT proph w/SCDs extubation per PCCM.hemodynamically stable. -: cont empiric ABx.keppra IV BID -: rehab post extubation. -: meds as below. * . Review of Systems - Review of Systems Constitutional: negative: fever, chills, sweats, weakness, malaise, other ENT: negative: Ear Pain, Ear Discharge, Nose Pain, Nose Discharge, Nose Congestion, Mouth Pain, Mouth Swelling, Throat Pain, Throat Swelling, Other Respiratory: negative: Cough, Dry, Shortness of Breath, Hemoptysis, SOB with Excertion, Pleuritic Pain, Sputum, Wheezing Cardiovascular: negative: chest pain, palpitations, orthopnea, paroxysmal nocturnal dyspnea, edema, light headedness, other Gastrointestinal: negative: Nausea, Vomiting, Abdominal Pain, Diarrhea, Constipation, Melena, Hematochezia, Other Genitourinary: negative: Dysuria, Frequency, Incontinence, Hematuria, Retention , Other Musculoskeletal: negative: Neck Pain, Shoulder Pain, Arm Pain, Back Pain, Hand Pain, Leg Pain, Foot Pain, Other Neurological: negative: Weakness, Numbness, Incoordination, Change in Speech, Confusion, Seizures, Other - Medications/Allergies Allergies/Adverse Reactions: Allergies Allergy/AdvReac Type Severity Reaction Status Date / Time NSAIDS (Non-Steroidal Allergy Verified 10/30/16 15:52 Anti-Inflamma aspirin AdvReac Verified 10/30/16 15:52 Medications: Current Medications Albuterol/Ipratropium (Duoneb) 3 ml NEB [id number] [facility] Last Admin: 03/29/18 10:01 Dose: 3 ml Carvedilol (Coreg) 25 mg PO BID [facility] Last Admin: 03/29/18 09:08 Dose: 25 mg Enoxaparin Sodium (Lovenox) 40 mg SC 0900 [facility] Last Admin: 03/29/18 09:08 Dose: 40 mg Furosemide (Lasix) 40 mg SLOW IVP DAILY [facility] Last Admin: 03/29/18 09:08 Dose: 40 mg Hydralazine HCl (Apresoline) 10 mg SLOW IVP Q4H PRN PRN Reason: SBP Greater Than 170 Last Admin: 03/22/18 09:55 Dose: 10 mg Levetiracetam 500 mg/ Device 100 mls @ 200 mls/hr IVPB BID [facility] Last Admin: 03/29/18 09:51 Dose: 100 mls Potassium Chloride 40 meq/ (Sodium Chloride) 270 mls @ 135 mls/hr IVPB ASDIR PRN PRN Reason: FOR SERUM K+ 2.5 - 3.5 Potassium Chloride 40 meq/ (Device) 100 mls @ 50 mls/hr IVPB ASDIR PRN PRN Reason: FOR SERUM K+ 2.5 - 3.5 Last Admin: 03/26/18 10:38 Dose: 100 mls Magnesium Sulfate 1 gm/ Sodium (Chloride) 102 mls @ 102 mls/hr IV PRN PRN PRN Reason: MAG LEVEL 1.4 - 2.0 Last Admin: 03/18/18 13:00 Dose: 102 mls Magnesium Sulfate 2 gm/ Device 100 mls @ 100 mls/hr IVPB ASDIR PRN PRN Reason: MAGNESIUM < 1.4 Potassium Phosphate 9 mmol/ (Sodium Chloride) 103 mls @ 25.75 mls/hr IVPB ASDIR PRN PRN Reason: Phosphate 1.0-1.8 Potassium Phosphate 12 mmol/ (Sodium Chloride) 254 mls @ 63.5 mls/hr IV ASDIR PRN PRN Reason: Serum phosphate 0.5-0.9 Potassium Phosphate 15 mmol/ (Sodium Chloride) 255 mls @ 63.75 mls/hr IV ASDIR PRN PRN Reason: Serum Phos < 0.5 Ceftriaxone Sodium 2 gm/ (Sodium Chloride) 100 mls @ 200 mls/hr IVPB Q12HR [facility] Last Admin: 03/29/18 09:04 Dose: 100 mls Fluconazole/Sodium Chloride 100 mg/ Miscellaneous Medication 1 each/ Device 50 mls @ 100 mls/hr IVPB 1400 [facility] Last Admin: 03/28/18 15:12 Dose: 50 mls Losartan Potassium (Cozaar) 100 mg PO DAILY [facility] Last Admin: 03/29/18 09:51 Dose: 100 mg Magnesium Oxide (Magnesium Oxide) 400 mg PO BIDPRN PRN PRN Reason: FOR SERUM MAG 1.4 - 2.0 Magnesium Oxide (Magnesium Oxide) 800 mg PO PRN PRN PRN Reason: FOR SERUM MAG < 1.4 Methylprednisolone Sodium Succinate (Solu-Medrol) 40 mg IVP Q6HR [facility] Last Admin: 03/29/18 12:17 Dose: 40 mg Miscellaneous Medication (Phos-Nak) 1 pkt PO TIDPRN PRN PRN Reason: FOR PHOS LEVEL 1.0 - 1.8 Miscellaneous Medication (Phos-Nak) 2 pkt PO TIDPRN PRN PRN Reason: FOR PHOS LEVEL 0.5 - 1.0 Morphine Sulfate (Morphine) 4 mg SLOW IVP Q1H PRN PRN Reason: Breakthrough Pain/AGITATION Last Admin: 03/28/18 01:15 Dose: 4 mg Ondansetron HCl (Zofran) 4 mg IVP Q6H PRN PRN Reason: Nausea/Vomiting Pantoprazole Sodium (Protonix) 40 mg IVP DAILY [facility] Last Admin: 03/29/18 09:07 Dose: 40 mg Potassium Chloride (K-Dur) 40 meq PO ASDIR PRN PRN Reason: FOR SERUM K+ 2.5 - 3.5 Last Admin: 03/20/18 11:18 Dose: 40 meq Potassium Chloride (Klor-Con) 40 meq PER TUBE ASDIR PRN PRN Reason: FOR SERUM K+ 2.5-3.5 Last Admin: 03/22/18 08:14 Dose: 40 meq Scopolamine (Transderm Scop) 1.5 mg TD Q3D [facility] Last Admin: 03/27/18 15:55 Dose: 1.5 mg Sodium Chloride (Flush - Normal Saline) 10 ml IVF Q12HR [facility] Last Admin: 03/29/18 09:07 Dose: 10 ml Sodium Chloride (Flush - Normal Saline) 10 ml IVF PRN PRN PRN Reason: Saline Flush
[2018-03-29] MEDS ORDERED: Bisacodyl 5 MG TAB PO PRN (14:19)
[2018-03-29] MEDS ORDERED: Bisacodyl 10 MG SUPP PR PRN (14:19)
[2018-03-29] MEDS: Fluconazole In NaCl,Iso-Osm 100 MG, Admixture Fee 1 EACH in Premix Bag 1 BAG IVPB SCH (15:06)
--- NOTE | 2018-03-29 20:06 | PRG ---
DATE OF SERVICE: 03/29/2018 SUBJECTIVE: Yamile Black still had no air leak this morning. OBJECTIVE: GENERAL: She is awake and alert. Her minute volume was only 7 liters a minute. She was in no distr ess. LUNGS: Clear. HEART: Regular rhythm. ABDOMEN: Soft. EXTREMITIES: Without asymmetry. NEUROLOGIC: Grossly nonfocal. Chest radiograph this remarkable for atelectasis changes, right more than left base. LABORATORY DATA: White count 12.7, hemoglobin 10.0, platelets 267. Sodium 141, potassium 4.1, chlor kayla 106, bicarb 29, BUN 39, creatinine 0.74. Blood gases are not being done anymore. I felt she was a candidate for extubation. Bronchoscope was then at the bedside and a percutaneous t racheostomy tray was at the bedside. She subsequently has been extubated without difficulty. She has had no post-extubation respiratory d istress or stridor. I suspect this was a size 8 endotracheal tube combined with a small neck/small glottis. stay in the ICU for now. Critical care time was 30 minutes.
--- NOTE | 2018-03-30 11:04 | PRG ---
DATE OF SERVICE: 03/30/2018 SUBJECTIVE: Ms. Black is awake and alert. She is in no distress. She is not having any stridor. She is complaining of some mild left lower quadrant discomfort. PHYSICAL EXAMINATION: VITAL SIGNS: Reported been stable. LUNGS: Clear. HEART: Regular rhythm. ABDOMEN: Soft, only minimally tender in the left lower quadrant. EXTREMITIES: Without edema. She moves all 4 extremities equally. IMPRESSION AND PLAN: Status post mechanical ventilation for bacterial meningitis with streptococcus pneumonia isolated from her blood. She remains on Rocephin. We will continue with current care. We will switch to p.o. medications and will be guided by Infectious Disease.
[2018-03-30] MEDS ORDERED: Carvedilol 6.25 MG TAB PO SCH (11:15)
[2018-03-30] MEDS: cefTRIAXone\\ROCEPHIN 2 GM in Sodium Chloride 0.9% 100 ML IVPB SCH ×2 (11:29→20:44)
[2018-03-30] MEDS: Enoxaparin Sodium 40 MG/0.4 ML SYRINGE SC SCH (11:30)
[2018-03-30] MEDS: Furosemide 40 MG/4 ML VIAL SLOW IVP SCH (11:30)
[2018-03-30] MEDS: Losartan 25 MG TAB PO SCH (11:31)
[2018-03-30] MEDS: Pantoprazole 40 MG VIAL IVP SCH (11:33)
[2018-03-30 12:40] LABS: Anion Gap 11 mmol/L (10-20); BUN (Urea Nitrogen) 32 mg/dL (9.8-20.1); Calc. Creatinine Clearance 141 mL/min (70-130); Calcium 8.8 mg/dL (7.8-10.44); Carbon Dioxide 31 mmol/L (23-31); Chloride 105 mmol/L (98-107); Estimated GFR-MDRD Greater than 90; Glucose 152 mg/dL (83-110); Sodium 143 mmol/L (136-145)
[2018-03-30 13:21] LABS: #Eosinphils 0.1 thou/uL (0.0-0.7); #Lymphocytes 0.9 thou/uL (1.20-3.40); #Monocytes 0.3 thou/uL (0.11-0.59); %Basophils 0.2 % (0.0-1.0); %Eosinophils 0.4 % (0.0-10.0); %Monocytes 2.3 % (0.0-10.0); Mean Corpuscular HGB CONC 30.3 g/dL (32.0-36.0); Mean Corpuscular Hemoglobin 26.4 pg (27.0-31.0); Mean Corpuscular Volume 86.9 fL (78.0-98.0); Mean Platelet Volume 8.1 fL (7.4-10.4); Platelet Count 277 thou/uL (130-400); RBC Distribution Width 14.9 % (11.5-14.5); Red Blood Cell (RBC) Count 3.81 mill/uL (4.20-5.40); White Blood Cell (WBC) Count 12.2 thou/uL (4.8-10.8)
[2018-03-30] MEDS ORDERED: Non-Formulary Item 1 EACH (Albuterol Sulfate [Proair Respiclick] 90 MCG) IH PRN (13:27)
--- NOTE | 2018-03-30 14:41 | PDOC.PN ---
- Subjective Encounter Start Date: 03/30/18 Encounter Start Time: 13:25 Subjective: extubated yesterday and feels better.still very weak -: no CP/SOB.no N/V/D - Objective Resuscitation Status: Resuscitation Status FULL:Full Resuscitation MAR Reviewed: Yes Vital Signs & Weight: Vital Signs (12 hours) BP 03/30/18 11:34 150/84 H Weight Admit Weight 300 lb Weight 306 lb 10.608 oz Most Recent Monitor Data Heart Rate from ECG 79 NIBP 162/96 NIBP BP-Mean 118 Respiration from ECG 16 SpO2 98 I&O: 03/29/18 03/30/18 03/31/18 06:59 06:59 06:59 Intake Total 2328 717 200 Output Total 2225 2705 Balance -1987 200 Result Diagrams: 03/29/18 03:21 03/30/18 04:05 Additional Labs: Microbiology 03/23/18 Unknown Stool - Loose C. difficile GDH Antigen & Toxins - Final 03/18/18 10:56 Spinal Fluid - Aspirate Body Fluid Culture - Final 03/17/18 18:21 Nasal swab Influenza Types A,B Direct EIA - Final 03/17/18 17:30 Venous blood - Left Hand Blood Culture - Final NO GROWTH IN 5 DAYS 03/17/18 17:21 Venous blood - Right Arm Blood Culture - Final Streptococcus pneumoniae 03/17/18 17:16 Urine jefferson catheter Urine Culture - Final Klebsiella pneumoniae ssp pneu Phys Exam - Physical Examination Constitutional: NAD HEENT: PERRLA, moist MMs, sclera anicteric, oral pharynx no lesions Neck: no nodes, no JVD, supple, full ROM Respiratory: no wheezing, no rales, no rhonchi, clear to auscultation bilateral Cardiovascular: RRR, no significant murmur, no rub Gastrointestinal: soft, non-tender, no distention, positive bowel sounds Musculoskeletal: no edema, pulses present Neurological: non-focal, normal sensation, moves all 4 limbs B/L LE weakness 4/5 Psychiatric: normal affect, A&O x 3 Skin: no rash Dx/Plan (1) Acute bacterial meningitis Code(s): G00.9 - BACTERIAL MENINGITIS, UNSPECIFIED Status: Acute Comment: Presumed Pneumococcal based upon the bacteremia. Continue Rocephin. (2) Acute respiratory failure with hypoxia Code(s): J96.01 - ACUTE RESPIRATORY FAILURE WITH HYPOXIA Status: Acute Comment: extubated 03/29 (3) Seizures Code(s): R56.9 - UNSPECIFIED CONVULSIONS Status: Acute Comment: EEG without epileptiform activity (4) UTI (urinary tract infection) Status: Acute Comment: Klebsiella (5) Sepsis Code(s): A41.9 - SEPSIS, UNSPECIFIED ORGANISM Status: Resolved Comment: Step bacteremia, Klebsiella UTI, evidence of meningitis on LP. (6) Altered mental status Code(s): R41.82 - ALTERED MENTAL STATUS, UNSPECIFIED Status: Acute Comment: Unclear if she has significant neuro injury from infection/hypoxia. Able to follow simple commands. (7) Dyslipidemia Code(s): E78.5 - HYPERLIPIDEMIA, UNSPECIFIED Status: Chronic (8) HTN (hypertension) Code(s): I10 - ESSENTIAL (PRIMARY) HYPERTENSION Status: Chronic Qualifiers: Hypertension type: essential hypertension Qualified Code(s): I10 - Essential (primary) hypertension (9) Morbid obesity with BMI of 40.0-44.9, adult Code(s): E66.01 - MORBID (SEVERE) OBESITY DUE TO EXCESS CALORIES; Z68.41 - BODY MASS INDEX (BMI) 40.0-44.9, ADULT Status: Chronic Comment: Suspected Grp A Strept as positive in blood - Plan continue antibiotics, PT/OT, out of bed/ambulate, DVT proph w/SCDs taper ABx. Hemodyanmiaclly stable but BP high & HR lower -: Reduce Coreg.cont Cozaar. monitor -: OK to transfer to tele. -: intense OT/PT.SNIF Vs Rehab -: restart Home meds including ASA 81 mg.change keppra to PO * . Review of Systems - Review of Systems Constitutional: weakness, malaise. negative: fever, chills, sweats, other ENT: negative: Ear Pain, Ear Discharge, Nose Pain, Nose Discharge, Nose Congestion, Mouth Pain, Mouth Swelling, Throat Pain, Throat Swelling, Other Respiratory: negative: Cough, Dry, Shortness of Breath, Hemoptysis, SOB with Excertion, Pleuritic Pain, Sputum, Wheezing Cardiovascular: negative: chest pain, palpitations, orthopnea, paroxysmal nocturnal dyspnea, edema, light headedness, other Gastrointestinal: negative: Nausea, Vomiting, Abdominal Pain, Diarrhea, Constipation, Melena, Hematochezia, Other Genitourinary: negative: Dysuria, Frequency, Incontinence, Hematuria, Retention , Other Musculoskeletal: negative: Neck Pain, Shoulder Pain, Arm Pain, Back Pain, Hand Pain, Leg Pain, Foot Pain, Other Neurological: negative: Weakness, Numbness, Incoordination, Change in Speech, Confusion, Seizures, Other - Medications/Allergies Allergies/Adverse Reactions: Allergies Allergy/AdvReac Type Severity Reaction Status Date / Time NSAIDS (Non-Steroidal Allergy Verified 10/30/16 15:52 Anti-Inflamma aspirin AdvReac Verified 10/30/16 15:52 Medications: Current Medications Albuterol/Ipratropium (Duoneb) 3 ml NEB [id number] Last Admin: 03/29/18 22:00 Dose: 3 ml Bisacodyl (Dulcolax) 10 mg PO DAILYPRN PRN PRN Reason: Constipation Bisacodyl (Dulcolax) 10 mg [place] DAILYPRN PRN PRN Reason: Constipation Carvedilol (Coreg) 6.25 mg PO BID [facility] Enoxaparin Sodium (Lovenox) 40 mg SC 0900 [facility] Last Admin: 03/30/18 11:30 Dose: Not Given Furosemide (Lasix) 40 mg SLOW IVP DAILY [facility] Last Admin: 03/30/18 11:30 Dose: Not Given Hydralazine HCl (Apresoline) 10 mg SLOW IVP Q4H PRN PRN Reason: SBP Greater Than 170 Last Admin: 03/22/18 09:55 Dose: 10 mg Levetiracetam 500 mg/ Device 100 mls @ 200 mls/hr IVPB BID [facility] Last Admin: 03/30/18 11:31 Dose: Not Given Potassium Chloride 40 meq/ (Sodium Chloride) 270 mls @ 135 mls/hr IVPB ASDIR PRN PRN Reason: FOR SERUM K+ 2.5 - 3.5 Potassium Chloride 40 meq/ (Device) 100 mls @ 50 mls/hr IVPB ASDIR PRN PRN Reason: FOR SERUM K+ 2.5 - 3.5 Last Admin: 03/26/18 10:38 Dose: 100 mls Magnesium Sulfate 1 gm/ Sodium (Chloride) 102 mls @ 102 mls/hr IV PRN PRN PRN Reason: MAG LEVEL 1.4 - 2.0 Last Admin: 03/18/18 13:00 Dose: 102 mls Magnesium Sulfate 2 gm/ Device 100 mls @ 100 mls/hr IVPB ASDIR PRN PRN Reason: MAGNESIUM < 1.4 Potassium Phosphate 9 mmol/ (Sodium Chloride) 103 mls @ 25.75 mls/hr IVPB ASDIR PRN PRN Reason: Phosphate 1.0-1.8 Potassium Phosphate 12 mmol/ (Sodium Chloride) 254 mls @ 63.5 mls/hr IV ASDIR PRN PRN Reason: Serum phosphate 0.5-0.9 Potassium Phosphate 15 mmol/ (Sodium Chloride) 255 mls @ 63.75 mls/hr IV ASDIR PRN PRN Reason: Serum Phos < 0.5 Ceftriaxone Sodium 2 gm/ (Sodium Chloride) 100 mls @ 200 mls/hr IVPB Q12HR [facility] Last Admin: 03/30/18 11:29 Dose: Not Given Fluconazole/Sodium Chloride 100 mg/ Miscellaneous Medication 1 each/ Device 50 mls @ 100 mls/hr IVPB 1400 [facility] Last Admin: 03/29/18 15:06 Dose: 50 mls Losartan Potassium (Cozaar) 100 mg PO DAILY [facility] Last Admin: 03/30/18 11:31 Dose: Not Given Magnesium Oxide (Magnesium Oxide) 400 mg PO BIDPRN PRN PRN Reason: FOR SERUM MAG 1.4 - 2.0 Magnesium Oxide (Magnesium Oxide) 800 mg PO PRN PRN PRN Reason: FOR SERUM MAG < 1.4 Methylprednisolone Sodium Succinate (Solu-Medrol) 40 mg IVP Q6HR [facility] Last Admin: 03/30/18 11:34 Dose: Not Given Miscellaneous Medication (Phos-Nak) 1 pkt PO TIDPRN PRN PRN Reason: FOR PHOS LEVEL 1.0 - 1.8 Miscellaneous Medication (Phos-Nak) 2 pkt PO TIDPRN PRN PRN Reason: FOR PHOS LEVEL 0.5 - 1.0 Morphine Sulfate (Morphine) 4 mg SLOW IVP Q1H PRN PRN Reason: Breakthrough Pain/AGITATION Last Admin: 03/28/18 01:15 Dose: 4 mg Ondansetron HCl (Zofran) 4 mg IVP Q6H PRN PRN Reason: Nausea/Vomiting Pantoprazole Sodium (Protonix) 40 mg IVP DAILY [facility] Last Admin: 03/30/18 11:33 Dose: Not Given Potassium Chloride (K-Dur) 40 meq PO ASDIR PRN PRN Reason: FOR SERUM K+ 2.5 - 3.5 Last Admin: 03/20/18 11:18 Dose: 40 meq Potassium Chloride (Klor-Con) 40 meq PER TUBE ASDIR PRN PRN Reason: FOR SERUM K+ 2.5-3.5 Last Admin: 03/22/18 08:14 Dose: 40 meq Scopolamine (Transderm Scop) 1.5 mg TD Q3D [facility] Last Admin: 03/27/18 15:55 Dose: 1.5 mg Sodium Chloride (Flush - Normal Saline) 10 ml IVF Q12HR [facility] Last Admin: 03/30/18 11:33 Dose: Not Given Sodium Chloride (Flush - Normal Saline) 10 ml IVF PRN PRN PRN Reason: Saline Flush
[2018-03-30] MEDS ORDERED: PROVENTIL INHALER 6.7 G (200 INHALATIONS) INH PRN ×2 (15:25→15:30)
[2018-03-30] MEDS ORDERED: Non-Formulary Item 1 EACH (Acetaminophen With Codeine [Tylenol With Codeine #4] 1 TABLET) PO SCH (18:00)
[2018-03-30] MEDS: Scopolamine 1.5 mg/72 hour Patch TD SCH (18:09)
[2018-03-30] MEDS: Acetaminophen/Codeine 30-300mg Tablet PO SCH (18:10)
[2018-03-30] MEDS: Fluconazole In NaCl,Iso-Osm 100 MG, Admixture Fee 1 EACH in Premix Bag 1 BAG IVPB SCH (18:34)
[2018-03-30] MEDS: Gabapentin 300 MG CAP PO SCH (20:42)
[2018-03-30] MEDS: DULoxetine 30 MG CAP PO SCH (20:43)
[2018-03-30] MEDS: levETIRAcetam 500 MG TAB PO SCH (20:43)
[2018-03-30] MEDS: Atorvastatin Calcium 20 MG TAB PO SCH (20:44)
[2018-03-30] MEDS: Carvedilol 6.25 MG TAB PO SCH (20:44)
[2018-03-30] MEDS ORDERED: DULoxetine 30 MG CAP PO SCH (21:00)
[2018-03-30] MEDS ORDERED: SIMVASTATIN 40 MG PO SCH (21:00)
[2018-03-30] MEDS ORDERED: Gabapentin 100 MG CAP PO SCH (21:00)
[2018-03-31] MEDS: Acetaminophen/Codeine 30-300mg Tablet PO SCH ×4 (03:17→18:23)
[2018-03-31 06:16] LABS: #Monocytes 0.5 thou/uL (0.11-0.59); #Neutrophils 9.5 thou/uL (1.40-6.50); %Basophils 0.1 % (0.0-1.0); %Eosinophils 0.3 % (0.0-10.0); %Lymphocytes 8.9 % (21.0-51.0); %Monocytes 4.4 % (0.0-10.0); %Neutrophils 86.4 % (42.0-75.0); Mean Corpuscular HGB CONC 30.9 g/dL (32.0-36.0); Mean Corpuscular Hemoglobin 26.8 pg (27.0-31.0); Mean Corpuscular Volume 86.5 fL (78.0-98.0); Mean Platelet Volume 7.6 fL (7.4-10.4); Platelet Count 287 thou/uL (130-400); RBC Distribution Width 14.8 % (11.5-14.5); Red Blood Cell (RBC) Count 3.73 mill/uL (4.20-5.40)
[2018-03-31 06:32] LABS: Anion Gap 12 mmol/L (10-20); BUN (Urea Nitrogen) 32 mg/dL (9.8-20.1); Calc. Creatinine Clearance 143 mL/min (70-130); Calcium 8.4 mg/dL (7.8-10.44); Carbon Dioxide 29 mmol/L (23-31); Chloride 101 mmol/L (98-107); Estimated GFR-MDRD Greater than 90; Glucose 151 mg/dL (83-110); Potassium 3.8 mmol/L (3.5-5.1); Sodium 138 mmol/L (136-145)
[2018-03-31] MEDS ORDERED: Non-Formulary Item 1 EACH (Omeprazole [Omeprazole] 20 MG) PO SCH (09:00)
[2018-03-31] MEDS ORDERED: Non-Formulary Item 1 EACH (Ferrous Sulfate [Ferrous Sulfate] 325 MG) PO SCH (09:00)
[2018-03-31] MEDS: Enoxaparin Sodium 40 MG/0.4 ML SYRINGE SC SCH (10:12)
[2018-03-31] MEDS: Furosemide 40 MG/4 ML VIAL SLOW IVP SCH (10:13)
[2018-03-31] MEDS: cefTRIAXone\\ROCEPHIN 2 GM in Sodium Chloride 0.9% 100 ML IVPB SCH ×2 (10:13→20:48)
[2018-03-31] MEDS: Losartan 25 MG TAB PO SCH (10:14)
[2018-03-31] MEDS: Ferrous Sulfate 325 MG TAB PO SCH (10:19)
[2018-03-31] MEDS: DULoxetine 30 MG CAP PO SCH ×2 (10:19→20:49)
[2018-03-31] MEDS: Carvedilol 6.25 MG TAB PO SCH ×2 (10:19→20:50)
[2018-03-31] MEDS: levETIRAcetam 500 MG TAB PO SCH ×2 (10:19→20:50)
[2018-03-31] MEDS: Multivit, Chewable SF 1 TAB PO SCH (10:20)
[2018-03-31] MEDS ORDERED: Multivit, Chewable SF 1 TAB PO SCH (10:30)
--- NOTE | 2018-03-31 14:14 | PDOC.PN ---
- Subjective Encounter Start Date: 03/31/18 Encounter Start Time: 14:12 Subjective: feels weka but much better -: still w poor appetite.denies yao N/V/D -: RN rep[orts slow HR - Objective Resuscitation Status: Resuscitation Status FULL:Full Resuscitation MAR Reviewed: Yes Vital Signs & Weight: Vital Signs (12 hours) Temp Pulse Resp BP BP Pulse Ox 03/31/18 12:07 98.2 F 59 L 18 149/82 H 03/31/18 10:35 71 16 98 03/31/18 10:19 131/76 03/31/18 07:15 97.8 F 56 L 16 139/66 100 03/31/18 06:45 72 16 98 03/31/18 04:00 98.2 F 55 L 16 146/79 H 97 03/31/18 02:25 60 16 98 Weight Admit Weight 300 lb Weight 310 lb 12.8 oz Most Recent Monitor Data Heart Rate from ECG 79 NIBP 162/96 NIBP BP-Mean 118 Respiration from ECG 16 SpO2 98 I&O: 03/30/18 03/31/18 04/01/18 06:59 06:59 06:59 Intake Total 717 630 Output Total 2705 970 Balance -1987 Result Diagrams: 03/31/18 05:38 03/31/18 05:38 Additional Labs: Microbiology 03/23/18 Unknown Stool - Loose C. difficile GDH Antigen & Toxins - Final 03/18/18 10:56 Spinal Fluid - Aspirate Body Fluid Culture - Final 03/17/18 18:21 Nasal swab Influenza Types A,B Direct EIA - Final 03/17/18 17:30 Venous blood - Left Hand Blood Culture - Final NO GROWTH IN 5 DAYS 03/17/18 17:21 Venous blood - Right Arm Blood Culture - Final Streptococcus pneumoniae 03/17/18 17:16 Urine jefferson catheter Urine Culture - Final Klebsiella pneumoniae ssp pneu Phys Exam - Physical Examination Constitutional: NAD sitting up in chair,watching TV HEENT: PERRLA, moist MMs, sclera anicteric, oral pharynx no lesions Neck: no nodes, no JVD, supple, full ROM Respiratory: no wheezing, no rales, no rhonchi, clear to auscultation bilateral Cardiovascular: RRR, no significant murmur, no rub Gastrointestinal: soft, non-tender, no distention, positive bowel sounds Musculoskeletal: no edema, pulses present Neurological: non-focal, normal sensation, moves all 4 limbs Psychiatric: normal affect, A&O x 3 Skin: no rash Dx/Plan (1) Sinus bradycardia Code(s): R00.1 - BRADYCARDIA, UNSPECIFIED Status: Acute Comment: Likley due to BB. (2) Acute bacterial meningitis Code(s): G00.9 - BACTERIAL MENINGITIS, UNSPECIFIED Status: Acute Comment: Presumed Pneumococcal based upon the bacteremia. Continue Rocephin. (3) Acute respiratory failure with hypoxia Code(s): J96.01 - ACUTE RESPIRATORY FAILURE WITH HYPOXIA Status: Acute Comment: extubated 03/29 (4) Seizures Code(s): R56.9 - UNSPECIFIED CONVULSIONS Status: Acute Comment: EEG without epileptiform activity (5) UTI (urinary tract infection) Status: Acute Comment: Klebsiella (6) Sepsis Code(s): A41.9 - SEPSIS, UNSPECIFIED ORGANISM Status: Resolved Comment: Step bacteremia, Klebsiella UTI, evidence of meningitis on LP. (7) Altered mental status Code(s): R41.82 - ALTERED MENTAL STATUS, UNSPECIFIED Status: Acute Comment: Unclear if she has significant neuro injury from infection/hypoxia. Able to follow simple commands. (8) Dyslipidemia Code(s): E78.5 - HYPERLIPIDEMIA, UNSPECIFIED Status: Chronic (9) HTN (hypertension) Code(s): I10 - ESSENTIAL (PRIMARY) HYPERTENSION Status: Chronic Qualifiers: Hypertension type: essential hypertension Qualified Code(s): I10 - Essential (primary) hypertension (10) Morbid obesity with BMI of 40.0-44.9, adult Code(s): E66.01 - MORBID (SEVERE) OBESITY DUE TO EXCESS CALORIES; Z68.41 - BODY MASS INDEX (BMI) 40.0-44.9, ADULT Status: Chronic Comment: Suspected Grp A Strept as positive in blood - Plan continue antibiotics, PT/OT, respiratory therapy, incentive spirometry, out of bed/ambulate, DVT proph w/SCDs Pt intolerant of BB. calli reduce dose & if bradycardia persits-will stop -: BP controlled on Cozaar/cont -: SNIF eval. -: ABx per ID. -: Hemodynamically stable * . Review of Systems - Review of Systems Constitutional: weakness. negative: fever, chills, sweats, malaise, other ENT: negative: Ear Pain, Ear Discharge, Nose Pain, Nose Discharge, Nose Congestion, Mouth Pain, Mouth Swelling, Throat Pain, Throat Swelling, Other Respiratory: negative: Cough, Dry, Shortness of Breath, Hemoptysis, SOB with Excertion, Pleuritic Pain, Sputum, Wheezing Cardiovascular: negative: chest pain, palpitations, orthopnea, paroxysmal nocturnal dyspnea, edema, light headedness, other Gastrointestinal: negative: Nausea, Vomiting, Abdominal Pain, Diarrhea, Constipation, Melena, Hematochezia, Other Genitourinary: negative: Dysuria, Frequency, Incontinence, Hematuria, Retention , Other Musculoskeletal: negative: Neck Pain, Shoulder Pain, Arm Pain, Back Pain, Hand Pain, Leg Pain, Foot Pain, Other Neurological: negative: Weakness, Numbness, Incoordination, Change in Speech, Confusion, Seizures, Other - Medications/Allergies Allergies/Adverse Reactions: Allergies Allergy/AdvReac Type Severity Reaction Status Date / Time NSAIDS (Non-Steroidal Allergy Verified 10/30/16 15:52 Anti-Inflamma aspirin AdvReac Verified 10/30/16 15:52 Medications: Current Medications Acetaminophen/Codeine Phosphate (Tylenol #3) 1 tab PO Q6HR [facility] Last Admin: 03/31/18 12:30 Dose: Not Given Albuterol Sulfate (Proventil Hfa) 1 puff INH Q6H PRN PRN Reason: SOB Albuterol/Ipratropium (Duoneb) 3 ml NEB [id number] [facility] Last Admin: 03/31/18 14:11 Dose: 3 ml Aspirin (Aspirin Chewable) 81 mg PO DAILY [facility] Last Admin: 03/31/18 10:19 Dose: 81 mg Atorvastatin Calcium (Lipitor) 20 mg PO HS [facility] Last Admin: 03/30/18 20:44 Dose: 20 mg Bisacodyl (Dulcolax) 10 mg PO DAILYPRN PRN PRN Reason: Constipation Bisacodyl (Dulcolax) 10 mg [place] DAILYPRN PRN PRN Reason: Constipation Carvedilol (Coreg) 6.25 mg PO BID [facility] Last Admin: 03/31/18 10:19 Dose: Not Given Duloxetine HCl (Cymbalta) 30 mg PO BID [facility] Last Admin: 03/31/18 10:19 Dose: 30 mg Enoxaparin Sodium (Lovenox) 40 mg SC 0900 [facility] Last Admin: 03/31/18 10:12 Dose: 40 mg Ferrous Sulfate (Feosol) 325 mg PO DAILY [facility] Last Admin: 03/31/18 10:19 Dose: 325 mg Furosemide (Lasix) 40 mg SLOW IVP DAILY [facility] Last Admin: 03/31/18 10:13 Dose: 40 mg Gabapentin (Neurontin) 900 mg PO HS [facility] Last Admin: 03/30/18 20:42 Dose: 900 mg Hydralazine HCl (Apresoline) 10 mg SLOW IVP Q4H PRN PRN Reason: SBP Greater Than 170 Last Admin: 03/22/18 09:55 Dose: 10 mg Potassium Chloride 40 meq/ (Sodium Chloride) 270 mls @ 135 mls/hr IVPB ASDIR PRN PRN Reason: FOR SERUM K+ 2.5 - 3.5 Potassium Chloride 40 meq/ (Device) 100 mls @ 50 mls/hr IVPB ASDIR PRN PRN Reason: FOR SERUM K+ 2.5 - 3.5 Last Admin: 03/26/18 10:38 Dose: 100 mls Magnesium Sulfate 1 gm/ Sodium (Chloride) 102 mls @ 102 mls/hr IV PRN PRN PRN Reason: MAG LEVEL 1.4 - 2.0 Last Admin: 03/18/18 13:00 Dose: 102 mls Magnesium Sulfate 2 gm/ Device 100 mls @ 100 mls/hr IVPB ASDIR PRN PRN Reason: MAGNESIUM < 1.4 Potassium Phosphate 9 mmol/ (Sodium Chloride) 103 mls @ 25.75 mls/hr IVPB ASDIR PRN PRN Reason: Phosphate 1.0-1.8 Potassium Phosphate 12 mmol/ (Sodium Chloride) 254 mls @ 63.5 mls/hr IV ASDIR PRN PRN Reason: Serum phosphate 0.5-0.9 Potassium Phosphate 15 mmol/ (Sodium Chloride) 255 mls @ 63.75 mls/hr IV ASDIR PRN PRN Reason: Serum Phos < 0.5 Ceftriaxone Sodium 2 gm/ (Sodium Chloride) 100 mls @ 200 mls/hr IVPB Q12HR [facility] Last Admin: 03/31/18 10:13 Dose: 100 mls Fluconazole/Sodium Chloride 100 mg/ Miscellaneous Medication 1 each/ Device 50 mls @ 100 mls/hr IVPB 1800 [facility] Last Admin: 03/30/18 18:34 Dose: 50 mls Levetiracetam (Keppra) 500 mg PO BID [facility] Last Admin: 03/31/18 10:19 Dose: 500 mg Losartan Potassium (Cozaar) 100 mg PO DAILY [facility] Last Admin: 03/31/18 10:14 Dose: 100 mg Magnesium Oxide (Magnesium Oxide) 400 mg PO BIDPRN PRN PRN Reason: FOR SERUM MAG 1.4 - 2.0 Magnesium Oxide (Magnesium Oxide) 800 mg PO PRN PRN PRN Reason: FOR SERUM MAG < 1.4 Methylprednisolone Sodium Succinate (Solu-Medrol) 40 mg IVP Q6HR [facility] Last Admin: 03/31/18 12:34 Dose: 40 mg Miscellaneous Medication (Phos-Nak) 1 pkt PO TIDPRN PRN PRN Reason: FOR PHOS LEVEL 1.0 - 1.8 Miscellaneous Medication (Phos-Nak) 2 pkt PO TIDPRN PRN PRN Reason: FOR PHOS LEVEL 0.5 - 1.0 Morphine Sulfate (Morphine) 4 mg SLOW IVP Q1H PRN PRN Reason: Breakthrough Pain/AGITATION Last Admin: 03/28/18 01:15 Dose: 4 mg Multivitamins (Multivit, Chewable Sf) 1 tab PO DAILY [facility] Last Admin: 03/31/18 10:20 Dose: Not Given Ondansetron HCl (Zofran) 4 mg IVP Q6H PRN PRN Reason: Nausea/Vomiting Pantoprazole Sodium (Protonix) 40 mg PO DAILY [facility] Last Admin: 03/31/18 10:19 Dose: 40 mg Potassium Chloride (K-Dur) 40 meq PO ASDIR PRN PRN Reason: FOR SERUM K+ 2.5 - 3.5 Last Admin: 03/20/18 11:18 Dose: 40 meq Potassium Chloride (Klor-Con) 40 meq PER TUBE ASDIR PRN PRN Reason: FOR SERUM K+ 2.5-3.5 Last Admin: 03/22/18 08:14 Dose: 40 meq Scopolamine (Transderm Scop) 1.5 mg TD Q3D [facility] Last Admin: 03/30/18 18:09 Dose: 1.5 mg Sodium Chloride (Flush - Normal Saline) 10 ml IVF Q12HR [facility] Last Admin: 03/31/18 10:13 Dose: 10 ml Sodium Chloride (Flush - Normal Saline) 10 ml IVF PRN PRN PRN Reason: Saline Flush
[2018-03-31] MEDS: hydrALAZINE 20 MG/ML VIAL SLOW IVP PRN (16:57)
--- NOTE | 2018-03-31 18:10 | PRG ---
DATE OF SERVICE: 03/31/2018 SERVICE: Pulmonary Medicine. INTERVAL HISTORY: The patient is doing outstanding from a respiratory standpoint. She has been weaned down to room air. She denies any chest pain, fevers, chills, nausea or vomiting. Otherwise, there has been no interval change to her condition. Her strength is improving day by day. She is tolerating some p.o. OBJECTIVE: VITAL SIGNS: Afebrile, pulse 52, blood pressure 186/93, respirations 18, saturation 100% on 1.5 liters nasal cannula. GENERAL: The patient is awake, alert, no apparent distress. LUNGS: Decent air entry. I do not appreciate any crackles or rhonchi. HEART: Normal rate, regular. ABDOMEN: Soft, nontender, nondistended. Bowel sounds are positive. MUSCULOSKELETAL: No cyanosis or clubbing. There is no pitting in the bilateral lower extremities. NEUROLOGIC: Grossly nonfocal. LABORATORY DATA: WBC 11.0, hemoglobin 10.0, platelets 287,000. Basic metabolic profile is completely unremarkable and has been stable for several days. Her sodium has improved, her potassium is 3.8. ASSESSMENT: 1. Acute hypoxic respiratory failure, resolved. 2. Meningitis secondary to Streptococcus, resolving. 3. Bradycardia secondary to medication effect (beta citlali). DISCUSSION AND PLAN: Steroids and Lasix will be converted to oral medications. I will back off of her DuoNeb interval. At this point, the patient has no further requirements for inpatient Pulmonary or Critical Care opinion. As such , we will sign off. If she develops increasing respiratory difficulties or mental status changes, please notify us. TREVOR
[2018-03-31] MEDS ORDERED: Fluconazole In NaCl,Iso-Osm 100 MG, Admixture Fee 1 EACH in Premix Bag 1 BAG IVPB SCH (18:30)
[2018-03-31] MEDS: Fluconazole In NaCl,Iso-Osm 100 MG, Admixture Fee 1 EACH in Premix Bag 1 BAG IVPB SCH (19:47)
[2018-03-31] MEDS: Gabapentin 300 MG CAP PO SCH (20:49)
[2018-03-31] MEDS: Atorvastatin Calcium 20 MG TAB PO SCH (20:49)
[2018-04-01] MEDS: Acetaminophen/Codeine 30-300mg Tablet PO SCH ×4 (00:22→18:14)
[2018-04-01 05:55] LABS: Anion Gap 9 mmol/L (10-20); BUN (Urea Nitrogen) 29 mg/dL (9.8-20.1); Calc. Creatinine Clearance 155 mL/min (70-130); Calcium 8.3 mg/dL (7.8-10.44); Carbon Dioxide 29 mmol/L (23-31); Chloride 100 mmol/L (98-107); Estimated GFR-MDRD Greater than 90; Glucose 111 mg/dL (83-110); Potassium 3.4 mmol/L (3.5-5.1); Sodium 135 mmol/L (136-145)
[2018-04-01 06:26] LABS: #Lymphocytes 1.5 thou/uL (1.20-3.40); #Monocytes 0.8 thou/uL (0.11-0.59); #Neutrophils 8.9 thou/uL (1.40-6.50); %Basophils 0.2 % (0.0-1.0); %Eosinophils 0.3 % (0.0-10.0); %Lymphocytes 13.2 % (21.0-51.0); %Monocytes 6.7 % (0.0-10.0); %Neutrophils 79.6 % (42.0-75.0); Hemoglobin 10.5 g/dL (12.0-16.0); Mean Corpuscular HGB CONC 31.2 g/dL (32.0-36.0); Mean Corpuscular Hemoglobin 26.8 pg (27.0-31.0); Mean Corpuscular Volume 85.9 fL (78.0-98.0); Mean Platelet Volume 7.8 fL (7.4-10.4); PLT Morphology Comment Appears Adequate; Platelet Count 276 thou/uL (130-400); RBC Distribution Width 15.1 % (11.5-14.5); White Blood Cell (WBC) Count 11.1 thou/uL (4.8-10.8)
[2018-04-01] MEDS ORDERED: Potassium Chloride 20 MEQ TAB PO SCH (08:15)
[2018-04-01] MEDS: Ferrous Sulfate 325 MG TAB PO SCH (08:50)
[2018-04-01] MEDS: predniSONE 20 MG TAB PO SCH (08:56)
[2018-04-01] MEDS: DULoxetine 30 MG CAP PO SCH ×2 (08:56→20:14)
[2018-04-01] MEDS: Furosemide 40 MG TAB PO SCH (08:56)
[2018-04-01] MEDS: Multivit, Chewable SF 1 TAB PO SCH (08:57)
[2018-04-01] MEDS: levETIRAcetam 500 MG TAB PO SCH ×2 (08:57→20:14)
[2018-04-01] MEDS: Losartan 25 MG TAB PO SCH (08:57)
[2018-04-01] MEDS: Enoxaparin Sodium 40 MG/0.4 ML SYRINGE SC SCH (08:58)
[2018-04-01] MEDS: Carvedilol 6.25 MG TAB PO SCH (08:58)
[2018-04-01] MEDS: cefTRIAXone\\ROCEPHIN 2 GM in Sodium Chloride 0.9% 100 ML IVPB SCH ×2 (08:58→21:34)
[2018-04-01] MEDS: Potassium Chloride 20 MEQ TAB PO PRN (10:03)
--- NOTE | 2018-04-01 11:03 | PDOC.PN ---
- Subjective Encounter Start Date: 04/01/18 Encounter Start Time: 11:02 Subjective: feels better but still weak. not walked yet -: wants to go home & not rehab.encouraged to discuss w family -: poor appetite - Objective Resuscitation Status: Resuscitation Status FULL:Full Resuscitation MAR Reviewed: Yes Vital Signs & Weight: Vital Signs (12 hours) Temp Pulse Resp BP Pulse Ox 04/01/18 10:53 64 16 96 04/01/18 07:48 95 04/01/18 07:45 97.7 F 51 L 18 147/80 H 95 04/01/18 06:58 53 L 18 98 04/01/18 03:00 97.6 F 56 L 18 140/69 97 04/01/18 02:05 53 L 18 100 Weight Admit Weight 300 lb Weight 312 lb 3.2 oz Most Recent Monitor Data Heart Rate from ECG 79 NIBP 162/96 NIBP BP-Mean 118 Respiration from ECG 16 SpO2 98 I&O: 03/31/18 04/01/18 04/02/18 06:59 06:59 06:59 Intake Total 630 980 Output Total 970 1300 Balance -340 -320 Result Diagrams: 04/01/18 05:04 04/01/18 05:04 Phys Exam - Physical Examination Constitutional: NAD HEENT: PERRLA, moist MMs, sclera anicteric, oral pharynx no lesions Neck: no nodes, no JVD, supple, full ROM Respiratory: no wheezing, no rales, no rhonchi, clear to auscultation bilateral Cardiovascular: RRR, no significant murmur, no rub Gastrointestinal: soft, non-tender, no distention, positive bowel sounds Musculoskeletal: no edema, pulses present Neurological: non-focal, normal sensation, moves all 4 limbs Psychiatric: normal affect, A&O x 3 Skin: no rash Dx/Plan (1) Sinus bradycardia Code(s): R00.1 - BRADYCARDIA, UNSPECIFIED Status: Acute Comment: Likley due to BB. (2) Acute bacterial meningitis Code(s): G00.9 - BACTERIAL MENINGITIS, UNSPECIFIED Status: Acute Comment: Presumed Pneumococcal based upon the bacteremia. Continue Rocephin. (3) Acute respiratory failure with hypoxia Code(s): J96.01 - ACUTE RESPIRATORY FAILURE WITH HYPOXIA Status: Acute Comment: extubated 03/29 (4) Seizures Code(s): R56.9 - UNSPECIFIED CONVULSIONS Status: Acute Comment: EEG without epileptiform activity (5) UTI (urinary tract infection) Status: Acute Comment: Klebsiella (6) Sepsis Code(s): A41.9 - SEPSIS, UNSPECIFIED ORGANISM Status: Resolved Comment: Step bacteremia, Klebsiella UTI, evidence of meningitis on LP. (7) Altered mental status Code(s): R41.82 - ALTERED MENTAL STATUS, UNSPECIFIED Status: Acute Comment: Unclear if she has significant neuro injury from infection/hypoxia. Able to follow simple commands. (8) Dyslipidemia Code(s): E78.5 - HYPERLIPIDEMIA, UNSPECIFIED Status: Chronic (9) HTN (hypertension) Code(s): I10 - ESSENTIAL (PRIMARY) HYPERTENSION Status: Chronic Qualifiers: Hypertension type: essential hypertension Qualified Code(s): I10 - Essential (primary) hypertension (10) Morbid obesity with BMI of 40.0-44.9, adult Code(s): E66.01 - MORBID (SEVERE) OBESITY DUE TO EXCESS CALORIES; Z68.41 - BODY MASS INDEX (BMI) 40.0-44.9, ADULT Status: Chronic Comment: Suspected Grp A Strept as positive in blood - Plan continue antibiotics, PT/OT, respiratory therapy, incentive spirometry, out of bed/ambulate, DVT proph w/SCDs Remains bradycardic without coreg.will stop coreg and add amlodipine for BP -: Rehab on Dc.Pt will do poorly at Home W HH given severe deconditioning -: Change ABx to po on DC.defer to ID -: meds as below.OT.PT * . Review of Systems - Review of Systems Constitutional: weakness, malaise. negative: fever, chills, sweats, other Respiratory: negative: Cough, Dry, Shortness of Breath, Hemoptysis, SOB with Excertion, Pleuritic Pain, Sputum, Wheezing Cardiovascular: negative: chest pain, palpitations, orthopnea, paroxysmal nocturnal dyspnea, edema, light headedness, other Gastrointestinal: negative: Nausea, Vomiting, Abdominal Pain, Diarrhea, Constipation, Melena, Hematochezia, Other Genitourinary: negative: Dysuria, Frequency, Incontinence, Hematuria, Retention , Other Musculoskeletal: negative: Neck Pain, Shoulder Pain, Arm Pain, Back Pain, Hand Pain, Leg Pain, Foot Pain, Other Skin: negative: Rash, Lesions, Stanislav, Bruising, Other Neurological: negative: Weakness, Numbness, Incoordination, Change in Speech, Confusion, Seizures, Other - Medications/Allergies Allergies/Adverse Reactions: Allergies Allergy/AdvReac Type Severity Reaction Status Date / Time NSAIDS (Non-Steroidal Allergy Verified 10/30/16 15:52 Anti-Inflamma aspirin AdvReac Verified 10/30/16 15:52 Medications: Current Medications Acetaminophen/Codeine Phosphate (Tylenol #3) 1 tab PO Q6HR [facility] Last Admin: 04/01/18 09:57 Dose: Not Given Albuterol Sulfate (Proventil Hfa) 1 puff INH Q6H PRN PRN Reason: SOB Albuterol/Ipratropium (Duoneb) 3 ml NEB [id number] [facility] Last Admin: 04/01/18 10:53 Dose: 3 ml Aspirin (Aspirin Chewable) 81 mg PO DAILY [facility] Last Admin: 04/01/18 08:56 Dose: 81 mg Atorvastatin Calcium (Lipitor) 20 mg PO HS [facility] Last Admin: 03/31/18 20:49 Dose: 20 mg Bisacodyl (Dulcolax) 10 mg PO DAILYPRN PRN PRN Reason: Constipation Bisacodyl (Dulcolax) 10 mg [place] DAILYPRN PRN PRN Reason: Constipation Carvedilol (Coreg) 3.25 mg PO BID [facility] Last Admin: 04/01/18 08:58 Dose: Not Given Duloxetine HCl (Cymbalta) 30 mg PO BID [facility] Last Admin: 04/01/18 08:56 Dose: 30 mg Enoxaparin Sodium (Lovenox) 40 mg SC 0900 [facility] Last Admin: 04/01/18 08:58 Dose: 40 mg Ferrous Sulfate (Feosol) 325 mg PO DAILY [facility] Last Admin: 04/01/18 08:50 Dose: 325 mg Furosemide (Lasix) 40 mg PO DAILY-AC [facility] Last Admin: 04/01/18 08:56 Dose: 40 mg Gabapentin (Neurontin) 900 mg PO HS [facility] Last Admin: 03/31/18 20:49 Dose: 900 mg Hydralazine HCl (Apresoline) 10 mg SLOW IVP Q4H PRN PRN Reason: SBP Greater Than 170 Last Admin: 03/31/18 16:57 Dose: 10 mg Potassium Chloride 40 meq/ (Sodium Chloride) 270 mls @ 135 mls/hr IVPB ASDIR PRN PRN Reason: FOR SERUM K+ 2.5 - 3.5 Potassium Chloride 40 meq/ (Device) 100 mls @ 50 mls/hr IVPB ASDIR PRN PRN Reason: FOR SERUM K+ 2.5 - 3.5 Last Admin: 03/26/18 10:38 Dose: 100 mls Magnesium Sulfate 1 gm/ Sodium (Chloride) 102 mls @ 102 mls/hr IV PRN PRN PRN Reason: MAG LEVEL 1.4 - 2.0 Last Admin: 03/18/18 13:00 Dose: 102 mls Magnesium Sulfate 2 gm/ Device 100 mls @ 100 mls/hr IVPB ASDIR PRN PRN Reason: MAGNESIUM < 1.4 Potassium Phosphate 9 mmol/ (Sodium Chloride) 103 mls @ 25.75 mls/hr IVPB ASDIR PRN PRN Reason: Phosphate 1.0-1.8 Potassium Phosphate 12 mmol/ (Sodium Chloride) 254 mls @ 63.5 mls/hr IV ASDIR PRN PRN Reason: Serum phosphate 0.5-0.9 Potassium Phosphate 15 mmol/ (Sodium Chloride) 255 mls @ 63.75 mls/hr IV ASDIR PRN PRN Reason: Serum Phos < 0.5 Ceftriaxone Sodium 2 gm/ (Sodium Chloride) 100 mls @ 200 mls/hr IVPB Q12HR [facility] Last Admin: 04/01/18 08:58 Dose: 100 mls Fluconazole/Sodium Chloride 100 mg/ Miscellaneous Medication 1 each/ Device 50 mls @ 100 mls/hr IVPB 1999 [facility] Last Admin: 03/31/18 19:47 Dose: 50 mls Levetiracetam (Keppra) 500 mg PO BID [facility] Last Admin: 04/01/18 08:57 Dose: 500 mg Losartan Potassium (Cozaar) 100 mg PO DAILY [facility] Last Admin: 04/01/18 08:57 Dose: 100 mg Magnesium Oxide (Magnesium Oxide) 400 mg PO BIDPRN PRN PRN Reason: FOR SERUM MAG 1.4 - 2.0 Magnesium Oxide (Magnesium Oxide) 800 mg PO PRN PRN PRN Reason: FOR SERUM MAG < 1.4 Miscellaneous Medication (Phos-Nak) 1 pkt PO TIDPRN PRN PRN Reason: FOR PHOS LEVEL 1.0 - 1.8 Miscellaneous Medication (Phos-Nak) 2 pkt PO TIDPRN PRN PRN Reason: FOR PHOS LEVEL 0.5 - 1.0 Morphine Sulfate (Morphine) 4 mg SLOW IVP Q1H PRN PRN Reason: Breakthrough Pain/AGITATION Last Admin: 03/28/18 01:15 Dose: 4 mg Multivitamins (Multivit, Chewable Sf) 1 tab PO DAILY [facility] Last Admin: 04/01/18 08:57 Dose: 1 tab Ondansetron HCl (Zofran) 4 mg IVP Q6H PRN PRN Reason: Nausea/Vomiting Pantoprazole Sodium (Protonix) 40 mg PO DAILY [facility] Last Admin: 04/01/18 08:57 Dose: 40 mg Potassium Chloride (K-Dur) 40 meq PO ASDIR PRN PRN Reason: FOR SERUM K+ 2.5 - 3.5 Last Admin: 04/01/18 10:03 Dose: 40 meq Potassium Chloride (Klor-Con) 40 meq PER TUBE ASDIR PRN PRN Reason: FOR SERUM K+ 2.5-3.5 Last Admin: 03/22/18 08:14 Dose: 40 meq Prednisone (Prednisone) 20 mg PO QAM-WM [facility] Last Admin: 04/01/18 08:56 Dose: 20 mg Scopolamine (Transderm Scop) 1.5 mg TD Q3D [facility] Last Admin: 03/30/18 18:09 Dose: 1.5 mg Sodium Chloride (Flush - Normal Saline) 10 ml IVF Q12HR [facility] Last Admin: 04/01/18 10:04 Dose: 10 ml Sodium Chloride (Flush - Normal Saline) 10 ml IVF PRN PRN PRN Reason: Saline Flush
[2018-04-01] MEDS: Fluconazole In NaCl,Iso-Osm 100 MG, Admixture Fee 1 EACH in Premix Bag 1 BAG IVPB SCH ×2 (11:10→20:13)
[2018-04-01] MEDS ORDERED: Amlodipine 10 MG TAB PO SCH (11:15)
[2018-04-01] MEDS: Gabapentin 300 MG CAP PO SCH (20:14)
[2018-04-01] MEDS: Atorvastatin Calcium 20 MG TAB PO SCH (20:14)
[2018-04-02] MEDS: Acetaminophen/Codeine 30-300mg Tablet PO SCH ×4 (02:09→17:10)
[2018-04-02 06:09] LABS: Anion Gap 13 mmol/L (10-20); BUN (Urea Nitrogen) 22 mg/dL (9.8-20.1); Calc. Creatinine Clearance 159 mL/min (70-130); Calcium 8.3 mg/dL (7.8-10.44); Carbon Dioxide 24 mmol/L (23-31); Chloride 101 mmol/L (98-107); Estimated GFR-MDRD Greater than 90; Glucose 82 mg/dL (83-110); Potassium 3.9 mmol/L (3.5-5.1); Sodium 134 mmol/L (136-145)
[2018-04-02 06:32] LABS: Band 3 % (5-11); Hemoglobin 10.8 g/dL (12.0-16.0); Lymphocytes 17 % (21-51); MDiff Complete? YES; Mean Corpuscular Hemoglobin 26.7 pg (27.0-31.0); Mean Platelet Volume 8.2 fL (7.4-10.4); Monocytes 4 % (0-10); Myelocyte 2 % (0-0); Neutrophil 74 % (42-75); Platelet Count 237 thou/uL (130-400); RBC Distribution Width 15.3 % (11.5-14.5); Red Blood Cell (RBC) Count 4.06 mill/uL (4.20-5.40)
[2018-04-02] MEDS ORDERED: Amlodipine 10 MG TAB PO SCH (09:00)
[2018-04-02] MEDS: Furosemide 40 MG TAB PO SCH (09:47)
[2018-04-02] MEDS: Amlodipine 5 MG TAB PO SCH (09:48)
[2018-04-02] MEDS: Enoxaparin Sodium 40 MG/0.4 ML SYRINGE SC SCH (09:48)
[2018-04-02] MEDS: Ferrous Sulfate 325 MG TAB PO SCH (09:48)
[2018-04-02] MEDS: cefTRIAXone\\ROCEPHIN 2 GM in Sodium Chloride 0.9% 100 ML IVPB SCH ×2 (09:48→16:25)
[2018-04-02] MEDS: DULoxetine 30 MG CAP PO SCH ×2 (09:48→21:09)
[2018-04-02] MEDS: predniSONE 20 MG TAB PO SCH (09:48)
[2018-04-02] MEDS: levETIRAcetam 500 MG TAB PO SCH ×2 (09:49→21:10)
[2018-04-02] MEDS: Multivit, Chewable SF 1 TAB PO SCH (09:49)
[2018-04-02] MEDS: Losartan 25 MG TAB PO SCH (09:49)
--- NOTE | 2018-04-02 12:18 | PDOC.PN ---
- Subjective Encounter Start Date: 04/02/18 Encounter Start Time: 12:16 Subjective: no new complaints. adamanat to go home but needing 3 people to move - Objective Resuscitation Status: Resuscitation Status FULL:Full Resuscitation MAR Reviewed: Yes Vital Signs & Weight: Vital Signs (12 hours) Temp Pulse Resp BP Pulse Ox 04/02/18 12:04 98.3 F 74 16 136/73 94 L 04/02/18 11:13 67 12 95 04/02/18 07:55 96 04/02/18 07:52 98.3 F 56 L 14 142/74 H 96 04/02/18 04:00 98.2 F 57 L 12 137/71 96 Weight Admit Weight 300 lb Weight 310 lb 9.6 oz Most Recent Monitor Data Heart Rate from ECG 79 NIBP 162/96 NIBP BP-Mean 118 Respiration from ECG 16 SpO2 98 I&O: 04/01/18 04/02/18 04/03/18 06:59 06:59 06:59 Intake Total 980 1240 Output Total 1300 1325 Balance -320 -85 Result Diagrams: 04/02/18 05:01 04/02/18 05:01 Additional Labs: Microbiology 03/23/18 Unknown Stool - Loose C. difficile GDH Antigen & Toxins - Final 03/18/18 10:56 Spinal Fluid - Aspirate Body Fluid Culture - Final 03/17/18 18:21 Nasal swab Influenza Types A,B Direct EIA - Final 03/17/18 17:30 Venous blood - Left Hand Blood Culture - Final NO GROWTH IN 5 DAYS 03/17/18 17:21 Venous blood - Right Arm Blood Culture - Final Streptococcus pneumoniae 03/17/18 17:16 Urine jefferson catheter Urine Culture - Final Klebsiella pneumoniae ssp pneu Phys Exam - Physical Examination Constitutional: NAD HEENT: PERRLA, moist MMs, sclera anicteric, oral pharynx no lesions Neck: no nodes, no JVD, supple, full ROM Respiratory: no wheezing, no rales, no rhonchi, clear to auscultation bilateral Cardiovascular: RRR, no significant murmur Gastrointestinal: soft, non-tender, no distention, positive bowel sounds Musculoskeletal: no edema, pulses present Neurological: non-focal, normal sensation, moves all 4 limbs Psychiatric: normal affect, A&O x 3 Skin: no rash Dx/Plan (1) Sinus bradycardia Code(s): R00.1 - BRADYCARDIA, UNSPECIFIED Status: Acute Comment: Likley due to BB. Improved as BB stopped (2) Acute bacterial meningitis Code(s): G00.9 - BACTERIAL MENINGITIS, UNSPECIFIED Status: Acute Comment: Presumed Pneumococcal based upon the bacteremia. Continue Rocephin. (3) Acute respiratory failure with hypoxia Code(s): J96.01 - ACUTE RESPIRATORY FAILURE WITH HYPOXIA Status: Acute Comment: extubated 03/29 (4) Seizures Code(s): R56.9 - UNSPECIFIED CONVULSIONS Status: Acute Comment: EEG without epileptiform activity (5) UTI (urinary tract infection) Status: Acute Comment: Klebsiella (6) Sepsis Code(s): A41.9 - SEPSIS, UNSPECIFIED ORGANISM Status: Resolved Comment: Step bacteremia, Klebsiella UTI, evidence of meningitis on LP. (7) Altered mental status Code(s): R41.82 - ALTERED MENTAL STATUS, UNSPECIFIED Status: Acute Comment: Unclear if she has significant neuro injury from infection/hypoxia. Able to follow simple commands. (8) Dyslipidemia Code(s): E78.5 - HYPERLIPIDEMIA, UNSPECIFIED Status: Chronic (9) HTN (hypertension) Code(s): I10 - ESSENTIAL (PRIMARY) HYPERTENSION Status: Chronic Qualifiers: Hypertension type: essential hypertension Qualified Code(s): I10 - Essential (primary) hypertension (10) Morbid obesity with BMI of 40.0-44.9, adult Code(s): E66.01 - MORBID (SEVERE) OBESITY DUE TO EXCESS CALORIES; Z68.41 - BODY MASS INDEX (BMI) 40.0-44.9, ADULT Status: Chronic Comment: Suspected Grp A Strept as positive in blood - Plan PT/OT, DVT proph w/SCDs Pt not safe for DC home.encouraged to talk to family -: Rehab accepted pt -: OK to DC .HD stable -: BP and HR better -: change ABx to PO .will discuss w ID about the same * . Review of Systems - Review of Systems Constitutional: negative: fever, chills, sweats, weakness, malaise, other ENT: negative: Ear Pain, Ear Discharge, Nose Pain, Nose Discharge, Nose Congestion, Mouth Pain, Mouth Swelling, Throat Pain, Throat Swelling, Other Respiratory: negative: Cough, Dry, Shortness of Breath, Hemoptysis, SOB with Excertion, Pleuritic Pain, Sputum, Wheezing Cardiovascular: negative: chest pain, palpitations, orthopnea, paroxysmal nocturnal dyspnea, edema, light headedness, other Gastrointestinal: negative: Nausea, Vomiting, Abdominal Pain, Diarrhea, Constipation, Melena, Hematochezia, Other Genitourinary: negative: Dysuria, Frequency, Incontinence, Hematuria, Retention , Other Musculoskeletal: negative: Neck Pain, Shoulder Pain, Arm Pain, Back Pain, Hand Pain, Leg Pain, Foot Pain, Other Neurological: negative: Weakness, Numbness, Incoordination, Change in Speech, Confusion, Seizures, Other - Medications/Allergies Allergies/Adverse Reactions: Allergies Allergy/AdvReac Type Severity Reaction Status Date / Time NSAIDS (Non-Steroidal Allergy Verified 10/30/16 15:52 Anti-Inflamma aspirin AdvReac Verified 10/30/16 15:52 Medications: Current Medications Acetaminophen/Codeine Phosphate (Tylenol #3) 1 tab PO Q6HR [facility] Last Admin: 04/02/18 12:13 Dose: Not Given Albuterol Sulfate (Proventil Hfa) 1 puff INH Q6H PRN PRN Reason: SOB Albuterol/Ipratropium (Duoneb) 3 ml NEB [id number] [facility] Last Admin: 04/02/18 11:13 Dose: 3 ml Amlodipine Besylate (Norvasc) 5 mg PO DAILY [facility] Last Admin: 04/02/18 09:48 Dose: 5 mg Aspirin (Aspirin Chewable) 81 mg PO DAILY [facility] Last Admin: 04/02/18 09:48 Dose: 81 mg Atorvastatin Calcium (Lipitor) 20 mg PO HS [facility] Last Admin: 04/01/18 20:14 Dose: 20 mg Bisacodyl (Dulcolax) 10 mg PO DAILYPRN PRN PRN Reason: Constipation Bisacodyl (Dulcolax) 10 mg FL DAILYPRN PRN PRN Reason: Constipation Duloxetine HCl (Cymbalta) 30 mg PO BID [facility] Last Admin: 04/02/18 09:48 Dose: 30 mg Enoxaparin Sodium (Lovenox) 40 mg SC 0900 [facility] Last Admin: 04/02/18 09:48 Dose: 40 mg Ferrous Sulfate (Feosol) 325 mg PO DAILY [facility] Last Admin: 04/02/18 09:48 Dose: 325 mg Furosemide (Lasix) 40 mg PO DAILY-AC [facility] Last Admin: 04/02/18 09:47 Dose: 40 mg Gabapentin (Neurontin) 900 mg PO HS [facility] Last Admin: 04/01/18 20:14 Dose: 900 mg Hydralazine HCl (Apresoline) 10 mg SLOW IVP Q4H PRN PRN Reason: SBP Greater Than 170 Last Admin: 03/31/18 16:57 Dose: 10 mg Potassium Chloride 40 meq/ (Sodium Chloride) 270 mls @ 135 mls/hr IVPB ASDIR PRN PRN Reason: FOR SERUM K+ 2.5 - 3.5 Potassium Chloride 40 meq/ (Device) 100 mls @ 50 mls/hr IVPB ASDIR PRN PRN Reason: FOR SERUM K+ 2.5 - 3.5 Last Admin: 03/26/18 10:38 Dose: 100 mls Magnesium Sulfate 1 gm/ Sodium (Chloride) 102 mls @ 102 mls/hr IV PRN PRN PRN Reason: MAG LEVEL 1.4 - 2.0 Last Admin: 03/18/18 13:00 Dose: 102 mls Magnesium Sulfate 2 gm/ Device 100 mls @ 100 mls/hr IVPB ASDIR PRN PRN Reason: MAGNESIUM < 1.4 Potassium Phosphate 9 mmol/ (Sodium Chloride) 103 mls @ 25.75 mls/hr IVPB ASDIR PRN PRN Reason: Phosphate 1.0-1.8 Potassium Phosphate 12 mmol/ (Sodium Chloride) 254 mls @ 63.5 mls/hr IV ASDIR PRN PRN Reason: Serum phosphate 0.5-0.9 Potassium Phosphate 15 mmol/ (Sodium Chloride) 255 mls @ 63.75 mls/hr IV ASDIR PRN PRN Reason: Serum Phos < 0.5 Ceftriaxone Sodium 2 gm/ (Sodium Chloride) 100 mls @ 200 mls/hr IVPB Q12HR [facility] Last Admin: 04/02/18 09:48 Dose: 100 mls Fluconazole/Sodium Chloride 100 mg/ Miscellaneous Medication 1 each/ Device 50 mls @ 100 mls/hr IVPB 1999 [facility] Last Admin: 04/01/18 20:13 Dose: 50 mls Levetiracetam (Keppra) 500 mg PO BID [facility] Last Admin: 04/02/18 09:49 Dose: 500 mg Losartan Potassium (Cozaar) 100 mg PO DAILY [facility] Last Admin: 04/02/18 09:49 Dose: 100 mg Magnesium Oxide (Magnesium Oxide) 400 mg PO BIDPRN PRN PRN Reason: FOR SERUM MAG 1.4 - 2.0 Magnesium Oxide (Magnesium Oxide) 800 mg PO PRN PRN PRN Reason: FOR SERUM MAG < 1.4 Miscellaneous Medication (Phos-Nak) 1 pkt PO TIDPRN PRN PRN Reason: FOR PHOS LEVEL 1.0 - 1.8 Miscellaneous Medication (Phos-Nak) 2 pkt PO TIDPRN PRN PRN Reason: FOR PHOS LEVEL 0.5 - 1.0 Morphine Sulfate (Morphine) 4 mg SLOW IVP Q1H PRN PRN Reason: Breakthrough Pain/AGITATION Last Admin: 03/28/18 01:15 Dose: 4 mg Multivitamins (Multivit, Chewable Sf) 1 tab PO DAILY [facility] Last Admin: 04/02/18 09:49 Dose: 1 tab Ondansetron HCl (Zofran) 4 mg IVP Q6H PRN PRN Reason: Nausea/Vomiting Pantoprazole Sodium (Protonix) 40 mg PO DAILY [facility] Last Admin: 04/02/18 09:49 Dose: 40 mg Potassium Chloride (K-Dur) 40 meq PO ASDIR PRN PRN Reason: FOR SERUM K+ 2.5 - 3.5 Last Admin: 04/01/18 10:03 Dose: 40 meq Potassium Chloride (Klor-Con) 40 meq PER TUBE ASDIR PRN PRN Reason: FOR SERUM K+ 2.5-3.5 Last Admin: 03/22/18 08:14 Dose: 40 meq Prednisone (Prednisone) 20 mg PO QAM-WM [facility] Last Admin: 04/02/18 09:48 Dose: 20 mg Scopolamine (Transderm Scop) 1.5 mg TD Q3D [facility] Last Admin: 03/30/18 18:09 Dose: 1.5 mg Sodium Chloride (Flush - Normal Saline) 10 ml IVF Q12HR [facility] Last Admin: 04/02/18 09:49 Dose: 10 ml Sodium Chloride (Flush - Normal Saline) 10 ml IVF PRN PRN PRN Reason: Saline Flush
[2018-04-02 16:18] VITALS: BMI 50.1
[2018-04-02] MEDS: Scopolamine 1.5 mg/72 hour Patch TD SCH (16:25)
[2018-04-02] MEDS: Atorvastatin Calcium 20 MG TAB PO SCH (21:09)
[2018-04-02] MEDS: Gabapentin 300 MG CAP PO SCH (21:10)
[2018-04-02] MEDS: Fluconazole In NaCl,Iso-Osm 100 MG, Admixture Fee 1 EACH in Premix Bag 1 BAG IVPB SCH ×2 (21:10→21:20)
--- NOTE | 2018-04-03 01:41 | DIS ---
DATE OF ADMISSION: 03/17/2018 DATE OF DISCHARGE: 04/02/2018 CONDITION AT THE TIME OF DISCHARGE: Stable and improved. DISCHARGE DISPOSITION: Home with home health. PRIMARY CARE PHYSICIAN: Unknown. Outside of the town. DISCHARGE DIAGNOSES: 1. Meningitis secondary to Streptococcus pneumoniae, status post days treatment with IV Rocephin b.i .d. 2. Sinus bradycardia secondary to beta citlali improved after stopping the carvedilol. 3. Acute hypoxic respiratory failure requiring intubation with subsequent extubation on 03/29. 4. Seizures without any epileptiform activity on EEG. Doubt of seizures versus encephalopathy due t o meningitis. 5. Klebsiella urinary tract infection. 6. Sepsis. 7. Altered mental status due to toxic metabolic encephalopathy and meningitis. 8. Dyslipidemia. 9. Hypertension. 10. History of seizure disorder. 11. Morbid obesity with a BMI of 50. INHOUSE CONSULTATIONS: 1. Infectious Disease, Dr. Barba. 2. Pulmonary Critical Care Medicine, Dr. Amezcua. 3. Neurology, Dr. Carlos Gr. DISCHARGE MEDICATIONS: Carvedilol is stopped. She was started on amlodipine 5 mg daily. Resume fol lowing home medications: Simvastatin 40 mg daily, Keppra 500 mg p.o. b.i.d., Klor-Con 20 mg b.i.d., prednisone 20 mg daily, losartan 100 mg daily, Lasix 40 mg daily, ferrous sulfate 325 mg daily, Cymba lta p.o. b.i.d., aspirin 81 mg daily, Neurontin 900 mg at bedtime, omeprazole 20 mg daily, multivitam in daily. PROCEDURES DONE IN THE HOSPITAL: 1. CT angio of the [place] of [place] of head as well as CT angio of the neck, which shows no acute th rombosis occlusion or high-grade stenosis of the major arteries of the neck or head. 2. Lumbar puncture, CT guided. 3. CT angio of the thorax on 03/17/2018 which is negative for any evidence of pulmonary embolism. L eft lower lobe airspace density noticed. 4. EEG which is negative for any epileptiform activity, read by Dr. Gr. Abnormal diffuse slowi ng was consistent with encephalopathy. 5. MRI of the brain on 03/21/2018 which has no significant acute abnormalities. HISTORY OF PRESENTING ILLENSS: Ms. Black is a 77-year-old female with past medical history of seizur e disorder who presented to the emergency room after being found unresponsive by the family member. There was some question of seizure activity as per the EMS. She was found to be febrile at 101.7. S he was not able to protect the airways and was intubated in the field. She had evidence of leukocyto sis with WBCs of 14.1. Otherwise, her toxicology was negative. Ammonia was normal. BNP was 151. E KG and chest x-ray were unremarkable except for prolonged QT in the EKG. She was admitted with a pre sumptive diagnosis of sepsis, likely source pneumonia versus a AUTOMATIC [employer] infection. She was also diagnosed with possible status epilepticus and was started on empiric IV Keppra after the loading dose. Paolo scott see admission history and physical for further detail. HOSPITAL COURSE: The patient was intubated and monitored in the CCU and Pulmonary Critical Care, fol lowed the patient and eventually she was stabilized and extubated. She was seen by Infectious Disease specialist, Dr. Barba and underwent a lumbar puncture for the ques tion of meningitis. The CSF culture remained negative; however, her blood culture 1 out of 2 was pos itive for Streptococcus pneumoniae. Her urine culture also came back positive for Klebsiella. Her C SF, however, had chemistry that is suggestive of possible meningitis, 79% segmented neutrophils and W BC almost more than 26,000. Her CSF West Nile was negative as well as herpes was negative. Her urin e drug screen on presentation was negative as well. She was started on empiric IV antibiotics for pn eumococcal meningitis, which was continued and actually, she finished the course of the IV antibiotic as of today. She was eventually stabilized, extubated and Neurology also saw the patient with regards to her quest ionable seizures. Her EEG did not show any active seizures. She was initially started on IV Keppra, which was changed to home dosages of p.o. Keppra on discharge. She was extremely weak. She was transferred out of the ICU to telemetry unit and was followed by OT, PT and rehab was arranged for her, but the patient declined vehemently. I discussed this for over 2 days, but the patient was very adamant that she would not go to the rehabilitation. At this time, t he patient is requiring 3 people to just get out of the bed. She has not been able to stand by herse lf or sit at the side of the bed by herself. She is not able to clean herself if she has urination o r defecation. This was discussed with the patient's son, who was her primary care provider and at th is time he is okay taking her home with home health which was arranged for them. [facility] accepted the patient and the option has provided that if the son feels that he is not able to provide care for the patient, he can call [facility] and she will be still admitted for the rehab from outpatient status. I have emphasized once again that she needs with a rehab, but at this time the patient and family dejesus ve declined. Takes her a very high risk for readmission as this patient is not even able to wipe her self or get out of the bed, sit at the side of the bed by herself. She is 100% dependent on at least 2 people to get out of bed at the minimum. She was seen and examined prior to discharge. Please see hospitalist progress note from today's date for further detail including [id number] interaction. Discharge plan was discussed with the eamon soto who verbalized understanding. Medications were provided. TOTAL TIME SPENT: 35 minutes.
[2018-04-03 05:19] LABS: #Basophils 0.1 thou/uL (0.0-0.2); #Eosinphils 0.1 thou/uL (0.0-0.7); #Lymphocytes 1.8 thou/uL (1.20-3.40); #Monocytes 0.7 thou/uL (0.11-0.59); #Neutrophils 6.9 thou/uL (1.40-6.50); %Basophils 0.6 % (0.0-1.0); %Eosinophils 1.2 % (0.0-10.0); %Lymphocytes 18.8 % (21.0-51.0); %Monocytes 7.6 % (0.0-10.0); %Neutrophils 71.8 % (42.0-75.0); Hemoglobin 11.7 g/dL (12.0-16.0); Mean Corpuscular HGB CONC 31.6 g/dL (32.0-36.0); Mean Corpuscular Hemoglobin 27.4 pg (27.0-31.0); Mean Corpuscular Volume 86.9 fL (78.0-98.0); Platelet Count 259 thou/uL (130-400); RBC Distribution Width 15.7 % (11.5-14.5); Red Blood Cell (RBC) Count 4.26 mill/uL (4.20-5.40); White Blood Cell (WBC) Count 9.6 thou/uL (4.8-10.8)
[2018-04-03] MEDS: Acetaminophen/Codeine 30-300mg Tablet PO SCH ×3 (05:27→13:03)
[2018-04-03 05:44] LABS: Anion Gap 10 mmol/L (10-20); BUN (Urea Nitrogen) 16 mg/dL (9.8-20.1); Calc. Creatinine Clearance 156 mL/min (70-130); Calcium 8.3 mg/dL (7.8-10.44); Carbon Dioxide 27 mmol/L (23-31); Chloride 100 mmol/L (98-107); Estimated GFR-MDRD Greater than 90; Glucose 87 mg/dL (83-110); Potassium 3.8 mmol/L (3.5-5.1); Sodium 133 mmol/L (136-145)
[2018-04-03] MEDS: predniSONE 20 MG TAB PO SCH (08:44)
[2018-04-03] MEDS: Furosemide 40 MG TAB PO SCH (08:44)
[2018-04-03] MEDS: Ferrous Sulfate 325 MG TAB PO SCH (08:45)
[2018-04-03] MEDS: Enoxaparin Sodium 40 MG/0.4 ML SYRINGE SC SCH (08:45)
[2018-04-03] MEDS: Amlodipine 5 MG TAB PO SCH (08:45)
[2018-04-03] MEDS: DULoxetine 30 MG CAP PO SCH (08:45)
[2018-04-03] MEDS: Multivit, Chewable SF 1 TAB PO SCH (08:46)
[2018-04-03] MEDS: levETIRAcetam 500 MG TAB PO SCH (08:46)
[2018-04-03] MEDS: Losartan 25 MG TAB PO SCH (08:46)
[2018-04-03] MEDS: cefTRIAXone\\ROCEPHIN 2 GM in Sodium Chloride 0.9% 100 ML IVPB SCH (10:08)
[2018-04-03 13:52] VITALS: BP 149/81; TEMP 98.4
--- NOTE | 2018-04-03 23:37 | DIS ---
Please see my original discharge summary dictated yesterday on 04/02/2018 for full detail. The patient did not go home yesterday. As mentioned earlier, the patient was not discharged appropri ate for home, but the family insisted that she should not go to rehab facility. However, when the so emiliana came up to pick his mother up, he found out that she was in no shape to go home and he could not ev en get her out of the bed. He declined to take her home and the discharge was held. This morning she was again discharged to [facility], but once again refused and after extensive discus becky, the son once again wanted to take her home. We did discussed that he just refused to take her home last night and would not be able to take care of her, but he was adamant as well as the patient was very adamant that she did not want to go to [facility]. She is medically stable and has no further ne ed to stay in the hospital. She will be discharged home with home health. Once again, she remains a very high risk for readmission within the next few days as I do not believe that her home or her fam bart is capable of taking care of her physically. She is extremely weak and requires 2-3 people just to mobilize her from off the bed to the side of the bed. It is an unrealistic expectation on the par t of the family, but nevertheless they have been provided information about [facility] and she can be acce pted to [facility] even as an outpatient.
== END 2018-04-03 14:11 | disposition home health service (06) | DRG 870 ==
LOC: ERS 16:24 → CCU 18:58 → 2NO 03-30 13:52
PROVIDERS: ADMIT Internal Medicine; ATTEND Internal Medicine
PROC: 009U3ZX Drainage of Spinal Canal, Percutaneous Approach, Diagnostic (ICD-10-PCS; principal; 2018-03-18)
PROC: 5A1955Z Respiratory Ventilation, Greater than 96 Consecutive Hours (ICD-10-PCS; 2018-03-18)
PROC: 0BH17EZ Insertion of Endotracheal Airway into Trachea, Via Natural or Artificial Opening (ICD-10-PCS; 2018-03-18)
DX: A41.9 Sepsis, unspecified organism (principal); J18.9 Pneumonia, unspecified organism; J96.01 Acute respiratory failure with hypoxia; G00.2 Streptococcal meningitis; J15.4 Pneumonia due to other streptococci; G93.40 Encephalopathy, unspecified; E87.2 Acidosis; J98.11 Atelectasis; Z68.43 Body mass index [BMI] 50.0-59.9, adult; G40.909 Epilepsy, unspecified, not intractable, without status epilepticus; I10 Essential (primary) hypertension; Z87.11 Personal history of peptic ulcer disease; E78.5 Hyperlipidemia, unspecified; Z90.49 Acquired absence of other specified parts of digestive tract; Z90.710 Acquired absence of both cervix and uterus; Z96.653 Presence of artificial knee joint, bilateral; Z88.6 Allergy status to analgesic agent; G40.901 Epilepsy, unspecified, not intractable, with status epilepticus; E66.01 Morbid (severe) obesity due to excess calories; E87.6 Hypokalemia; I16.0 Hypertensive urgency; B95.5 Unspecified streptococcus as the cause of diseases classified elsewhere; N30.90 Cystitis, unspecified without hematuria; B96.1 Klebsiella pneumoniae [K. pneumoniae] as the cause of diseases classified elsewhere
CPT/HCPCS: 36415; 36416; 36556; 51702; 62270; 70450; 70496; 70498; 70553; 71045; 71275; 74177; 80048; 80053; 80202; 80306; 80307; 81003; 82010; 82140; 82553; 82805; 82945; 83605; 83690; 83735; 83880; 84157; 84443; 84484; 85025; 85060; 85610; 85730; 86788; 86789; 86850; 86900; 86901; 87040; 87070; 87077; 87086; 87149; 87186; 87205; 87324; 87449; 87529; 87804; 89051; 90471; 90670; 93005; 94002; 94003; 94640; 95816; 95819; 96365; 96366; 96368; 96375; C9113; G0009; G8978-GP-CN; G8979-GP-CL; G8987-GO-CM; G8988-GO-CK; J0290; J0360; J0696; J1100; J1450; J1650; J1940; J1953; J2060; J2250; J2270; J2543; J2704; J2920; J3010; J3370; J3475; J3480; J7050; J7506; J7620; S0028

== ENCOUNTER 2018-04-11 18:20 | Inpatient (IN) | payer MEDICARE, BC, OTHER ==
[2018-04-11 21:00] LABS: #Basophils 0.1 thou/uL (0.0-0.2); #Eosinphils 0.5 thou/uL (0.0-0.7); #Lymphocytes 1.4 thou/uL (1.20-3.40); #Monocytes 0.6 thou/uL (0.11-0.59); #Neutrophils 3.7 thou/uL (1.40-6.50); %Basophils 0.9 % (0.0-1.0); %Monocytes 9.4 % (0.0-10.0); %Neutrophils 59.6 % (42.0-75.0); Mean Corpuscular HGB CONC 30.5 g/dL (32.0-36.0); Mean Corpuscular Hemoglobin 26.5 pg (27.0-31.0); Mean Corpuscular Volume 86.8 fL (78.0-98.0); Mean Platelet Volume 7.8 fL (7.4-10.4); Platelet Count 113 thou/uL (130-400); RBC Distribution Width 15.7 % (11.5-14.5); Red Blood Cell (RBC) Count 4.16 mill/uL (4.20-5.40); White Blood Cell (WBC) Count 6.1 thou/uL (4.8-10.8)
[2018-04-11 21:01] LABS: Anisocytosis SLIGHT = 6-15 cells (100X) (0-5/hpf); MDiff Complete? YES; PLT Morphology Comment Appears Decreased
[2018-04-11 21:02] LABS: CKMB 1.1 ng/mL (0-6.6); Troponin I Less than 0.010 ng/mL (< 0.028)
[2018-04-11 21:05] LABS: ALT (SGPT) 18 U/L (8-55); AST (SGOT) 15 U/L (5-34); Albumin 3.4 g/dL (3.4-4.8); Alkaline Phosphatase 87 U/L (40-150); Anion Gap 14 mmol/L (10-20); BUN (Urea Nitrogen) 20 mg/dL (9.8-20.1); Bilirubin, Total 0.8 mg/dL (0.2-1.2); CK (CPK) 106 U/L (29-168); Calc. Creatinine Clearance 0 mL/min (70-130); Calcium 8.8 mg/dL (7.8-10.44); Carbon Dioxide 23 mmol/L (23-31); Chloride 103 mmol/L (98-107); Estimated GFR-MDRD 73; Globulin 2.8 g/dL (2.4-3.5); Glucose 115 mg/dL (83-110); Lipase 27 U/L (8-78); Potassium 3.8 mmol/L (3.5-5.1); Protein, Total 6.2 g/dL (6.0-8.3); Sodium 136 mmol/L (136-145)
[2018-04-11 21:45] LABS: Bilirubin Negative (Negative); Blood, Urine Moderate (Negative); Clarity TURBID (Clear); Glucose, Urine (Dipstick) Negative (Negative); Leukocyte Large (Negative); Nitrite Positive (Negative); Protein, Urine (Dipstick) Negative (Neg-Trace); Specific Gravity, Urine 1.009 (1.002-1.036); pH, Urine 5.5 (5.0-9.0)
[2018-04-11 21:47] LABS: Bacteria/HPF 1+ HPF (None Seen)
[2018-04-11 21:57] LABS: Pathc Cast-AUWi Flag 3.34 (0-2.49)
[2018-04-11 21:58] LABS: Hyaline Casts/LPF 0-3 HYALINE CAST LPF (0-3 Hyaline); Manual Microscopic Reviewed? No Path Casts Seen
[2018-04-11] MEDS ORDERED: Enoxaparin Sodium 100 MG/ML SYRINGE ONE ×2 (22:23→22:26)
[2018-04-11] MEDS ORDERED: Enoxaparin Sodium 30 MG/0.3 ML SYRINGE ONE (22:23)
[2018-04-11] MEDS ORDERED: cefTRIAXone\\ROCEPHIN 1 GM VIAL ONE (22:23)
[2018-04-11] MEDS ORDERED: Enoxaparin Sodium 40 MG/0.4 ML SYRINGE ONE (22:26)
--- NOTE | 2018-04-11 22:55 | CT ---
CT ANGIOGRAM THORAX WITH IV CONTRAST AND 3D RECONSTRUCTIONS 04/11/18 HISTORY: Weakness and leg pain. COMPARISON: 03/17/18. FINDINGS: There are filling defects seen within the most proximal subsegmental right lower lobe pulmonary arter ies. No definite additional filling defects are seen within the pulmonary arteries. Vascular calcifications are seen in the coronary arteries as well as involving the thoracic aorta. Th e thoracic aorta is normal in caliber without evidence of an aortic dissection. There is a tiny approximately 3 mm pulmonary nodule seen within the anterior aspect right upper lobe (image 42, series 3) which is stable compared to prior exam. No additional pulmonary nodule is seen. There is no mass or pleural effusion identified. Atelectasis is present at each lung base with small peripheral blebs as well as thin walled cysts in the right lower lobe. There is no evidence of lymphadenopathy. Endotracheal tube has been removed compared to prior exam. The parenchymal changes of each lung base have resolved. Gastric band is again noted in place. There is stable hypodense lesions in each lobe of the liver lik noel attributable to hepatic cysts. There is evidence of post cholecystectomy changes. There is incomp lete visualization of subcutaneous fluid collections seen in the upper abdominal wall soft tissues wh ich was imaged on prior study on 03/17/18. There is a severe compression fracture of the T6 vertebral body stable from prior exam. No other interval change. IMPRESSION: 1. Pulmonary emboli seen involving a few proximal subsegmental right lower lobe pulmonary arteri es. 2. Stable tiny pulmonary nodule measuring approximately 3 mm in the right upper lobe. 3. Burst fracture involving the T6 vertebral body with severe compression deformity present. Thi s is stable from prior exam. 4. 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 5. Remainder of the incidental findings are as described above. 6. Above findings discussed with Dr. Jackson in the Emergency Department on 04/11/18 at 2159 hours . POS: [facility]
[2018-04-12 00:21] VITALS: BMI 45.6
[2018-04-12] MEDS ORDERED: Ondansetron PF 4 MG/2 ML Vial IVP PRN (00:27)
[2018-04-12] MEDS ORDERED: Ondansetron ODT 4 MG TAB SL PRN (00:27)
[2018-04-12] MEDS ORDERED: Sodium Chloride 0.9% 1,000 ML IV SCH (00:30)
[2018-04-12] MEDS ORDERED: Prevnar 13-Val Conj/PF 0.5 ML SYRINGE IM ONE (09:00)
[2018-04-12] MEDS ORDERED: Apixaban 5 MG TAB PO SCH (09:30)
[2018-04-12] MEDS ORDERED: levETIRAcetam 500 MG TAB PO SCH (11:30)
[2018-04-12] MEDS ORDERED: Carvedilol 25 MG TAB PO SCH ×2 (11:30→17:00)
--- NOTE | 2018-04-12 11:41 | HP ---
DATE OF ADMISSION: 04/12/2018 PRIMARY CARE PHYSICIAN: Paula Lipscomb M.D. CHIEF COMPLAINT: Generalized weakness. HISTORY OF PRESENT ILLNESS: The patient is a 77-year-old female who was discharged from this facilit y approximately 10 days ago with a diagnosis of pneumococcal meningitis. She was placed on mechanica l ventilation as well. She had seizures during that hospitalization requiring Keppra. She also had Klebsiella urinary tract infection with toxic metabolic encephalopathy. Please refer to the discharg e summary dated 02/01/2018 for further details. The patient is somewhat poor historian. History obtained from the son over the phone. Post discharge, the patient's mentation gradually started clearing. However, the patient has been sp ending most of her time on her bed. She has been unable to ambulate due to weakness. She also had s ome pain in the right leg. She denies any fever, chills, nausea, vomiting, chest pain, palpitations. Please note that the patient had declined fpc placement. In the emergency room, her initial vital signs showed temperature 99.2, respiration 20, pulse rate of 106 with a blood pressure of 126/73 with O2 saturation of 96% on room air. D-dimer was 14.9. A CT angiogram of the chest was done that showed pulmonary embolism in the subsegmental pulmonary arteries . She received 1 dose of Lovenox in the emergency room. She also received 1 gram Rocephin for UTI. PAST MEDICAL HISTORY: 1. Recent hospitalization for respiratory failure, seizure and pneumococcal meningitis. 2. Bradycardia secondary to beta blockers. 3. Hypertension. 4. Seizure disorder. 5. Morbid obesity, BMI 45.7. 6. Peptic ulcer disease. 7. Hyperlipidemia. PAST SURGICAL HISTORY: 1. Appendectomy. 2. Cholecystectomy. 3. Bilateral knee replacement. SOCIAL HISTORY: As discussed above. Her son is the primary decision maker. She is full code. No a lcohol, tobacco or drug use. FAMILY HISTORY: Positive for heart disease. REVIEW OF SYSTEMS: Cannot be obtained from the patient due to current cognitive status. ALLERGIES: The patient is allergic to ASPIRIN, NSAIDS and TYLENOL. CURRENT HOME MEDICATIONS: Family to bring the accurate list of medications. PHYSICAL EXAMINATION: VITAL SIGNS: As discussed above. GENERAL: A 77-year-old female, in no apparent distress, answers most of the questions appropriately, however, slow to respond. There was intermittent confusion. HEENT: Atraumatic, normocephalic. Sclerae are anicteric. Dry mucous membrane. No oral lesion. NECK: Supple, no JVD, no carotid bruit. LUNGS: Clear to auscultation bilaterally. No wheezing, rales or rhonchi. Diminished air entry at b ases. HEART: S1, S2 present. Regular rate and rhythm. No murmur, rubs or gallops appreciated. ABDOMEN: Soft. Bowel sounds present. EXTREMITIES: Bilateral lower extremity 1+ edema with calf tenderness, right more than left. SKIN: Warm and dry. LYMPH NODES: No palpable lymph nodes in the neck. PERIPHERAL VASCULAR: Radial pulses palpable bilaterally. MUSCULOSKELETAL: No joint swelling or tenderness. LABORATORY AND X-RAY FINDINGS: 1. CBC showed WBC 6.1 with hemoglobin 11, hematocrit 36.1, platelet count of 113,000. D-dimer 14.9. Chemistries showed sodium 136, potassium 3.8, chloride 103, bicarbonate 23, BUN 20, creatinine 0.9. 2. Lactic acid 1.2. Troponin was negative. BNP 15.7. 3. Blood cultures have been sent. Urine culture was added to the urine sample. 4. CT angiogram of the chest by my review as discussed above. 5. EKG by my review showed sinus tachycardia. IMPRESSION: 1. Bilateral pulmonary embolism, probably secondary to recent immobilization. We will rule out deep venous thrombosis. 2. Urinary tract infection. 3. Chronic kidney disease stage 3. 4. Morbid obesity with a BMI of 45.7. 5. Seizure disorder. 6. Peptic ulcer disease. 7. Hypertension. 8. Seizure disorder. 9. Recent hospitalization for encephalopathy, respiratory failure, pneumococcal meningitis and seizu res. 10. Dyslipidemia. 11. Anxiety, depression. 12. Chronic pain syndrome. PLAN: The patient will be monitored on the telemetry unit. Echocardiogram will be obtained. We calli l get bilateral lower extremity Doppler to rule out DVT. We will resume selected home medications on ce confirmed. We will start her on Eliquis. Risks not limited to life threatening bleeding was disc ussed with her son over the phone, he stated understanding. We will consult continuous pillowcase cutter for dischar ge planning. A.m. labs. Monitor H and H. Plan of care was discussed with the patient and the son over the phone. They stated understanding.
--- NOTE | 2018-04-12 13:09 | ULT ---
BILATERAL LOWER EXTREMITY VENOUS DOPPLER ULTRASOUND: Date: 04-12-18 Comparison: None History: History of pulmonary embolism. Evaluate for DVT. Technique: Multiplanar grayscale sonographic imaging of the venous structures of bilateral lower extr emities obtained with color flow and spectral analysis. FINDINGS: Bilateral common femoral veins, greater saphenous veins, profunda femoral veins, femoral veins, popli teal veins, and posterior tibial veins are patent. There is normal blood flow, augmentation, and comp ression within the deep venous system bilaterally with no evidence for DVT on either side. IMPRESSION: No evidence for deep venous thrombosis of either lower extremity. POS: [facility]
[2018-04-12] MEDS: Apixaban 5 MG TAB PO SCH (20:16)
[2018-04-12] MEDS: DULoxetine 30 MG CAP PO SCH (20:16)
[2018-04-12] MEDS: levETIRAcetam 500 MG TAB PO SCH (20:16)
[2018-04-12] MEDS: Gabapentin 300 MG CAP PO SCH (20:16)
[2018-04-13] MEDS ORDERED: Furosemide 80 MG TAB PO SCH ×3 (07:30→08:45)
[2018-04-13] MEDS ORDERED: Calcium Carbonate 500 MG ChewTAB PO PRN (07:46)
[2018-04-13] MEDS ORDERED: Ondansetron ODT 4 MG TAB PO PRN (07:46)
[2018-04-13] MEDS ORDERED: Ondansetron PF 4 MG/2 ML Vial IVP PRN (07:46)
[2018-04-13] MEDS ORDERED: Acetaminophen 325 MG TAB PO PRN (07:46)
[2018-04-13] MEDS ORDERED: Carvedilol 6.25 MG TAB PO SCH (08:00)
[2018-04-13 08:28] LABS: #Basophils 0.1 thou/uL (0.0-0.2); #Eosinphils 0.5 thou/uL (0.0-0.7); #Lymphocytes 1.3 thou/uL (1.20-3.40); #Monocytes 0.4 thou/uL (0.11-0.59); #Neutrophils 2.5 thou/uL (1.40-6.50); %Basophils 1.7 % (0.0-1.0); %Lymphocytes 26.8 % (21.0-51.0); %Monocytes 8.8 % (0.0-10.0); %Neutrophils 52.7 % (42.0-75.0); Hemoglobin 10.2 g/dL (12.0-16.0); Mean Corpuscular HGB CONC 31.3 g/dL (32.0-36.0); Mean Corpuscular Hemoglobin 27.4 pg (27.0-31.0); Mean Corpuscular Volume 87.3 fL (78.0-98.0); Platelet Count 99 thou/uL (130-400); RBC Distribution Width 15.7 % (11.5-14.5); Red Blood Cell (RBC) Count 3.72 mill/uL (4.20-5.40); White Blood Cell (WBC) Count 4.7 thou/uL (4.8-10.8)
[2018-04-13 08:41] LABS: Anion Gap 14 mmol/L (10-20); BUN (Urea Nitrogen) 15 mg/dL (9.8-20.1); Calc. Creatinine Clearance 114 mL/min (70-130); Calcium 8.2 mg/dL (7.8-10.44); Carbon Dioxide 24 mmol/L (23-31); Chloride 104 mmol/L (98-107); Estimated GFR-MDRD 86; Glucose 106 mg/dL (83-110); Magnesium 1.3 mg/dL (1.6-2.6); Potassium 3.5 mmol/L (3.5-5.1); Sodium 138 mmol/L (136-145)
[2018-04-13] MEDS ORDERED: Amlodipine 5 MG TAB PO SCH ×2 (09:00→21:00)
[2018-04-13] MEDS ORDERED: Magnesium Sulfate 4 GM in Sodium Chloride 0.9% 250 ML 250 ML IVPB SCH (09:30)
[2018-04-13] MEDS: Famotidine 20 MG TAB PO SCH ×2 (09:47→20:23)
[2018-04-13] MEDS: DULoxetine 30 MG CAP PO SCH ×2 (09:48→20:23)
[2018-04-13] MEDS: Apixaban 5 MG TAB PO SCH ×2 (09:48→20:23)
[2018-04-13] MEDS: Senokot S 8.6-50 MG TAB PO SCH ×2 (09:48→20:23)
[2018-04-13] MEDS: Carvedilol 6.25 MG TAB PO SCH ×2 (09:48→18:30)
[2018-04-13] MEDS: levETIRAcetam 500 MG TAB PO SCH ×2 (09:50→20:23)
--- NOTE | 2018-04-13 15:08 | PDOC.PN ---
- Subjective Encounter Start Date: 04/13/18 Encounter Start Time: 08:30 Patient seen and examined for PE. No CP/SOB. Feels better. No new complaints. No overnight events - Objective Resuscitation Status: Resuscitation Status FULL:Full Resuscitation MAR Reviewed: Yes Vital Signs & Weight: Vital Signs (12 hours) Temp Pulse Pulse Pulse Resp BP BP 04/13/18 12:12 98.3 F 86 20 04/13/18 09:48 117/67 04/13/18 08:47 96 93 96/52 L 04/13/18 08:16 04/13/18 07:46 98.8 F 89 18 04/13/18 04:00 98.9 F 78 14 BP BP Pulse Ox Pulse Ox 04/13/18 12:12 124/78 97 04/13/18 09:48 04/13/18 08:47 127/69 99 04/13/18 08:16 97 04/13/18 07:46 106/59 L 97 04/13/18 04:00 105/57 L 96 Weight Admit Weight 274 lb 7 oz Weight 271 lb 1 oz I&O: 04/12/18 04/13/18 04/14/18 06:59 06:59 06:59 Intake Total 343 1880 Output Total 400 1230 Balance -57 650 Result Diagrams: 04/13/18 08:11 04/13/18 08:11 Radiology Reviewed by me: No (Doppler - Neg) EKG Reviewed by me: Yes (Tele SR) Phys Exam - Physical Examination Constitutional: NAD Respiratory: no wheezing, no rhonchi Cardiovascular: RRR, no rub Gastrointestinal: soft, non-tender, positive bowel sounds Musculoskeletal: no edema Neurological: moves all 4 limbs Dx/Plan - Plan 1. Bilateral pulmonary embolism Cont Eliquis - will reduce dose to 5 mg BID due to thrombocytopenia Echo - no RV strain 2. Urinary tract infection. Cont Atbx, Await cultures 3. Hypomagnesemia 4 gm IVPB Magnessium sulfate 4. Seizure disorder. Cont Keppra 5. Peptic ulcer disease. Cont PPI 6. Hypertension. Reduce Coreg dose due to BP on lower side, Cont Amlodipine 7. Recent hospitalization for encephalopathy, respiratory failure, pneumococcal meningitis and seizures / Dyslipidemia / Anxiety, depression / Chronic pain syndrome.Morbid obesity with a BMI of 45.7.CKD 3 / Thrombocytopenia Microbiology 04/11/18 21:03 Urine clean catch Urine Culture - Preliminary Gram Negative Stalin 04/11/18 20:16 Venous blood - Right Arm Blood Culture - Preliminary NO GROWTH AT 48 HOURS 04/11/18 20:03 Venous blood - Right Arm Blood Culture - Preliminary NO GROWTH AT 48 HOURS Laboratory Tests 04/13/18 08:11 Magnesium 1.3 L Review of Systems - Review of Systems Respiratory: negative: Cough, Dry, Shortness of Breath, Hemoptysis, SOB with Excertion, Pleuritic Pain, Sputum, Wheezing Cardiovascular: negative: chest pain, palpitations, orthopnea, paroxysmal nocturnal dyspnea, edema, light headedness, other - Medications/Allergies Allergies/Adverse Reactions: Allergies Allergy/AdvReac Type Severity Reaction Status Date / Time NSAIDS (Non-Steroidal Allergy Verified 10/30/16 15:52 Anti-Inflamma aspirin AdvReac Verified 10/30/16 15:52 Medications: Current Medications Acetaminophen (Tylenol) 650 mg PO Q4H PRN PRN Reason: Headache/Fever/Mild Pain (1-3) Amlodipine Besylate (Norvasc) 5 mg PO [facility] Apixaban (Eliquis) 10 mg PO BID [facility] Last Admin: 04/13/18 09:48 Dose: 10 mg Calcium Carbonate (Tums) 1,000 mg PO Q4H PRN PRN Reason: Heartburn or Indigestion Carvedilol (Coreg) 6.25 mg PO BID-[facility] Last Admin: 04/13/18 09:48 Dose: 6.25 mg Duloxetine HCl (Cymbalta) 30 mg PO BID [facility] Last Admin: 04/13/18 09:48 Dose: 30 mg Famotidine (Pepcid) 20 mg PO BID [facility] Last Admin: 04/13/18 09:47 Dose: 20 mg Furosemide (Lasix) 80 mg PO DAILY-[facility] Gabapentin (Neurontin) 300 mg PO [facility] Last Admin: 04/12/18 20:16 Dose: 300 mg Levetiracetam (Keppra) 500 mg PO BID [facility] Last Admin: 04/13/18 09:50 Dose: 500 mg Ondansetron HCl (Zofran Odt) 4 mg PO Q6H PRN PRN Reason: Nausea/Vomiting Ondansetron HCl (Zofran) 4 mg IVP Q6H PRN PRN Reason: Nausea/Vomiting Pantoprazole Sodium (Protonix) 40 mg PO DAILY [facility] Last Admin: 04/13/18 09:50 Dose: 40 mg Potassium Chloride (Klor-Con) 20 meq PO BID [facility] Last Admin: 04/13/18 09:49 Dose: 20 meq Prednisone (Prednisone) 10 mg PO QA-[facility] Prednisone (Prednisone) 10 mg PO ONE [facility] Senna/Docusate Sodium (Senokot S) 1 tab PO BID [facility] Last Admin: 04/13/18 09:48 Dose: 1 tab
[2018-04-13] MEDS ORDERED: predniSONE 5 MG TAB PO SCH (15:15)
[2018-04-13] MEDS ORDERED: cefTRIAXone\\ROCEPHIN 1 GM in Sodium Chloride 0.9% 100 ML IVPB SCH (16:00)
[2018-04-13] MEDS: Gabapentin 300 MG CAP PO SCH (20:23)
[2018-04-14 06:52] LABS: ALT (SGPT) 16 U/L (8-55); AST (SGOT) 14 U/L (5-34); Albumin 3.1 g/dL (3.4-4.8); Alkaline Phosphatase 85 U/L (40-150); Anion Gap 13 mmol/L (10-20); BUN (Urea Nitrogen) 14 mg/dL (9.8-20.1); Bilirubin, Total 0.5 mg/dL (0.2-1.2); Calc. Creatinine Clearance 123 mL/min (70-130); Calcium 8.5 mg/dL (7.8-10.44); Carbon Dioxide 23 mmol/L (23-31); Chloride 104 mmol/L (98-107); Estimated GFR-MDRD Greater than 90; Globulin 2.8 g/dL (2.4-3.5); Glucose 135 mg/dL (83-110); Magnesium 2.2 mg/dL (1.6-2.6); Phosphorus 3.1 mg/dL (2.3-4.7); Protein, Total 5.9 g/dL (6.0-8.3); Sodium 136 mmol/L (136-145)
[2018-04-14 08:27] LABS: #Eosinphils 0.3 thou/uL (0.0-0.7); #Lymphocytes 1.3 thou/uL (1.20-3.40); #Monocytes 0.4 thou/uL (0.11-0.59); #Neutrophils 3.3 thou/uL (1.40-6.50); %Basophils 0.5 % (0.0-1.0); %Eosinophils 6.1 % (0.0-10.0); %Monocytes 7.6 % (0.0-10.0); %Neutrophils 60.8 % (42.0-75.0); MDiff Complete? YES; Mean Corpuscular HGB CONC 30.8 g/dL (32.0-36.0); Mean Corpuscular Hemoglobin 26.7 pg (27.0-31.0); Mean Corpuscular Volume 86.6 fL (78.0-98.0); PLT Morphology Comment Appears Decreased; Platelet Count 102 thou/uL (130-400); RBC Distribution Width 15.5 % (11.5-14.5); Red Blood Cell (RBC) Count 3.76 mill/uL (4.20-5.40); White Blood Cell (WBC) Count 5.3 thou/uL (4.8-10.8)
[2018-04-14] MEDS: predniSONE 5 MG TAB PO SCH (09:28)
[2018-04-14] MEDS: Carvedilol 6.25 MG TAB PO SCH ×2 (09:28→16:41)
[2018-04-14] MEDS: Losartan 25 MG TAB PO SCH (09:28)
[2018-04-14] MEDS: Senokot S 8.6-50 MG TAB PO SCH ×3 (09:29→21:00)
[2018-04-14] MEDS: levETIRAcetam 500 MG TAB PO SCH ×2 (09:29→20:58)
[2018-04-14] MEDS: Apixaban 5 MG TAB PO SCH ×2 (09:29→20:57)
[2018-04-14] MEDS: DULoxetine 30 MG CAP PO SCH ×2 (09:30→20:58)
[2018-04-14] MEDS: Famotidine 20 MG TAB PO SCH ×2 (09:30→20:58)
[2018-04-14] MEDS: Furosemide 80 MG TAB PO SCH (09:30)
--- NOTE | 2018-04-14 11:22 | EKG ---
Test Reason : WEAKNESS Blood Pressure : / mmHG Vent. Rate : 108 BPM Atrial Rate : 108 BPM P-R Int : 132 ms QRS Dur : 084 ms QT Int : 368 ms P-R-T Axes : 023 001 080 degrees QTc Int : 493 ms Sinus tachycardia with occasional Premature ventricular complexes Nonspecific ST and T wave abnormality Abnormal ECG Confirmed by LILIAN JANE, HONG ([id number]), acquisition editor CURT REYES ([id number]) on 04/14/2018 11:22:24 AM Referred By: Confirmed By:HONG QUINTANA MD
[2018-04-14] MEDS ORDERED: Cipro 250 MG TAB PO SCH (12:30)
--- NOTE | 2018-04-14 15:12 | PDOC.PN ---
- Subjective Encounter Start Date: 04/14/18 Encounter Start Time: 12:00 Patient seen and examined for PE. No new complaints. No overnight events - Objective Resuscitation Status: Resuscitation Status FULL:Full Resuscitation MAR Reviewed: Yes Vital Signs & Weight: Vital Signs (12 hours) Temp Pulse Resp BP BP Pulse Ox 04/14/18 12:45 97.9 F 72 20 161/86 H 98 04/14/18 09:28 134/82 04/14/18 08:00 99 04/14/18 07:45 97.8 F 64 20 134/82 99 04/14/18 04:00 97.8 F 60 16 130/79 99 Weight Admit Weight 274 lb 7 oz Weight 274 lb I&O: 04/13/18 04/14/18 04/15/18 06:59 06:59 06:59 Intake Total 1880 1318 Output Total 1230 850 Balance 650 468 Result Diagrams: 04/14/18 05:32 04/14/18 05:32 EKG Reviewed by me: Yes (Tele SR) Phys Exam - Physical Examination Constitutional: NAD Respiratory: no wheezing, no rhonchi Cardiovascular: RRR, no rub Gastrointestinal: soft, non-tender, positive bowel sounds Musculoskeletal: no edema Neurological: moves all 4 limbs Dx/Plan - Plan 1. Bilateral pulmonary embolism Cont Eliquis 5 mg BID due to thrombocytopenia Echo - no RV strain 2. Citrobacter Urinary tract infection. Start PO Cipro, DC IV Ceftriaxone 3. Hypomagnesemia - replaced 4. Seizure disorder. Cont Keppra 5. Peptic ulcer disease. Cont PPI 6. Hypertension. Cont Coreg/Losartan 7. Recent hospitalization for encephalopathy, respiratory failure, pneumococcal meningitis and seizures / Dyslipidemia / Anxiety, depression / Chronic pain syndrome.Morbid obesity with a BMI of 45.7.CKD 3 / Thrombocytopenia Microbiology 04/11/18 21:03 Urine clean catch Urine Culture - Final Citrobacter freundii 04/11/18 20:16 Venous blood - Right Arm Blood Culture - Preliminary NO GROWTH AT 48 HOURS 04/11/18 20:03 Venous blood - Right Arm Blood Culture - Preliminary NO GROWTH AT 48 HOURS Review of Systems - Review of Systems Respiratory: negative: Cough, Dry, Shortness of Breath, Hemoptysis, SOB with Excertion, Pleuritic Pain, Sputum, Wheezing Cardiovascular: negative: chest pain, palpitations, orthopnea, paroxysmal nocturnal dyspnea, edema, light headedness, other Gastrointestinal: negative: Nausea, Vomiting, Abdominal Pain, Diarrhea, Constipation, Melena, Hematochezia, Other - Medications/Allergies Allergies/Adverse Reactions: Allergies Allergy/AdvReac Type Severity Reaction Status Date / Time NSAIDS (Non-Steroidal Allergy Verified 10/30/16 15:52 Anti-Inflamma aspirin AdvReac Verified 10/30/16 15:52 Medications: Current Medications Acetaminophen (Tylenol) 650 mg PO Q4H PRN PRN Reason: Headache/Fever/Mild Pain (1-3) Apixaban (Eliquis) 5 mg PO BID [facility] Last Admin: 04/14/18 09:29 Dose: 5 mg Calcium Carbonate (Tums) 1,000 mg PO Q4H PRN PRN Reason: Heartburn or Indigestion [facility] Last Admin: 04/14/18 09:28 Dose: 6.25 mg Ciprofloxacin (Cipro) 250 mg PO BID@0600,2000 [facility] Duloxetine HCl (Cymbalta) 30 mg PO BID [facility] Last Admin: 04/14/18 09:30 Dose: 30 mg Famotidine (Pepcid) 20 mg PO BID [facility] Last Admin: 04/14/18 09:30 Dose: 20 mg Furosemide (Lasix) 80 mg PO DAILY-[facility] Last Admin: 04/14/18 09:30 Dose: 80 mg Gabapentin (Neurontin) 300 mg PO [facility] Last Admin: 04/13/18 20:23 Dose: 300 mg Levetiracetam (Keppra) 500 mg PO BID [facility] Last Admin: 04/14/18 09:29 Dose: 500 mg Losartan Potassium (Cozaar) 25 mg PO DAILY [facility] Last Admin: 04/14/18 09:28 Dose: 25 mg Ondansetron HCl (Zofran Odt) 4 mg PO Q6H PRN PRN Reason: Nausea/Vomiting Ondansetron HCl (Zofran) 4 mg IVP Q6H PRN PRN Reason: Nausea/Vomiting Pantoprazole Sodium (Protonix) 40 mg PO DAILY [facility] Last Admin: 04/14/18 09:28 Dose: 40 mg Potassium Chloride (Klor-Con) 20 meq PO BID [facility] Last Admin: 04/14/18 09:28 Dose: 20 meq Prednisone (Prednisone) 10 mg PO [facility] Last Admin: 04/14/18 09:28 Dose: 10 mg Saccharomyces Boulardii (Florastor) 250 mg PO DAILY [facility] Senna/Docusate Sodium (Senokot S) 1 tab PO BID [facility] Last Admin: 04/14/18 09:29 Dose: 1 tab
[2018-04-14] MEDS ORDERED: traMADol HCl 50 MG TAB PO PRN (17:31)
[2018-04-14] MEDS: Cipro 250 MG TAB PO SCH (20:55)
[2018-04-14] MEDS: Gabapentin 300 MG CAP PO SCH (20:58)
[2018-04-15] MEDS: Cipro 250 MG TAB PO SCH (05:10)
[2018-04-15 06:53] LABS: #Basophils 0.1 thou/uL (0.0-0.2); #Eosinphils 0.5 thou/uL (0.0-0.7); #Lymphocytes 1.7 thou/uL (1.20-3.40); #Monocytes 0.5 thou/uL (0.11-0.59); %Basophils 1.1 % (0.0-1.0); %Eosinophils 9.3 % (0.0-10.0); %Lymphocytes 29.6 % (21.0-51.0); %Monocytes 8.4 % (0.0-10.0); %Neutrophils 51.6 % (42.0-75.0); Mean Corpuscular HGB CONC 30.7 g/dL (32.0-36.0); Mean Corpuscular Hemoglobin 26.7 pg (27.0-31.0); Mean Platelet Volume 7.8 fL (7.4-10.4); Platelet Count 137 thou/uL (130-400); RBC Distribution Width 15.6 % (11.5-14.5); Red Blood Cell (RBC) Count 3.76 mill/uL (4.20-5.40); White Blood Cell (WBC) Count 5.7 thou/uL (4.8-10.8)
[2018-04-15 07:18] LABS: Anion Gap 13 mmol/L (10-20); BUN (Urea Nitrogen) 11 mg/dL (9.8-20.1); Calc. Creatinine Clearance 138 mL/min (70-130); Calcium 8.5 mg/dL (7.8-10.44); Carbon Dioxide 24 mmol/L (23-31); Chloride 103 mmol/L (98-107); Estimated GFR-MDRD Greater than 90; Glucose 98 mg/dL (83-110); Magnesium 1.6 mg/dL (1.6-2.6); Potassium 3.6 mmol/L (3.5-5.1); Sodium 136 mmol/L (136-145)
[2018-04-15] MEDS ORDERED: Magnesium 2 GM/50 ML 2 GM in Premix Bag 1 BAG IVPB SCH (08:00)
[2018-04-15] MEDS: Furosemide 80 MG TAB PO SCH (08:26)
[2018-04-15] MEDS: Losartan 25 MG TAB PO SCH (08:26)
[2018-04-15] MEDS: Carvedilol 6.25 MG TAB PO SCH (08:27)
[2018-04-15] MEDS: Famotidine 20 MG TAB PO SCH (08:27)
[2018-04-15] MEDS: Senokot S 8.6-50 MG TAB PO SCH (08:27)
[2018-04-15] MEDS: levETIRAcetam 500 MG TAB PO SCH (08:27)
[2018-04-15 08:39] VITALS: BP 142/65; TEMP 98.5
[2018-04-15] MEDS ORDERED: Saccharomyces boulardii 250 MG CAP PO SCH (09:00)
[2018-04-15] MEDS: Apixaban 5 MG TAB PO SCH (11:04)
[2018-04-15] MEDS: predniSONE 5 MG TAB PO SCH (11:04)
[2018-04-15] MEDS: DULoxetine 30 MG CAP PO SCH ×2 (11:05→11:26)
--- NOTE | 2018-04-15 12:47 | DIS ---
DATE OF ADMISSION: 04/11/2018 DATE OF DISCHARGE: 04/15/2018 DISCHARGE DISPOSITION: [facility]. The patient was seen and examined on the day of discharge. Denies any new complaints, no chest pain, shortness of breath, palpitations. ALLERGIES: Patient is allergic to ASPIRIN and NONSTEROIDAL ANTI-INFLAMMATORY DRUGS. DISCHARGE MEDICATIONS: 1. Eliquis 5 mg twice a day. 2. Carvedilol 6.25 b.i.d. 3. Ciprofloxacin 250 mg twice a day to be stopped after 5 days. 4. Gabapentin 300 mg 3 times a day. 5. Keppra 500 mg b.i.d. 6. Losartan 25 mg daily. 7. Protonix 40 mg daily. 8. Prednisone 10 mg daily for the next 5 days. 9. Slow-Mag 64 mg b.i.d. 10. Senokot-S 1 tablet twice a day. 11. Tylenol #4 as needed. 12. Albuterol inhaler as needed. 13. Cymbalta 30 mg b.i.d. 14. Ferrous sulfate 325 mg daily. 15. Lasix 80 mg daily. 16. Multivitamin 1 tablet daily. 17. Potassium 20 mEq b.i.d. BRIEF HOSPITAL COURSE: The patient is a 77-year-old female who was discharged from this facility wit h a diagnosis of pneumococcal meningitis, presented to the hospital with generalized weakness. Paolo scott refer to the history and physical for further details. The patient was admitted to the telemetry unit with a diagnosis of bilateral pulmonary embolism madelin richardy to recent immobilization. Bilateral lower extremity Dopplers were negative for DVT. She was al so found to have Citrobacter UTI sensitive to ciprofloxacin. Her blood culture remained negative. H er blood pressure ran in the lower range. Most of the blood pressure medication dosages have been cu t down. She appears stable for discharge. Plan of care was discussed with the patient, patient's so n and daughter over the phone. They stated understanding. FINAL DIAGNOSES: 1. Bilateral pulmonary embolism. Echocardiogram was negative for right ventricular strain. 2. Citrobacter urinary tract infection. 3. Hypomagnesemia. 4. Seizure disorder. 5. Chronic pain syndrome. 6. Peptic ulcer disease. 7. Hypertension. 8. Anxiety and depression. 9. Dyslipidemia. 10. Morbid obesity with a BMI of 48. 11. Chronic kidney disease stage 3. 12. Thrombocytopenia. 13. Recent hospitalization for pneumococcal meningitis, seizures, respiratory failure and encephalop athy. Total time coordinating the discharge of this patient was 37 minutes.
== END 2018-04-15 12:11 | disposition home or self-care (01) | DRG 176 ==
LOC: ERS 18:20 → 2NO 22:11 → ONC 04-14 17:40
PROVIDERS: ADMIT Internal Medicine; ATTEND Internal Medicine
DX: I26.99 Other pulmonary embolism without acute cor pulmonale (principal); Z68.42 Body mass index [BMI] 45.0-49.9, adult; N39.0 Urinary tract infection, site not specified; E66.01 Morbid (severe) obesity due to excess calories; E78.5 Hyperlipidemia, unspecified; I12.9 Hypertensive chronic kidney disease with stage 1 through stage 4 chronic kidney disease, or unspecified chronic kidney disease; N18.3 Chronic kidney disease, stage 3 (moderate); G40.909 Epilepsy, unspecified, not intractable, without status epilepticus; F41.9 Anxiety disorder, unspecified; G89.4 Chronic pain syndrome; B96.89 Other specified bacterial agents as the cause of diseases classified elsewhere; E83.42 Hypomagnesemia; K27.9 Peptic ulcer, site unspecified, unspecified as acute or chronic, without hemorrhage or perforation; F32.9 Major depressive disorder, single episode, unspecified; D69.6 Thrombocytopenia, unspecified; Z90.49 Acquired absence of other specified parts of digestive tract; Z96.653 Presence of artificial knee joint, bilateral; Z88.6 Allergy status to analgesic agent
CPT/HCPCS: 36415; 51701; 71275; 80048; 80053; 81003; 81015; 82553; 83605; 83690; 83735; 83880; 84100; 84484; 85025; 85379; 87040; 87077; 87086; 87186; 90471; 90670; 93005; 93306; 93970; 96361; 96365; 96372; A4353; G0009; G8978-GP-CM; G8979-GP-CL; G8987-GO-CM; G8988-GO-CK; J0696; J1650; J3475; J7050

== ENCOUNTER 2018-07-07 00:19 | Emergency (ER) | payer MEDICARE, BC, OTHER ==
[2018-07-07 01:37] LABS: #Eosinphils 0.3 thou/uL (0.0-0.7); #Lymphocytes 1.8 thou/uL (1.20-3.40); #Monocytes 0.6 thou/uL (0.11-0.59); #Neutrophils 3.5 thou/uL (1.40-6.50); %Basophils 0.8 % (0.0-1.0); %Eosinophils 4.7 % (0.0-10.0); %Lymphocytes 29.1 % (21.0-51.0); %Monocytes 10.2 % (0.0-10.0); %Neutrophils 55.3 % (42.0-75.0); Hemoglobin 9.4 g/dL (12.0-16.0); Mean Corpuscular HGB CONC 30.7 g/dL (32.0-36.0); Mean Corpuscular Hemoglobin 26.9 pg (27.0-31.0); Mean Corpuscular Volume 87.6 fL (78.0-98.0); Mean Platelet Volume 7.5 fL (7.4-10.4); Platelet Count 210 thou/uL (130-400); RBC Distribution Width 14.6 % (11.5-14.5); Red Blood Cell (RBC) Count 3.48 mill/uL (4.20-5.40); White Blood Cell (WBC) Count 6.3 thou/uL (4.8-10.8)
[2018-07-07 02:02] LABS: ALT (SGPT) 8 U/L (8-55); AST (SGOT) 9 U/L (5-34); Albumin 3.4 g/dL (3.4-4.8); Alkaline Phosphatase 68 U/L (40-150); Anion Gap 14 mmol/L (10-20); BUN (Urea Nitrogen) 14 mg/dL (9.8-20.1); Bilirubin, Total 0.4 mg/dL (0.2-1.2); Calc. Creatinine Clearance 0 mL/min (70-130); Calcium 8.9 mg/dL (7.8-10.44); Carbon Dioxide 25 mmol/L (23-31); Chloride 106 mmol/L (98-107); Estimated GFR-MDRD 68; Globulin 2.5 g/dL (2.4-3.5); Glucose 120 mg/dL (83-110); Potassium 3.6 mmol/L (3.5-5.1); Protein, Total 5.9 g/dL (6.0-8.3); Sodium 141 mmol/L (136-145)
[2018-07-07 03:49] LABS: Bilirubin Negative (Negative); Blood, Urine Negative (Negative); Clarity CLOUDY (Clear); Glucose, Urine (Dipstick) Negative (Negative); Leukocyte Small (Negative); Nitrite Positive (Negative); Protein, Urine (Dipstick) Negative (Neg-Trace); Urobilinogen 0.2 mg/dL (0.2-1.0); pH, Urine 5.5 (5.0-9.0)
[2018-07-07 03:51] LABS: Bacteria/HPF 2+ HPF (None Seen); Pathc Cast-AUWi Flag 1.45 (0-2.49); RBC/HPF 0-3 HPF (0-3); WBC/HPF 0-3 HPF (0-3)
[2018-07-07 03:59] LABS: Hyaline Casts/LPF 7-10 HYALINE CAST LPF (0-3 Hyaline); Renal Epithelial 0-3 HPF (0-3); Transitional Epithelial NONE SEEN HPF (0-3)
[2018-07-07] MEDS ORDERED: cefTRIAXone\\ROCEPHIN 1 GM VIAL ONE (04:47)
[2018-07-07] MEDS ORDERED: Lidocaine 1% PF 5 ML VIAL ONE (04:47)
--- NOTE | 2018-07-07 08:41 | RAD ---
PORTABLE CHEST: Date: 07/07/18 PROVIDED CLINICAL HISTORY: Seizure. FINDINGS: Comparison with 03/29/18. The cardiac and mediastinal silhouette is unchanged in appearance. Persistent paramediastinal density that may represent vascular ectasia involving the right lung apex. There is no focal consolidation, pleural fluid, or pneumothorax apparent. IMPRESSION: No evidence for an acute cardiopulmonary process. If there is persistent clinical concern, follow-up PA and lateral views of chest are recommended. POS: [facility]
--- NOTE | 2018-07-07 09:10 | CT ---
PRELIMINARY REPORT/[facility]/EMERGENCY AFTER HOURS PROCEDURE: EXAM: CT Head Without Contrast EXAM DATE/TIME: 07/07/2018 1:46 AM CLINICAL HISTORY: 78 years old, female; Signs and symptoms; Other: Seizure; Patient HX: 78/f who presents to the ed wit h C/O possible seizure. PT grandson reports that PT was "shaking in her bed" and then went to get his father. PT son reports that by the time he got there his mother was no longer shaking and seemed very sleepy. PT reports history of seizures and states that her last seizure was a few months ago. PT is unsure whether she took her seizure medication today. She knows she took it yesterday. PT C/O bilateral knee pain which is chronic and unchanged from baseline. Son and grandson report that patient did not fall out of bed and had no loc. ; Additional info: Prior report sent TECHNIQUE: Axial computed tomography images of the head/brain without contrast. COMPARISON: No relevant prior studies available. FINDINGS: Brain: Volume loss and chronic small vessel ischemic change. Old lacunar infarction(s). No brain edema. No intracranial hemorrhage. Ventricles: Normal. No ventriculomegaly. Bones/joints: Normal. No acute fracture. Sinuses: Normal as visualized. No acute sinusitis. Mastoid air cells: Normal as visualized. No mastoid effusion. Soft tissues: Normal. IMPRESSION: No acute brain findings. Thank you for allowing us to participate in the care of your patient. Dictated and Authenticated by: Percy Guevara MD 07/07/2018 2:31 AM Central Time ([place] & [place]) FINAL REPORT EMERGENCY AFTER HOURS CT BRAIN: Date: 07/07/18 IMPRESSION: I agree with the preliminary interpretation given by Tigre. No evidence for intracranial hemorrhage or mass effect. Chronic microvascular ischemic changes are demonstrated, which appear similar to the examination. POS: [facility]
== END 2018-07-07 06:08 | disposition home or self-care (01) ==
LOC: ERS 00:19
DX: R56.9 Unspecified convulsions (principal); N39.0 Urinary tract infection, site not specified; I10 Essential (primary) hypertension; E78.5 Hyperlipidemia, unspecified; Z79.899 Other long term (current) drug therapy
CPT/HCPCS: 51701; 70450; 71045; 80053; 81003; 81015; 84146; 85025; 87077; 87086; 87186; 93005; 96372; A4353; J0696; J2001

== ENCOUNTER 2020-07-06 18:06 | Inpatient (IN) | payer MEDICARE, BC, OTHER ==
--- NOTE | 2020-07-06 19:36 | RAD ---
PORTABLE CHEST: History: Covid positive, dyspnea. Comparison: 07-07-18 FINDINGS: Heart size is enlarged. Aorta is tortuous. The lungs are clear of infiltrates. IMPRESSION: Cardiomegaly. No acute findings. POS: [facility]
[2020-07-06 19:45] LABS: #Lymphocytes 1.1 thou/uL (1.20-3.40); #Monocytes 0.5 thou/uL (0.11-0.59); #Neutrophils 5.1 thou/uL (1.40-6.50); %Basophils 0.1 % (0.0-1.0); %Eosinophils 0.6 % (0.0-10.0); %Lymphocytes 16.5 % (21.0-51.0); %Monocytes 6.8 % (0.0-10.0); %Neutrophils 75.9 % (42.0-75.0); Hemoglobin 11.9 g/dL (12.0-16.0); Mean Corpuscular Hemoglobin 26.1 pg (27.0-31.0); Mean Corpuscular Volume 84.1 fL (78.0-98.0); Mean Platelet Volume 7.8 fL (7.4-10.4); Platelet Count 199 thou/uL (130-400); RBC Distribution Width 14.5 % (11.5-14.5); Red Blood Cell (RBC) Count 4.55 mill/uL (4.20-5.40); White Blood Cell (WBC) Count 6.8 thou/uL (4.8-10.8)
[2020-07-06 19:55] LABS: Bacteria/HPF 4+ HPF (None Seen); Squamous Epithelial 0-3 HPF (0-3)
[2020-07-06 20:01] LABS: Bilirubin Small (Negative); Blood, Urine Negative (Negative); Glucose, Urine (Dipstick) Negative (Negative); Ketone, Urine Trace mg/dL (Negative); Leukocyte Negative (Negative); Nitrite Negative (Negative); Protein, Urine (Dipstick) 100 mg/dL (Neg-Trace); Specific Gravity, Urine 1.025 (1.005-1.030)
[2020-07-06 20:02] LABS: Clarity CLOUDY (Clear)
[2020-07-06 20:05] LABS: ALT (SGPT) 12 U/L (8-55); AST (SGOT) 25 U/L (5-34); Albumin 3.8 g/dL (3.4-4.8); Alkaline Phosphatase 80 U/L (40-110); Anion Gap 19 mmol/L (10-20); BUN (Urea Nitrogen) 16 mg/dL (9.8-20.1); Bilirubin, Total 0.7 mg/dL (0.2-1.2); Calc. Creatinine Clearance 0 mL/min (70-130); Calcium 8.5 mg/dL (7.8-10.44); Carbon Dioxide 28 mmol/L (23-31); Chloride 96 mmol/L (98-107); Globulin 4.3 g/dL (2.4-3.5); Glucose 135 mg/dL (83-110); Lipase 11 U/L (8-78); Potassium 3.6 mmol/L (3.5-5.1); Protein, Total 8.1 g/dL (6.0-8.3); Sodium 139 mmol/L (136-145)
--- NOTE | 2020-07-06 20:24 | CT ---
CT OF BRAIN PERFORMED WITHOUT CONTRAST ENHANCEMENT: History: Altered mental status. Comparison: 07-07-18 FINDINGS: Generalized ventricular and sulcal prominence with decreased attenuation of the periventricular white matter with some chronic white matter change. There is no hemorrhage or mass effect demonstrated. Ma stoid air cells are clear. There is mucosal change within the ethmoid and maxillary sinuses, more on the right side. IMPRESSION: No acute intracranial abnormalities. POS: [facility]
[2020-07-06] MEDS ORDERED: cefTRIAXone\\ROCEPHIN 1 GM VIAL ONE (22:13)
--- NOTE | 2020-07-06 23:44 | PDOC.HHP ---
Hospitalist HPI - History of Present Illness AMS History of Present Illness: This is an 80-year-old female patient with a history of gastric ulcers, hyperlipidemia and seizures who was brought in by EMS on account of altered mental status. Of note she was at [facility] emergency room earlier today on account of cough and shortness of breath. Her Covid test turned out positive and she was discharged at the time to go home. Son noted on the way home that she was becoming confused and was unable to walk and get out of the vehicle. The point EMS was activated and she was brought here for further management. At presentation her blood pressure was 107/68, respiratory rate 24, pulse 73, temperature 98.6 saturation 93% on room air. CBC was generally unremarkable besides a mild anemia of 11.9, creatinine was elevated at 1.53 from a baseline of 0.95 over a year ago. Chest x-ray showed no acute intrathoracic events and CT scan of the head showed no acute intracranial abnormalities. UA showed 11-20 WBCs, 4+ bacteria. She was started on Rocephin and IV fluids. Hospitalist team consulted for admission Hospitalist ROS - Review of Systems Constitutional: denies: fever, chills, sweats, weakness Cardiovascular: denies: chest pain, palpitations, orthopnea, paroxysmal noc. dyspnea Gastrointestinal: denies: nausea, vomiting, abdominal pain Genitourinary: denies: dysuria, frequency, incontinence Musculoskeletal: denies: neck pain Neurological: denies: weakness, numbness, incoordination All other systems reviewed; all pertinent +/- noted in HPI/Subj Hospitalist History - Past Medical History Other Medical History: Hypertension, gastric ulcer, hyperlipidemia, seizures, - Past Surgical History Other Surgical History: Surgeries: Appendectomy, cholecystectomy, hernia repair, bilateral knee re placements, also surgery - Family History Family History: reports: no pertinent history - Social History Smoking Status: Never smoker Alcohol: reports: None Drugs: reports: none Living Situation: With Family - Exam General Appearance: awake alert General - other findings: Morbidly obese Eye: PERRL, anicteric sclera Heart: RRR, no murmur, no gallops, no rubs Respiratory: CTAB, no wheezes, no rales, no ronchi Gastrointestinal: soft, non-tender Extremities: no cyanosis, no clubbing, no edema Extremities - other findings: Tender on leg palpation bilaterally. Neurological: cranial nerve grossly intact, no focal deficits Psychiatric: A&O x 3, flat affect Hospitalist Results - Labs Result Diagrams: 07/06/20 19:34 07/06/20 19:34 Lab results: WBC 6.8 thou/uL (4.8-10.8) 07/06/20 19:34 Hgb 11.9 g/dL (12.0-16.0) L 07/06/20 19:34 Hct 38.2 % (36.0-47.0) 07/06/20 19:34 MCV 84.1 fL (78.0-98.0) 07/06/20 19:34 Plt Count 199 thou/uL (130-400) 07/06/20 19:34 Neutrophils % 75.9 % (42.0-75.0) H 07/06/20 19:34 Sodium 139 mmol/L (136-145) 07/06/20 19:34 Potassium 3.6 mmol/L (3.5-5.1) 07/06/20 19:34 Chloride 96 mmol/L (98-107) L 07/06/20 19:34 Carbon Dioxide 28 mmol/L (23-31) 07/06/20 19:34 BUN 16 mg/dL (9.8-20.1) 07/06/20 19:34 Creatinine 1.53 mg/dL (0.6-1.1) H 07/06/20 19:34 Glucose 135 mg/dL (83-110) H 07/06/20 19:34 Lactic Acid 2.0 mmol/L (0.5-2.2) 07/06/20 19:34 Calcium 8.5 mg/dL (7.8-10.44) 07/06/20 19:34 Total Bilirubin 0.7 mg/dL (0.2-1.2) 07/06/20 19:34 AST 25 U/L (5-34) 07/06/20 19:34 ALT 12 U/L (8-55) 07/06/20 19:34 Alkaline Phosphatase 80 U/L (40-110) 07/06/20 19:34 Serum Total Protein 8.1 g/dL (6.0-8.3) 07/06/20 19:34 Albumin 3.8 g/dL (3.4-4.8) 07/06/20 19:34 Lipase 11 U/L (8-78) 07/06/20 19:34 Urine Ketones Trace mg/dL (Negative) A 07/06/20 19:05 Urine Blood Negative (Negative) 07/06/20 19:05 Urine Nitrite Negative (Negative) 07/06/20 19:05 Ur Leukocyte Esterase Negative (Negative) 07/06/20 19:05 Urine WBC 11-20 HPF (0-3) A 07/06/20 19:05 Ur Squamous Epith Cells 0-3 HPF (0-3) 07/06/20 19:05 Urine Bacteria 4+ HPF (None Seen) A 07/06/20 19:05 Hospitalist H&P A/P - Plan Plan: This is an 80-year-old female patient history of hypertension, sickle cell disease who tested positive for Covid earlier today presenting with altered mental status and urinalysis concerning for UTI. Acute encephalopathy Likely due to UTI in setting of Covid infection Resident ceftriaxonewe will continue Follow-up cultures ROMY creatinine 1.53 from a baseline of 0.95 from a year ago. Possibly prerenal Gentle hydration Monitor BMP COVID-19 infection No pneumonia at the moment Start vitamin C and zinc Hold steroids and remdesivir Monitoras needed oxygen. Morbid obesity next VT prophylaxisLovenox CODE STATUSfull code
[2020-07-07] MEDS: cefTRIAXone\\ROCEPHIN 1 GM in Sodium Chloride 0.9% 100 ML IVPB SCH (00:46)
[2020-07-07] MEDS: Sodium Chloride 0.9% 1,000 ML IV SCH ×2 (01:00→11:56)
[2020-07-07 06:12] LABS: #Basophils 0.1 thou/uL (0.0-0.2); #Lymphocytes 0.8 thou/uL (1.20-3.40); #Monocytes 0.5 thou/uL (0.11-0.59); %Basophils 0.9 % (0.0-1.0); %Eosinophils 0.5 % (0.0-10.0); %Lymphocytes 14.6 % (21.0-51.0); %Monocytes 9.7 % (0.0-10.0); %Neutrophils 74.3 % (42.0-75.0); Mean Corpuscular HGB CONC 30.6 g/dL (32.0-36.0); Mean Corpuscular Volume 84.9 fL (78.0-98.0); Mean Platelet Volume 8.3 fL (7.4-10.4); Platelet Count 149 thou/uL (130-400); RBC Distribution Width 14.3 % (11.5-14.5); Red Blood Cell (RBC) Count 4.24 mill/uL (4.20-5.40); White Blood Cell (WBC) Count 5.3 thou/uL (4.8-10.8)
[2020-07-07 06:30] LABS: Anion Gap 19 mmol/L (10-20); BUN (Urea Nitrogen) 18 mg/dL (9.8-20.1); Calc. Creatinine Clearance 0 mL/min (70-130); Calcium 7.8 mg/dL (7.8-10.44); Carbon Dioxide 24 mmol/L (23-31); Chloride 101 mmol/L (98-107); Glucose 100 mg/dL (83-110); Potassium 3.8 mmol/L (3.5-5.1); Sodium 140 mmol/L (136-145)
[2020-07-07] MEDS: Ascorbic Acid 500 mg Chewable Tablet PO SCH (07:41)
[2020-07-07] MEDS: Zinc Sulfate 220 MG CAP PO SCH (07:41)
[2020-07-07] MEDS: Cholecalciferol (Vitamin D3) 400 UNITS TAB PO SCH (07:41)
[2020-07-07] MEDS ORDERED: Dexamethasone 20 MG/5 ML VIAL SLOW IVP SCH (09:00)
[2020-07-07] MEDS ORDERED: Dexamethasone 4 mg/ml Vial SLOW IVP SCH (09:00)
[2020-07-07] MEDS ORDERED: FLU VACC QS2020-21(65YR UP)/PF 240 MCG/0.7 ML SYRINGE IM ONE (09:00)
--- NOTE | 2020-07-07 17:40 | PDOC.HOSPP ---
- Subjective Encounter Date: 07/07/20 Encounter Time: 17:39 Subjective: Ms. Black was seen today in follow-up of metabolic encephalopathy, ad COVID infection. She is able to tell me where she is the year and month. She is able to tell me she is in the hospital due to " They say I have COVID ". She is however slow the respond, and will constantly make grunting noises, which she says she is not haveing shortness of breath or pain. - Objective Vital Signs & Weight: Vital Signs (12 hours) Temp Pulse Resp BP BP Pulse Ox 07/07/20 15:20 98.0 F 98 24 H 179/94 H 92 L 07/07/20 12:02 99.6 F 91 24 H 176/94 H 98 07/07/20 07:54 100.3 F H 86 24 H 144/92 H 96 07/07/20 05:46 97.9 F 83 18 158/91 H 100 Weight Weight 299 lb 2 oz Result Diagrams: 07/07/20 06:04 07/07/20 06:04 Additional Labs: Accuchecks 07/06/20 18:30 POC Glucose 155 H Hospitalist ROS - Medication Medications: Active Medications Generic Name Dose Route Start Last Admin Trade Name Freq PRN Reason Stop Dose Admin Ascorbic Acid 1,000 mg 07/07/20 09:00 07/07/20 07:41 Ascorbic Acid 500 Mg Chewable Tablet PO 1,000 mg DAILY CHUCKY Administration Cholecalciferol 400 units 07/07/20 09:00 07/07/20 07:41 Cholecalciferol (Vitamin D3) 400 Units Tab PO 400 units DAILY CHUCKY Administration Ceftriaxone Sodium 1 gm/ 100 mls @ 200 mls/hr 07/06/20 23:59 07/07/20 00:46 Sodium Chloride IVPB Not Given Q24HR CHUCKY Sodium Chloride 1,000 mls @ 100 mls/hr 07/06/20 23:45 07/07/20 11:56 Normal Saline 0.9% IV 1,000 mls .Q10H CHUCKY Administration Zinc Sulfate 220 mg 07/07/20 09:00 07/07/20 07:41 Zinc Sulfate 220 Mg Cap PO 220 mg DAILY CHUCKY Administration - Exam Eye: PERRL, anicteric sclera Heart: RRR, no murmur, no gallops, no rubs, normal peripheral pulses Gastrointestinal: soft, non-tender, non-distended, normal bowel sounds, no palpable masses, no hepatomegaly, no splenomegaly Extremities: no cyanosis, no clubbing, 2+ LE edema Hosp A/P (1) Encephalopathy acute Code(s): G93.40 - ENCEPHALOPATHY, UNSPECIFIED Status: Acute (2) Physical deconditioning Code(s): R53.81 - OTHER MALAISE Status: Acute (3) UTI (urinary tract infection) Status: Acute (4) HTN (hypertension) Code(s): I10 - ESSENTIAL (PRIMARY) HYPERTENSION Status: Chronic Qualifiers: Hypertension type: essential hypertension Qualified Code(s): I10 - Essential (primary) hypertension (5) Morbid obesity with BMI of 40.0-44.9, adult Code(s): E66.01 - MORBID (SEVERE) OBESITY DUE TO EXCESS CALORIES; Z68.41 - BODY MASS INDEX [BMI]40.0-44.9, ADULT Status: Chronic (6) COVID-19 virus infection Code(s): U07.1 - COVID-19 Status: Acute - Plan * Metabolic encephalopathy- liekly due to a combination of COVID infection as well as UTI. * COVID infection- other than generalized weakness and mild encephalopathy, this is relatively asymptomatic. However , I am not sure when is the start or her symptoms, ad she could still be early in the infection * UTI- continue Rocephin pending culture results * HTN- reconcile and re-start her home medications *
[2020-07-07] MEDS: Atorvastatin Calcium 20 MG TAB PO SCH (20:48)
[2020-07-07] MEDS: Apixaban 5 MG TAB PO SCH (20:48)
[2020-07-07] MEDS: Gabapentin 300 MG CAP PO SCH (20:48)
[2020-07-07] MEDS: levETIRAcetam 500 MG TAB PO SCH (20:50)
[2020-07-08] MEDS: cefTRIAXone\\ROCEPHIN 1 GM in Sodium Chloride 0.9% 100 ML IVPB SCH (01:00)
[2020-07-08 06:41] LABS: #Lymphocytes 0.9 thou/uL (1.20-3.40); #Monocytes 0.4 thou/uL (0.11-0.59); #Neutrophils 4.1 thou/uL (1.40-6.50); %Basophils 0.3 % (0.0-1.0); %Eosinophils 0.2 % (0.0-10.0); %Lymphocytes 17.1 % (21.0-51.0); %Neutrophils 74.3 % (42.0-75.0); Hemoglobin 10.3 g/dL (12.0-16.0); Mean Corpuscular Hemoglobin 26.1 pg (27.0-31.0); Mean Corpuscular Volume 84.3 fL (78.0-98.0); Mean Platelet Volume 7.7 fL (7.4-10.4); Platelet Count 217 thou/uL (130-400); RBC Distribution Width 14.3 % (11.5-14.5); Red Blood Cell (RBC) Count 3.96 mill/uL (4.20-5.40); White Blood Cell (WBC) Count 5.5 thou/uL (4.8-10.8)
[2020-07-08 07:05] LABS: Anion Gap 13 mmol/L (10-20); BUN (Urea Nitrogen) 14 mg/dL (9.8-20.1); Calc. Creatinine Clearance 109 mL/min (70-130); Calcium 7.6 mg/dL (7.8-10.44); Carbon Dioxide 26 mmol/L (23-31); Chloride 104 mmol/L (98-107); Glucose 111 mg/dL (83-110); Potassium 3.4 mmol/L (3.5-5.1); Sodium 140 mmol/L (136-145)
[2020-07-08] MEDS ORDERED: Benzonatate 100 MG CAP PO SCH (07:15)
[2020-07-08] MEDS: Ascorbic Acid 500 mg Chewable Tablet PO SCH (07:34)
[2020-07-08] MEDS: Apixaban 5 MG TAB PO SCH ×2 (07:34→20:33)
[2020-07-08] MEDS: Cholecalciferol (Vitamin D3) 400 UNITS TAB PO SCH (07:35)
[2020-07-08] MEDS: Zinc Sulfate 220 MG CAP PO SCH (07:35)
[2020-07-08] MEDS: Carvedilol 25 MG TAB PO SCH ×2 (07:35→16:51)
[2020-07-08] MEDS: levETIRAcetam 500 MG TAB PO SCH ×2 (07:35→20:33)
[2020-07-08] MEDS ORDERED: hydrALAZINE 20 MG/ML VIAL SLOW IVP PRN (12:15)
[2020-07-08] MEDS ORDERED: Labetalol HCl 100 MG/20 ML VIAL SLOW IVP PRN (12:15)
[2020-07-08] MEDS: Amlodipine 5 MG TAB PO SCH (12:50)
[2020-07-08] MEDS: Benzonatate 100 MG CAP PO PRN (13:57)
[2020-07-08] MEDS: Acetaminophen 325 MG TAB PO PRN ×2 (16:51→20:33)
--- NOTE | 2020-07-08 18:37 | PDOC.HOSPP ---
- Subjective Encounter Date: 07/08/20 Encounter Time: 18:34 Subjective: Ms. Black was seen today in follow-up. She appears about the same today as yesterday. She does not have any new complaints. She is alert to person place and time. - Objective Vital Signs & Weight: Vital Signs (12 hours) Temp Pulse Resp BP BP Pulse Ox 07/08/20 17:35 102.1 F H 130/83 07/08/20 17:21 102.1 F H 07/08/20 16:40 101.3 F H 100 17 173/105 H 93 L 07/08/20 15:45 172/120 H 07/08/20 14:00 99.6 F 174/103 H 07/08/20 12:50 85 07/08/20 11:00 101.4 F H 85 21 H 173/111 H 98 07/08/20 07:48 98.7 F 80 20 170/104 H 170/104 H 99 Weight Weight 299 lb 2 oz I&O: 07/07/20 07/08/20 07/09/20 06:59 06:59 06:59 Intake Total 500 Output Total 650 1000 Balance -650 -500 Result Diagrams: 07/08/20 06:17 07/08/20 06:17 Hospitalist ROS - Medication Medications: Active Medications Generic Name Dose Route Start Last Admin Trade Name Freq PRN Reason Stop Dose Admin Acetaminophen 650 mg 07/08/20 15:06 07/08/20 16:51 Acetaminophen 325 Mg Tab PO 650 mg Q4H PRN Administration Headache/Fever or Pain Amlodipine Besylate 5 mg 07/08/20 13:00 07/08/20 12:50 Amlodipine 5 Mg Tab PO 5 mg 1300 CHUCKY Administration Apixaban 5 mg 07/07/20 21:00 07/08/20 07:34 Apixaban 5 Mg Tab PO 5 mg BID CHUCKY Administration Ascorbic Acid 1,000 mg 07/07/20 09:00 07/08/20 07:34 Ascorbic Acid 500 Mg Chewable Tablet PO 1,000 mg DAILY CHUCKY Administration Atorvastatin Calcium 20 mg 07/07/20 21:00 07/07/20 20:48 Atorvastatin Calcium 20 Mg Tab PO 20 mg HS CHUCKY Administration Benzonatate 100 mg 07/08/20 07:13 07/08/20 13:57 Benzonatate 100 Mg Cap PO 100 mg BIDPRN PRN Administration COUGH Carvedilol 25 mg 07/08/20 08:00 07/08/20 16:51 Carvedilol 25 Mg Tab PO 25 mg BID-WM CHUCKY Administration Cholecalciferol 400 units 07/07/20 09:00 07/08/20 07:35 Cholecalciferol (Vitamin D3) 400 Units Tab PO 400 units DAILY CHUCKY Administration Gabapentin 300 mg 07/07/20 21:00 07/07/20 20:48 Gabapentin 300 Mg Cap PO 300 mg HS CHUCKY Administration Hydralazine HCl 10 mg 07/08/20 12:15 07/08/20 15:45 Hydralazine 20 Mg/Ml Vial SLOW IVP 10 mg Q4H PRN Administration SBP > 180 and HR < 70 Ceftriaxone Sodium 1 gm/ 100 mls @ 200 mls/hr 07/06/20 23:59 07/08/20 01:00 Sodium Chloride IVPB 100 mls Q24HR CHUCKY Administration Levetiracetam 500 mg 07/07/20 21:00 07/08/20 07:35 Levetiracetam 500 Mg Tab PO 500 mg BID CHUCKY Administration Pantoprazole Sodium 40 mg 07/08/20 09:00 07/08/20 07:35 Pantoprazole 40 Mg Tab PO 40 mg DAILY CHUCKY Administration Sodium Chloride 10 ml 07/08/20 12:30 07/08/20 15:00 Flush - Normal Saline 10 Ml Syringe IVF 10 ml PRN PRN Administration Saline Flush Zinc Sulfate 220 mg 07/07/20 09:00 07/08/20 07:35 Zinc Sulfate 220 Mg Cap PO 220 mg DAILY CHUCKY Administration - Exam Eye: PERRL, anicteric sclera Heart: RRR, no murmur, no gallops, no rubs, normal peripheral pulses Respiratory: CTAB, no wheezes, no rales, no ronchi, normal chest expansion, no tachypnea Gastrointestinal: soft, non-tender, non-distended, normal bowel sounds, no palpable masses Extremities: no cyanosis, 1+ LE edema Hosp A/P (1) Encephalopathy acute Code(s): G93.40 - ENCEPHALOPATHY, UNSPECIFIED Status: Acute (2) Physical deconditioning Code(s): R53.81 - OTHER MALAISE Status: Acute (3) UTI (urinary tract infection) Status: Acute (4) HTN (hypertension) Code(s): I10 - ESSENTIAL (PRIMARY) HYPERTENSION Status: Chronic Qualifiers: Hypertension type: essential hypertension Qualified Code(s): I10 - Essential (primary) hypertension (5) Morbid obesity with BMI of 40.0-44.9, adult Code(s): E66.01 - MORBID (SEVERE) OBESITY DUE TO EXCESS CALORIES; Z68.41 - BODY MASS INDEX [BMI]40.0-44.9, ADULT Status: Chronic (6) COVID-19 virus infection Code(s): U07.1 - COVID-19 Status: Acute (7) Seizures Code(s): R56.9 - UNSPECIFIED CONVULSIONS Status: Chronic - Plan * Metabolic encephalopathy-she appears more weak, than encephalopathic * COVID infection- She is not requiring oxygen, but has developed a high fever- will monitor her inflammatory markers * UTI- continue Rocephin - her urine is growing a gram negative chandler, but it is in low CFUs * HTN- Blood pressure is still elevated- will add Amlodipine to her regimen. * Seizure disorder- continue Khadra
[2020-07-08] MEDS: Atorvastatin Calcium 20 MG TAB PO SCH (20:33)
[2020-07-08] MEDS: Gabapentin 300 MG CAP PO SCH (20:33)
[2020-07-09] MEDS: cefTRIAXone\\ROCEPHIN 1 GM in Sodium Chloride 0.9% 100 ML IVPB SCH (00:11)
[2020-07-09 05:52] LABS: #Lymphocytes 0.9 thou/uL (1.20-3.40); #Monocytes 0.4 thou/uL (0.11-0.59); #Neutrophils 3.8 thou/uL (1.40-6.50); %Basophils 0.3 % (0.0-1.0); %Eosinophils 0.7 % (0.0-10.0); %Lymphocytes 17.7 % (21.0-51.0); %Monocytes 7.5 % (0.0-10.0); %Neutrophils 73.8 % (42.0-75.0); Hemoglobin 10.1 g/dL (12.0-16.0); Mean Corpuscular HGB CONC 30.7 g/dL (32.0-36.0); Mean Corpuscular Hemoglobin 25.9 pg (27.0-31.0); Mean Corpuscular Volume 84.5 fL (78.0-98.0); Mean Platelet Volume 7.5 fL (7.4-10.4); Platelet Count 221 thou/uL (130-400); RBC Distribution Width 14.4 % (11.5-14.5); White Blood Cell (WBC) Count 5.1 thou/uL (4.8-10.8)
[2020-07-09 06:17] LABS: Anion Gap 13 mmol/L (10-20); BUN (Urea Nitrogen) 13 mg/dL (9.8-20.1); Calc. Creatinine Clearance 106 mL/min (70-130); Calcium 7.9 mg/dL (7.8-10.44); Carbon Dioxide 29 mmol/L (23-31); Chloride 103 mmol/L (98-107); Glucose 96 mg/dL (83-110); Potassium 3.5 mmol/L (3.5-5.1); Sodium 141 mmol/L (136-145)
[2020-07-09] MEDS: Cholecalciferol (Vitamin D3) 400 UNITS TAB PO SCH (07:59)
[2020-07-09] MEDS: Apixaban 5 MG TAB PO SCH ×2 (07:59→20:45)
[2020-07-09] MEDS: Furosemide 80 MG TAB PO SCH (07:59)
[2020-07-09] MEDS: levETIRAcetam 500 MG TAB PO SCH ×2 (07:59→20:46)
[2020-07-09] MEDS: Ascorbic Acid 500 mg Chewable Tablet PO SCH (07:59)
[2020-07-09] MEDS: Carvedilol 25 MG TAB PO SCH ×2 (08:00→17:36)
[2020-07-09] MEDS: Acetaminophen 325 MG TAB PO PRN ×2 (08:00→20:45)
[2020-07-09] MEDS: Zinc Sulfate 220 MG CAP PO SCH (08:00)
[2020-07-09] MEDS: Benzonatate 100 MG CAP PO PRN (08:00)
[2020-07-09] MEDS: Dexamethasone 6 MG in Sodium Chloride 0.9% 50 ML IVPB SCH (08:16)
[2020-07-09] MEDS: Amlodipine 5 MG TAB PO SCH (13:28)
--- NOTE | 2020-07-09 17:26 | PDOC.HOSPP ---
- Subjective Encounter Date: 07/09/20 Encounter Time: 17:22 Subjective: Ms. Black was seen today in follow-up. She does not have any complaints. She is breathing fine. - Objective Vital Signs & Weight: Vital Signs (12 hours) Temp Pulse Resp BP BP BP Pulse Ox 07/09/20 16:22 98.7 F 75 16 151/91 H 100 07/09/20 16:00 98.2 F 75 20 143/84 H 100 07/09/20 14:27 117/76 07/09/20 13:28 76 07/09/20 12:27 99.2 F 76 16 116/72 100 07/09/20 08:07 99.3 F 78 15 136/84 99 07/09/20 08:00 99 07/09/20 05:48 97.8 F 82 18 131/82 100 Weight Weight 299 lb 2 oz I&O: 07/08/20 07/09/20 07/10/20 06:59 06:59 06:59 Intake Total 500 Output Total 650 1000 Balance -650 -500 Result Diagrams: 07/09/20 05:29 07/09/20 05:29 Additional Labs: Accuchecks 07/09/20 07/09/20 16:24 12:24 POC Glucose 131 H 123 H Hospitalist ROS - Medication Medications: Active Medications Generic Name Dose Route Start Last Admin Trade Name Freq PRN Reason Stop Dose Admin Acetaminophen 650 mg 07/08/20 15:06 07/09/20 08:00 Acetaminophen 325 Mg Tab PO 650 mg Q4H PRN Administration Headache/Fever or Pain Amlodipine Besylate 5 mg 07/08/20 13:00 07/09/20 13:28 Amlodipine 5 Mg Tab PO 5 mg 1300 CHUCKY Administration Apixaban 5 mg 07/07/20 21:00 07/09/20 07:59 Apixaban 5 Mg Tab PO 5 mg BID CHUCKY Administration Ascorbic Acid 1,000 mg 07/07/20 09:00 07/09/20 07:59 Ascorbic Acid 500 Mg Chewable Tablet PO 1,000 mg DAILY CHUCKY Administration Atorvastatin Calcium 20 mg 07/07/20 21:00 07/08/20 20:33 Atorvastatin Calcium 20 Mg Tab PO 20 mg HS CHUCKY Administration Benzonatate 100 mg 07/08/20 07:13 07/09/20 08:00 Benzonatate 100 Mg Cap PO 100 mg BIDPRN PRN Administration COUGH Carvedilol 25 mg 07/08/20 08:00 07/09/20 08:00 Carvedilol 25 Mg Tab PO 25 mg BID-WM CHUCKY Administration Cholecalciferol 400 units 07/07/20 09:00 07/09/20 07:59 Cholecalciferol (Vitamin D3) 400 Units Tab PO 400 units DAILY CUHCKY Administration Furosemide 80 mg 07/09/20 07:30 07/09/20 07:59 Furosemide 80 Mg Tab PO 80 mg DAILY-AC CHUCKY Administration Gabapentin 300 mg 07/07/20 21:00 07/08/20 20:33 Gabapentin 300 Mg Cap PO 300 mg HS CHUCKY Administration Hydralazine HCl 10 mg 07/08/20 12:15 07/08/20 15:45 Hydralazine 20 Mg/Ml Vial SLOW IVP 10 mg Q4H PRN Administration SBP > 180 and HR < 70 Dexamethasone 6 mg/ Sodium 51.5 mls @ 100 mls/hr 07/09/20 09:00 07/09/20 08:16 Chloride IVPB 51.5 mls DAILY CHUCKY Administration Levetiracetam 500 mg 07/07/20 21:00 07/09/20 07:59 Levetiracetam 500 Mg Tab PO 500 mg BID CHUCKY Administration Pantoprazole Sodium 40 mg 07/08/20 09:00 07/09/20 08:00 Pantoprazole 40 Mg Tab PO 40 mg DAILY CHUCKY Administration Sodium Chloride 10 ml 07/08/20 21:00 07/09/20 08:16 Flush - Normal Saline 10 Ml Syringe IVF 10 ml Q12HR CHUCKY Administration Sodium Chloride 10 ml 07/08/20 12:30 07/08/20 15:00 Flush - Normal Saline 10 Ml Syringe IVF 10 ml PRN PRN Administration Saline Flush Zinc Sulfate 220 mg 07/07/20 09:00 07/09/20 08:00 Zinc Sulfate 220 Mg Cap PO 220 mg DAILY CHUCKY Administration - Exam Eye: PERRL, anicteric sclera Heart: RRR, no murmur, no gallops, no rubs, normal peripheral pulses Respiratory: CTAB, no wheezes, no rales, no ronchi, normal chest expansion Gastrointestinal: soft, non-tender, non-distended, normal bowel sounds, no palpable masses, no hepatomegaly, no splenomegaly Extremities: no cyanosis, 1+ LE edema (pulses are palpable) Hosp A/P (1) Encephalopathy acute Code(s): G93.40 - ENCEPHALOPATHY, UNSPECIFIED Status: Acute (2) Physical deconditioning Code(s): R53.81 - OTHER MALAISE Status: Acute (3) UTI (urinary tract infection) Status: Acute (4) HTN (hypertension) Code(s): I10 - ESSENTIAL (PRIMARY) HYPERTENSION Status: Chronic Qualifiers: Hypertension type: essential hypertension Qualified Code(s): I10 - Essential (primary) hypertension (5) Morbid obesity with BMI of 40.0-44.9, adult Code(s): E66.01 - MORBID (SEVERE) OBESITY DUE TO EXCESS CALORIES; Z68.41 - BODY MASS INDEX [BMI]40.0-44.9, ADULT Status: Chronic (6) COVID-19 virus infection Code(s): U07.1 - COVID-19 Status: Acute (7) Seizures Code(s): R56.9 - UNSPECIFIED CONVULSIONS Status: Chronic - Plan * Metabolic encephalopathy-resolved * Generalized weakness- continue PT/OT and will place a snf request * COVID infection- Her main symptom is weakness- she only needed oxyge for a short period. WIll discontinue Decadron, so that she has an adequate early immune response * I spoke with her son, who tells me she was able to get out of the bed on her own, and make it to the bathroom. She would need help with toileting and bathing. So she is much weaker than baseline. Also he gave consent for Remdesivir should she require it. The risks and benefit were discussed as well as the EUA status of the drug. * UTI- contaminated sample- will discontinue Rocephin * HTN- Blood pressure is still elevated- better * Seizure disorder- continue Keppra
[2020-07-09] MEDS: Gabapentin 300 MG CAP PO SCH (20:46)
[2020-07-09] MEDS: Atorvastatin Calcium 20 MG TAB PO SCH (20:46)
[2020-07-10 06:26] LABS: #Lymphocytes 0.9 thou/uL (1.20-3.40); #Monocytes 0.2 thou/uL (0.11-0.59); #Neutrophils 5.8 thou/uL (1.40-6.50); %Eosinophils 0.1 % (0.0-10.0); %Lymphocytes 12.7 % (21.0-51.0); %Monocytes 3.4 % (0.0-10.0); %Neutrophils 83.8 % (42.0-75.0); Hemoglobin 10.9 g/dL (12.0-16.0); Mean Corpuscular HGB CONC 30.5 g/dL (32.0-36.0); Mean Corpuscular Hemoglobin 25.6 pg (27.0-31.0); Mean Corpuscular Volume 83.9 fL (78.0-98.0); Mean Platelet Volume 7.9 fL (7.4-10.4); Platelet Count 245 thou/uL (130-400); RBC Distribution Width 14.1 % (11.5-14.5); Red Blood Cell (RBC) Count 4.24 mill/uL (4.20-5.40); White Blood Cell (WBC) Count 6.9 thou/uL (4.8-10.8)
[2020-07-10 06:48] LABS: Anion Gap 13 mmol/L (10-20); BUN (Urea Nitrogen) 18 mg/dL (9.8-20.1); Calc. Creatinine Clearance 115 mL/min (70-130); Calcium 8.1 mg/dL (7.8-10.44); Carbon Dioxide 27 mmol/L (23-31); Chloride 103 mmol/L (98-107); Glucose 117 mg/dL (83-110); Potassium 3.5 mmol/L (3.5-5.1); Sodium 139 mmol/L (136-145)
[2020-07-10] MEDS: Dexamethasone 6 MG in Sodium Chloride 0.9% 50 ML IVPB SCH (09:15)
[2020-07-10] MEDS: Zinc Sulfate 220 MG CAP PO SCH (09:16)
[2020-07-10] MEDS: Carvedilol 25 MG TAB PO SCH ×2 (09:16→16:58)
[2020-07-10] MEDS: Cholecalciferol (Vitamin D3) 400 UNITS TAB PO SCH (09:16)
[2020-07-10] MEDS: levETIRAcetam 500 MG TAB PO SCH ×2 (09:16→20:59)
[2020-07-10] MEDS: Ascorbic Acid 500 mg Chewable Tablet PO SCH (09:16)
[2020-07-10] MEDS: Furosemide 80 MG TAB PO SCH (09:17)
[2020-07-10] MEDS: Apixaban 5 MG TAB PO SCH ×2 (09:17→20:59)
--- NOTE | 2020-07-10 15:52 | PDOC.HOSPP ---
- Subjective Encounter Date: 07/10/20 Encounter Time: 15:51 Subjective: Ms. Black was seen today in follow-up of generalized weakness and COVID -19 infection. She does not have any complaints. - Objective Vital Signs & Weight: Vital Signs (12 hours) Temp Pulse Resp BP Pulse Ox 07/10/20 12:00 100.2 F H 87 16 157/112 H 94 L 07/10/20 08:00 98.9 F 76 16 156/96 H 99 Weight Weight 299 lb 2 oz I&O: 07/09/20 07/10/20 07/11/20 06:59 06:59 06:59 Intake Total 500 500 Output Total 1000 700 Balance -500 -200 Result Diagrams: 07/10/20 05:41 07/10/20 05:41 Additional Labs: Accuchecks 07/09/20 07/09/20 21:15 16:24 POC Glucose 144 H 131 H Hospitalist ROS - Medication Medications: Active Medications Generic Name Dose Route Start Last Admin Trade Name Freq PRN Reason Stop Dose Admin Acetaminophen 650 mg 07/08/20 15:06 07/09/20 20:45 Acetaminophen 325 Mg Tab PO 650 mg Q4H PRN Administration Headache/Fever or Pain Amlodipine Besylate 5 mg 07/08/20 13:00 07/09/20 13:28 Amlodipine 5 Mg Tab PO 5 mg 1300 CHUCKY Administration Apixaban 5 mg 07/07/20 21:00 07/10/20 09:17 Apixaban 5 Mg Tab PO 5 mg BID CHUCKY Administration Ascorbic Acid 1,000 mg 07/07/20 09:00 07/10/20 09:16 Ascorbic Acid 500 Mg Chewable Tablet PO 1,000 mg DAILY CHUCKY Administration Atorvastatin Calcium 20 mg 07/07/20 21:00 07/09/20 20:46 Atorvastatin Calcium 20 Mg Tab PO 20 mg HS CHUCKY Administration Benzonatate 100 mg 07/08/20 07:13 07/09/20 08:00 Benzonatate 100 Mg Cap PO 100 mg BIDPRN PRN Administration COUGH Carvedilol 25 mg 07/08/20 08:00 07/10/20 09:16 Carvedilol 25 Mg Tab PO 25 mg BID-WM CHUCKY Administration Cholecalciferol 400 units 07/07/20 09:00 07/10/20 09:16 Cholecalciferol (Vitamin D3) 400 Units Tab PO 400 units DAILY CHUCKY Administration Furosemide 80 mg 07/09/20 07:30 07/10/20 09:17 Furosemide 80 Mg Tab PO 80 mg DAILY-AC CHUCKY Administration Gabapentin 300 mg 07/07/20 21:00 07/09/20 20:46 Gabapentin 300 Mg Cap PO 300 mg HS CHUCKY Administration Hydralazine HCl 10 mg 07/08/20 12:15 07/08/20 15:45 Hydralazine 20 Mg/Ml Vial SLOW IVP 10 mg Q4H PRN Administration SBP > 180 and HR < 70 Dexamethasone 6 mg/ Sodium 51.5 mls @ 100 mls/hr 07/09/20 09:00 07/10/20 09:15 Chloride IVPB 51.5 mls DAILY CHUCKY Administration Levetiracetam 500 mg 07/07/20 21:00 07/10/20 09:16 Levetiracetam 500 Mg Tab PO 500 mg BID CHUCKY Administration Pantoprazole Sodium 40 mg 07/08/20 09:00 07/10/20 09:16 Pantoprazole 40 Mg Tab PO 40 mg DAILY CHUCKY Administration Sodium Chloride 10 ml 07/08/20 21:00 07/10/20 09:17 Flush - Normal Saline 10 Ml Syringe IVF 10 ml Q12HR CHUCKY Administration Sodium Chloride 10 ml 07/08/20 12:30 07/08/20 15:00 Flush - Normal Saline 10 Ml Syringe IVF 10 ml PRN PRN Administration Saline Flush Zinc Sulfate 220 mg 07/07/20 09:00 07/10/20 09:16 Zinc Sulfate 220 Mg Cap PO 220 mg DAILY CHUCKY Administration - Exam Eye: PERRL, anicteric sclera Heart: RRR, no murmur, no gallops, no rubs, normal peripheral pulses Respiratory: CTAB, no wheezes, no rales, no ronchi Gastrointestinal: soft, non-tender, non-distended, normal bowel sounds, no palpable masses, no hepatomegaly Extremities: no cyanosis, 1+ LE edema Hosp A/P (1) Encephalopathy acute Code(s): G93.40 - ENCEPHALOPATHY, UNSPECIFIED Status: Acute (2) Physical deconditioning Code(s): R53.81 - OTHER MALAISE Status: Acute (3) UTI (urinary tract infection) Status: Acute (4) HTN (hypertension) Code(s): I10 - ESSENTIAL (PRIMARY) HYPERTENSION Status: Chronic Qualifiers: Hypertension type: essential hypertension Qualified Code(s): I10 - Essential (primary) hypertension (5) Morbid obesity with BMI of 40.0-44.9, adult Code(s): E66.01 - MORBID (SEVERE) OBESITY DUE TO EXCESS CALORIES; Z68.41 - BODY MASS INDEX [BMI]40.0-44.9, ADULT Status: Chronic (6) COVID-19 virus infection Code(s): U07.1 - COVID-19 Status: Acute (7) Seizures Code(s): R56.9 - UNSPECIFIED CONVULSIONS Status: Chronic - Plan * Metabolic encephalopathy-resolved * Generalized weakness- continue PT/OT and will place a halfway request * COVID infection- Asymptomatic with the exception of generalized weakness * UTI- contaminated sample- Rocephin - discontinued * HTN- Blood pressure - remains elevated- will increase the dose of Amlodipine * Seizure disorder- continue Khadra
--- NOTE | 2020-07-10 16:27 | PDOC.BPN ---
- Brief Progress Note Encounter Date: 07/10/20 Encounter Time: 16:26 Patient noted to have a high temperature. This is likely from the COVID infection. Blood culture was 1/2 gram positive cocci. Will monitor. If fever persists consider re-culture.
[2020-07-10] MEDS: Amlodipine 5 MG TAB PO SCH (16:54)
[2020-07-10] MEDS: Gabapentin 300 MG CAP PO SCH (20:56)
[2020-07-10] MEDS: Acetaminophen/Codeine 30-300mg Tablet PO PRN (20:57)
[2020-07-10] MEDS: Atorvastatin Calcium 20 MG TAB PO SCH (20:59)
[2020-07-11] MEDS: Dexamethasone 6 MG in Sodium Chloride 0.9% 50 ML IVPB SCH (09:14)
[2020-07-11] MEDS: Zinc Sulfate 220 MG CAP PO SCH (09:15)
[2020-07-11] MEDS: Ascorbic Acid 500 mg Chewable Tablet PO SCH (09:15)
[2020-07-11] MEDS: levETIRAcetam 500 MG TAB PO SCH ×2 (09:15→21:02)
[2020-07-11] MEDS: Amlodipine 10 MG TAB PO SCH (09:15)
[2020-07-11] MEDS: Furosemide 80 MG TAB PO SCH (09:16)
[2020-07-11] MEDS: Cholecalciferol (Vitamin D3) 400 UNITS TAB PO SCH (09:16)
[2020-07-11] MEDS: Carvedilol 25 MG TAB PO SCH ×2 (09:16→17:52)
[2020-07-11] MEDS: Apixaban 5 MG TAB PO SCH ×2 (09:16→21:03)
[2020-07-11] MEDS: Acetaminophen/Codeine 30-300mg Tablet PO PRN (09:22)
[2020-07-11] MEDS: Benzonatate 100 MG CAP PO PRN (10:00)
--- NOTE | 2020-07-11 17:04 | PDOC.HOSPP ---
- Subjective Encounter Date: 07/11/20 Encounter Time: 16:40 Subjective: f/u for COVID PNA/general weakness receiving Dexamethasone/Vit C/D3/Zinc. Remains on RA but admits to persistent cough. - Objective Vital Signs & Weight: Vital Signs (12 hours) Temp Pulse Resp BP Pulse Ox 07/11/20 16:00 98.2 F 72 20 128/74 96 07/11/20 09:15 76 07/11/20 08:00 98.6 F 70 20 126/81 100 07/11/20 07:36 97.6 F 76 20 143/84 H 100 Weight Weight 299 lb 2 oz I&O: 07/10/20 07/11/20 07/12/20 06:59 06:59 06:59 Intake Total 500 850 Output Total 700 1400 Balance -200 -550 Result Diagrams: 07/10/20 05:41 07/10/20 05:41 Additional Labs: Microbiology 07/06/20 19:11 Venous blood - Right Hand Blood Culture - Final Presumptiv Micrococcus/Kocuria 07/06/20 19:05 Urine Straight Catheter Urine Culture - Final Gram Negative Stalin 07/06/20 19:34 Venous blood - Left Hand Blood Culture - Preliminary NO GROWTH AT 48 HOURS Hospitalist ROS - Medication Medications: Active Medications Generic Name Dose Route Start Last Admin Trade Name Genaroq PRN Reason Stop Dose Admin Acetaminophen 650 mg 07/08/20 15:06 07/09/20 20:45 Acetaminophen 325 Mg Tab PO 650 mg Q4H PRN Administration Headache/Fever or Pain Acetaminophen/Codeine Phosphate 1 tab 07/10/20 20:12 07/11/20 09:22 Acetaminophen/Codeine 30-300mg Tablet PO 1 tab Q6H PRN Administration Headache, Aches or Pain Amlodipine Besylate 10 mg 07/11/20 09:00 07/11/20 09:15 Amlodipine 10 Mg Tab PO 10 mg DAILY CHUCKY Administration Apixaban 5 mg 07/07/20 21:00 07/11/20 09:16 Apixaban 5 Mg Tab PO 5 mg BID CHUCKY Administration Ascorbic Acid 1,000 mg 07/07/20 09:00 07/11/20 09:15 Ascorbic Acid 500 Mg Chewable Tablet PO 1,000 mg DAILY CHUCKY Administration Atorvastatin Calcium 20 mg 07/07/20 21:00 07/10/20 20:59 Atorvastatin Calcium 20 Mg Tab PO 20 mg HS CHUCKY Administration Benzonatate 100 mg 07/08/20 07:13 07/11/20 10:00 Benzonatate 100 Mg Cap PO 100 mg BIDPRN PRN Administration COUGH Carvedilol 25 mg 07/08/20 08:00 07/11/20 09:16 Carvedilol 25 Mg Tab PO 25 mg BID-WM CHUCKY Administration Cholecalciferol 400 units 07/07/20 09:00 07/11/20 09:16 Cholecalciferol (Vitamin D3) 400 Units Tab PO 400 units DAILY CHUCKY Administration Furosemide 80 mg 07/09/20 07:30 07/11/20 09:16 Furosemide 80 Mg Tab PO 80 mg DAILY-AC CHUCKY Administration Gabapentin 300 mg 07/07/20 21:00 07/10/20 20:56 Gabapentin 300 Mg Cap PO 300 mg HS CHUCKY Administration Hydralazine HCl 10 mg 07/08/20 12:15 07/08/20 15:45 Hydralazine 20 Mg/Ml Vial SLOW IVP 10 mg Q4H PRN Administration SBP > 180 and HR < 70 Dexamethasone 6 mg/ Sodium 51.5 mls @ 100 mls/hr 07/09/20 09:00 07/11/20 09: 14 Chloride IVPB 51.5 mls DAILY CHUCKY Administration Levetiracetam 500 mg 07/07/20 21:00 07/11/20 09:15 Levetiracetam 500 Mg Tab PO 500 mg BID CHUCKY Administration Pantoprazole Sodium 40 mg 07/08/20 09:00 07/11/20 09:15 Pantoprazole 40 Mg Tab PO 40 mg DAILY CHUCKY Administration Sodium Chloride 10 ml 07/08/20 21:00 07/11/20 09:16 Flush - Normal Saline 10 Ml Syringe IVF 10 ml Q12HR CHUCKY Administration Sodium Chloride 10 ml 07/08/20 12:30 07/08/20 15:00 Flush - Normal Saline 10 Ml Syringe IVF 10 ml PRN PRN Administration Saline Flush Zinc Sulfate 220 mg 07/07/20 09:00 07/11/20 09:15 Zinc Sulfate 220 Mg Cap PO 220 mg DAILY HCUCKY Administration - Exam General Appearance: NAD, awake alert Eye: PERRL, anicteric sclera ENT: normocephalic atraumatic, no oropharyngeal lesions Neck: supple, symmetric, no JVD, no thyromegaly, no lymphadenopathy Heart: RRR, no gallops, no rubs, normal peripheral pulses Heart - other findings: S1, S2 Respiratory: no wheezes, no tachypnea Respiratory - other findings: diminished in bases bilat, occ rhonchi Gastrointestinal: soft, non-tender, non-distended, normal bowel sounds, no palpable masses, no hepatomegaly Gastrointestinal - other findings: obese Extremities: no cyanosis, no clubbing, no edema Skin: normal turgor Neurological: cranial nerve grossly intact, no new deficit Musculoskeletal: normal tone, generalized weakness Psychiatric: A&O x 3, flat affect Hosp A/P (1) COVID-19 virus infection Code(s): U07.1 - COVID-19 Status: Acute Plan: Continue supportive mgmt with Dexamethasone/Vit C/D3/Zinc (2) Acute respiratory failure with hypoxia Code(s): J96.01 - ACUTE RESPIRATORY FAILURE WITH HYPOXIA Status: Acute Plan: Currently remains on room air (3) Encephalopathy acute Code(s): G93.40 - ENCEPHALOPATHY, UNSPECIFIED Status: Acute Plan: Likely metabolic due to #1, improved (4) Physical deconditioning Code(s): R53.81 - OTHER MALAISE Status: Acute Plan: PT/OT for mobilization, ? HH vs SNF (5) HTN (hypertension) Code(s): I10 - ESSENTIAL (PRIMARY) HYPERTENSION Status: Chronic Qualifiers: Hypertension type: essential hypertension Qualified Code(s): I10 - Essential (primary) hypertension Plan: Continue current BP regimen (6) Morbid obesity with BMI of 40.0-44.9, adult Code(s): E66.01 - MORBID (SEVERE) OBESITY DUE TO EXCESS CALORIES; Z68.41 - BODY MASS INDEX [BMI]40.0-44.9, ADULT Status: Chronic - Plan PT/OT, social services coordinator, respiratory therapy, incentive spirometry, out of bed/ambulate, DVT proph w/SCDs Stable overall Continue Dexamethasone Continue Vit C/Zinc/D3 OOB with PT Incentive spirometer q2h ? HH vs SNF AM lab: H/H, creatinine
[2020-07-11] MEDS: Guaifenesin DM 100-10/5 ML UDCUP PO SCH ×2 (17:52→21:03)
[2020-07-11] MEDS: Gabapentin 300 MG CAP PO SCH (21:02)
[2020-07-11] MEDS: Atorvastatin Calcium 20 MG TAB PO SCH (21:02)
[2020-07-12] MEDS: Guaifenesin DM 100-10/5 ML UDCUP PO SCH ×6 (01:18→21:45)
[2020-07-12] MEDS: Acetaminophen/Codeine 30-300mg Tablet PO PRN (05:16)
[2020-07-12 07:00] LABS: Hemoglobin 10.5 g/dL (12.0-16.0); Platelet Count 348 thou/uL (130-400)
[2020-07-12] MEDS: Cholecalciferol (Vitamin D3) 400 UNITS TAB PO SCH (07:58)
[2020-07-12] MEDS: Furosemide 80 MG TAB PO SCH (07:58)
[2020-07-12] MEDS: Zinc Sulfate 220 MG CAP PO SCH (07:58)
[2020-07-12] MEDS: Benzonatate 100 MG CAP PO PRN (07:58)
[2020-07-12] MEDS: Amlodipine 10 MG TAB PO SCH (07:59)
[2020-07-12] MEDS: Ascorbic Acid 500 mg Chewable Tablet PO SCH (07:59)
[2020-07-12] MEDS: levETIRAcetam 500 MG TAB PO SCH ×2 (07:59→21:43)
[2020-07-12] MEDS: Carvedilol 25 MG TAB PO SCH ×2 (07:59→18:00)
[2020-07-12] MEDS: Apixaban 5 MG TAB PO SCH ×2 (07:59→21:43)
[2020-07-12] MEDS: Dexamethasone 6 MG in Sodium Chloride 0.9% 50 ML IVPB SCH (09:11)
--- NOTE | 2020-07-12 15:16 | PDOC.HOSPP ---
- Subjective Encounter Date: 07/12/20 Encounter Time: 15:15 Subjective: f/u for COVID-19/deconditioning/AMS. Remains on RA currently. Not ambulating with PT. - Objective Vital Signs & Weight: Vital Signs (12 hours) Temp Pulse Resp BP Pulse Ox 07/12/20 08:00 95 07/12/20 07:47 98.3 F 70 20 119/77 95 07/12/20 04:00 98.1 F 66 20 128/83 98 Weight Weight 299 lb 2 oz I&O: 07/11/20 07/12/20 07/13/20 06:59 06:59 06:59 Intake Total 850 850 Output Total 1400 1600 Balance -550 -750 Result Diagrams: 07/12/20 06:50 07/12/20 06:50 Additional Labs: Microbiology 07/06/20 19:11 Venous blood - Right Hand Blood Culture - Final Presumptiv Micrococcus/Kocuria 07/06/20 19:05 Urine Straight Catheter Urine Culture - Final Gram Negative Stalin 07/06/20 19:34 Venous blood - Left Hand Blood Culture - Preliminary NO GROWTH AT 48 HOURS Hospitalist ROS - Medication Medications: Active Medications Generic Name Dose Route Start Last Admin Trade Name Freq PRN Reason Stop Dose Admin Acetaminophen 650 mg 07/08/20 15:06 07/09/20 20:45 Acetaminophen 325 Mg Tab PO 650 mg Q4H PRN Administration Headache/Fever or Pain Acetaminophen/Codeine Phosphate 1 tab 07/10/20 20:12 07/12/20 05:16 Acetaminophen/Codeine 30-300mg Tablet PO 1 tab Q6H PRN Administration Headache, Aches or Pain Amlodipine Besylate 10 mg 07/11/20 09:00 07/12/20 07:59 Amlodipine 10 Mg Tab PO 10 mg DAILY CHUCKY Administration Apixaban 5 mg 07/07/20 21:00 07/12/20 07:59 Apixaban 5 Mg Tab PO 5 mg BID CHUCKY Administration Ascorbic Acid 1,000 mg 07/07/20 09:00 07/12/20 07:59 Ascorbic Acid 500 Mg Chewable Tablet PO 1,000 mg DAILY CHUCKY Administration Atorvastatin Calcium 20 mg 07/07/20 21:00 07/11/20 21:02 Atorvastatin Calcium 20 Mg Tab PO 20 mg HS CHUCKY Administration Benzonatate 100 mg 07/08/20 07:13 07/12/20 07:58 Benzonatate 100 Mg Cap PO 100 mg BIDPRN PRN Administration COUGH Carvedilol 25 mg 07/08/20 08:00 07/12/20 07:59 Carvedilol 25 Mg Tab PO 25 mg BID-WM CHUCKY Administration Cholecalciferol 400 units 07/07/20 09:00 07/12/20 07:58 Cholecalciferol (Vitamin D3) 400 Units Tab PO 400 units DAILY CHUCKY Administration Furosemide 80 mg 07/09/20 07:30 07/12/20 07:58 Furosemide 80 Mg Tab PO 80 mg DAILY-AC CHUCKY Administration Gabapentin 300 mg 07/07/20 21:00 07/11/20 21:02 Gabapentin 300 Mg Cap PO 300 mg HS CHUCKY Administration Guaifenesin/Dextromethorphan 15 ml 07/11/20 18:00 07/12/20 15:07 Guaifenesin Dm 100-10/5 Ml Udcup PO 15 ml Q4H CHUCKY Administration Hydralazine HCl 10 mg 07/08/20 12:15 07/08/20 15:45 Hydralazine 20 Mg/Ml Vial SLOW IVP 10 mg Q4H PRN Administration SBP > 180 and HR < 70 Dexamethasone 6 mg/ Sodium 51.5 mls @ 100 mls/hr 07/09/20 09:00 07/12/20 09:11 Chloride IVPB 51.5 mls DAILY CHUCKY Administration Levetiracetam 500 mg 07/07/20 21:00 07/12/20 07:59 Levetiracetam 500 Mg Tab PO 500 mg BID CHUCKY Administration Pantoprazole Sodium 40 mg 07/08/20 09:00 07/12/20 07:59 Pantoprazole 40 Mg Tab PO 40 mg DAILY CHUCKY Administration Sodium Chloride 10 ml 07/08/20 21:00 07/12/20 08:00 Flush - Normal Saline 10 Ml Syringe IVF 10 ml Q12HR CHUCKY Administration Sodium Chloride 10 ml 07/08/20 12:30 07/08/20 15:00 Flush - Normal Saline 10 Ml Syringe IVF 10 ml PRN PRN Administration Saline Flush Zinc Sulfate 220 mg 07/07/20 09:00 07/12/20 07:58 Zinc Sulfate 220 Mg Cap PO 220 mg DAILY CHUCKY Administration - Exam General Appearance: NAD, awake alert Eye: PERRL, anicteric sclera ENT: normocephalic atraumatic, no oropharyngeal lesions Neck: supple, symmetric, no JVD, no thyromegaly, no lymphadenopathy Heart: RRR, no gallops, no rubs, normal peripheral pulses Heart - other findings: S1, S2 Respiratory: no tachypnea Respiratory - other findings: diminished in bases, occ rhonchi Gastrointestinal: soft, non-tender, non-distended, normal bowel sounds, no palpable masses Gastrointestinal - other findings: obese Extremities: no cyanosis, no clubbing, no edema Skin: normal turgor Neurological: cranial nerve grossly intact, no new deficit Musculoskeletal: normal tone, generalized weakness Psychiatric: oriented to person, oriented to place, flat affect Hosp A/P (1) COVID-19 virus infection Code(s): U07.1 - COVID-19 Status: Acute Plan: Continue Vit C/Zinc/D3/Eliquis/Dexamethasone (2) Acute respiratory failure with hypoxia Code(s): J96.01 - ACUTE RESPIRATORY FAILURE WITH HYPOXIA Status: Acute Plan: Resolving (3) Encephalopathy acute Code(s): G93.40 - ENCEPHALOPATHY, UNSPECIFIED Status: Acute Plan: Resolving (4) Physical deconditioning Code(s): R53.81 - OTHER MALAISE Status: Acute Plan: Poor mobility, will need aggressive PT at home with HH, does not want to go to SNF (5) HTN (hypertension) Code(s): I10 - ESSENTIAL (PRIMARY) HYPERTENSION Status: Chronic Qualifiers: Hypertension type: essential hypertension Qualified Code(s): I10 - Essential (primary) hypertension (6) Morbid obesity with BMI of 40.0-44.9, adult Code(s): E66.01 - MORBID (SEVERE) OBESITY DUE TO EXCESS CALORIES; Z68.41 - BODY MASS INDEX [BMI]40.0-44.9, ADULT Status: Chronic - Plan PT/OT, social worker assistant, respiratory therapy, out of bed/ambulate, DVT proph w/SCDs Stable overall Continue Dexamethasone 6mg po daily Continue Vit C/Zinc/D3/Eliquis OOB with PT Incentive spirometer q2h Will return home with HH/PT, does not want to go to SNF AM lab: H/H, creatinine Likely home in am 07/13/20
[2020-07-12] MEDS: Gabapentin 300 MG CAP PO SCH (21:43)
[2020-07-12] MEDS: Atorvastatin Calcium 20 MG TAB PO SCH (21:43)
[2020-07-13] MEDS: Guaifenesin DM 100-10/5 ML UDCUP PO SCH ×4 (01:38→15:10)
[2020-07-13] MEDS ORDERED: Dexamethasone 4 MG TAB PO SCH (08:00)
[2020-07-13] MEDS: Ascorbic Acid 500 mg Chewable Tablet PO SCH (08:32)
[2020-07-13] MEDS: Cholecalciferol (Vitamin D3) 400 UNITS TAB PO SCH (08:32)
[2020-07-13] MEDS: Furosemide 80 MG TAB PO SCH (08:32)
[2020-07-13] MEDS: Zinc Sulfate 220 MG CAP PO SCH (08:32)
[2020-07-13] MEDS: Amlodipine 10 MG TAB PO SCH (08:32)
[2020-07-13] MEDS: Carvedilol 25 MG TAB PO SCH (08:32)
[2020-07-13] MEDS: levETIRAcetam 500 MG TAB PO SCH (08:32)
[2020-07-13] MEDS: Apixaban 5 MG TAB PO SCH (08:32)
[2020-07-13 16:33] VITALS: BP 134/97; TEMP 98.1
--- NOTE | 2020-07-15 09:51 | DIS ---
DATE OF ADMISSION: 07/08/2020 DATE OF DISCHARGE: 07/13/2020 DISCHARGE DIAGNOSES: 1. COVID-19 viral infection. 2. Acute hypoxic respiratory failure secondary to #1, resolved. 3. Acute metabolic encephalopathy, multifactorial, resolving. 4. Severe physical deconditioning. 5. Hypertension, stable. 6. Morbid obesity. CONSULTATIONS: None. PERTINENT LABORATORY AND X-RAY FINDINGS: Potassium ranged between 3.4 to 3.8. Lactic acid level 2.0. Ferritin ranged between 138 to 146. CRP ranged between 9.31 to 9.60. CBC showed a hemoglobin ranging between 10.1 to 11.9. D-dimer ranged between 0.58 to 0.69. Urine culture dated 07/06/2020 showed less than 5000 colonies of gram-negative rods. Blood cultures dated 07/06/2020 showed 1/2 positive for presumptive micrococcus species consistent with skin contaminant. CT of the brain without contrast dated 07/06/2020 showed no acute intracranial process. Portable chest x-ray dated 07/06/2020 showed no acute process. HOSPITAL COURSE: The patient was initially admitted after presenting with altered mentation with increased shortness of breath. The patient was COVID-19 positive. The patient apparently became increasingly confused with altered mentation, at which point, she was brought to the emergency room. Chest imaging was performed showing no acute process. The patient was initially placed on IV Rocephin and given IV fluids after concern for potential underlying urinary tract infection. Urine culture showed less than 5000 colonies of gram-negative rods; however, the patient did receive antibiotic coverage. The patient received general supportive management including vitamin C, zinc, and dexamethasone. The patient did require low volume of oxygen supplementation intermittently, however, has weaned to room air by the time of discharge. The patient was noted with deconditioning and limited mobility status during her hospital stay with recommendations to consider [facility] facility placement. Discussions were had with the patient and family regarding potential [facility] facility transfer. However, the patient and family were adamant that the patient should return home to receive home health services and care from the family. The patient does remain high risk for falls and decompensation due to her deconditioned state and limited mobility status. I have examined the patient at the time of discharge and discussed followup instructions. The patient verbalizes understanding and agreement, ready for discharge on 07/13/2020. DISCHARGE MEDICATIONS: 1. Coreg 25 mg p.o. b.i.d. 2. Lasix 80 mg p.o. daily. 3. Gabapentin 300 mg p.o. q.h.s. 4. Simvastatin 40 mg p.o. q.h.s. 5. Decadron 6 mg p.o. daily x5 days. 6. Eliquis 5 mg p.o. b.i.d. 7. Keppra 500 mg p.o. b.i.d. 8. Norvasc 10 mg p.o. daily. 9. Protonix 40 mg p.o. daily. 10. Vitamin C 1000 mg p.o. daily. 11. Vitamin D3 of 400 units p.o. daily x10 days. 12. Zinc sulfate 220 mg p.o. daily. FOLLOWUP: The patient may follow up with her primary care provider, Dr. Bertin Pickard, within 7 days of discharge. CONDITION ON DISCHARGE: Stable. ACTIVITY: Ad-dudley. Rolling walker with standby/contact guard assistance. High fall risk precautions. SPECIAL INSTRUCTIONS: Continue [facility] including physical and occupational therapy. DIET: Regular. CODE STATUS: Full. DISPOSITION: To home with [facility] on 07/13/2020. TIME SPENT: Total time preparing and coordinating discharge, 37 minutes. Job ID: [id number]
--- NOTE | 2020-07-29 13:12 | EKG ---
Test Reason : Blood Pressure : / mmHG Vent. Rate : 081 BPM Atrial Rate : 081 BPM P-R Int : 150 ms QRS Dur : 076 ms QT Int : 416 ms P-R-T Axes : 050 007 266 degrees QTc Int : 483 ms Normal sinus rhythm Low voltage QRS Nonspecific T wave abnormality Prolonged QT Abnormal ECG Confirmed by ADRIANO CÁRDENAS ([id number]), medical editor CURT REYES ([id number]) on 07/29/2020 1:11:52 PM Referred By: Confirmed By:ADRIANO Isbell
== END 2020-07-13 17:07 | disposition home health service (06) | DRG 177 ==
LOC: ERS 18:06 → INTOOBSV 22:10 → T4-B 22:10 → OBSVTOIN 07-08 09:48
PROVIDERS: ADMIT Student in an Organized Health Care Education/Training Program; ATTEND Family Medicine
DX: U07.1 COVID-19 (principal); J96.01 Acute respiratory failure with hypoxia; G93.41 Metabolic encephalopathy; Z68.41 Body mass index [BMI] 40.0-44.9, adult; N17.9 Acute kidney failure, unspecified; N39.0 Urinary tract infection, site not specified; I10 Essential (primary) hypertension; E66.01 Morbid (severe) obesity due to excess calories; G40.909 Epilepsy, unspecified, not intractable, without status epilepticus; E78.5 Hyperlipidemia, unspecified; Z96.653 Presence of artificial knee joint, bilateral; Z87.11 Personal history of peptic ulcer disease; Z90.49 Acquired absence of other specified parts of digestive tract; Z79.899 Other long term (current) drug therapy; Z79.01 Long term (current) use of anticoagulants
CPT/HCPCS: 36415; 36416; 51701; 70450; 71045; 80048; 80053; 81003; 81015; 82565; 82728; 83605; 83690; 85014; 85018; 85025; 85049; 85379; 86140; 87040; 87086; 87149; 93005; 96365; 96375; 96376; G0378; J0360; J0696; J1100; J3490; J8540

== ENCOUNTER 2020-10-01 08:51 | Outpatient (CLI) | payer MEDICARE, BC, OTHER | END 2020-10-01 08:52 | disposition home or self-care (01) | LOC: RAD 08:51 | PROVIDERS: ATTEND Surgery | DX: Z48.815 Encounter for surgical aftercare following surgery on the digestive system (principal); Z98.84 Bariatric surgery status | CPT/HCPCS: 74018 ==